=== PATIENT | male | born 1955 | race Caucasian/White ===

== ENCOUNTER 2017-08-07 05:59 | Emergency (ER) | payer MEDICAID ==
[~2017-08-07] VITALS: Ht 188 cm; Wt 80.0 kg
[~2017-08-07 05:59] MED LIST: ACET325T21 PO; ALBU18HF INH; ALBU2.5V11 NEB; ALBU8.5H5 INH; ALPR0.25 PO; ALPR0.5T6 PO; BUDE10.2 INH; DOCU-131 PO; FLUT1DIS3 INH; FURO-92 PO; GUAI5SYR PO; HYDR-3237 PO; IPRA0.2S35 INH; IPRA3AMP INH; LACT10SO5 NG; LEVO500T8 PO; MAGN400T7 PO; METH4TAB2 PO; METO25TA35 PO; NICO-485 TD; NICO-487 TD; OXYGEN INH; PANT40TA3 PO; POTA10TA31 PO; PRED10TA14 PO; PRED20TA PO; SPIR50TA2 PO; TIOT18CA INH; TIOT4MIS5 INH
[2017-08-07] MEDS ORDERED: DIAZEPAM 5 MG TABLET PO STA (06:12)
[2017-08-07] MEDS ORDERED: IBUPROFEN 200 MG TABLET ONE (06:13)
[2017-08-07] MEDS ORDERED: DIAZEPAM 5 MG TABLET ONE (06:13)
[2017-08-07] MEDS ORDERED: IBUPROFEN 200 MG TABLET PO ONE (06:30)
[2017-08-07 06:58] LABS: HEMATOCRIT 42.1 % (39.2-51.8); HEMOGLOBIN 14.1 g/dL (13.7-18.0); WHITE BLOOD COUNT 6.9 x10^3/uL (3.4-10)
[2017-08-07 07:13] LABS: BLOOD UREA NITROGEN 14 mg/dL (7-18)
[2017-08-07 07:17] LABS: IS PT STATUS REG ER OR PRE ER? YES
[2017-08-07 09:14] VITALS: BP 112/76
== END 2017-08-07 09:17 | disposition home or self-care (01) ==
LOC: ED 06:57
DX: S39.012A Strain of muscle, fascia and tendon of lower back, initial encounter (principal); J44.9 Chronic obstructive pulmonary disease, unspecified; I50.9 Heart failure, unspecified; Z87.891 Personal history of nicotine dependence; X58.XXXA Exposure to other specified factors, initial encounter; Y93.89 Activity, other specified; Y92.89 Other specified places as the place of occurrence of the external cause; Y99.8 Other external cause status
CPT/HCPCS: 36415; 71010; 80048; 82040; 84484; 85025; 85379; 93005; 99285

== ENCOUNTER 2019-10-07 16:48 | Inpatient (IN) | payer MEDICAID ==
[~2019-10-07] VITALS: Ht 172.7 cm; Wt 69.2 kg
[~2019-10-07 16:48] MED LIST changes: -IPRA3AMP INH; +IPRA3AMP30 INH; +LACT10SO24 NG; -LACT10SO5 NG; -MAGN400T7 PO; +MAGN400T9 PO; +PROPOFOL 10 MG/ML, 100ML IV ONE; +ROCURONIUM 10MG/ML,5ML ONE; -SPIR50TA2 PO; +SPIR50TA4 PO
--- NOTE | 2019-10-07 16:50 | NUR ---
Code lupe called @ 6502 PT arrived @ 5574
[2019-10-07] MEDS ORDERED: ETOMIDATE 20 MG/10 ML ONE (17:10)
[2019-10-07] MEDS: PROPOFOL 100 ML IV PRN (17:17)
[2019-10-07 17:22] LABS: MEAN CORPUSCULAR HEMOGLOBIN 31.5 pg (27.5-34.5); MEAN CORPUSCULAR HGB CONC 32.4 g/dL (33.2-36.2); MEAN CORPUSCULAR VOLUME 97.4 fL (81-97); MEAN PLATELET VOLUME 6.6 fL (7.4-10.4); PLATELET COUNT 231 x10^3/uL (130-400); RED BLOOD COUNT 4.46 x10^6/uL (4.38-5.82); RED CELL DISTRIBUTION WIDTH 14.9 % (9.4-14.8)
[2019-10-07] MEDS ORDERED: ROCURONIUM 10 MG/ML,10ML IVPush ONE (17:30)
[2019-10-07] MEDS ORDERED: NOREPINEPHRINE 4 MG in SODIUM CHLORIDE 0.9% 246 ML IV PRN (17:30)
[2019-10-07] MEDS ORDERED: ETOMIDATE 20 MG/10 ML IV ONE (17:30)
[2019-10-07] MEDS ORDERED: SODIUM CHLORIDE FLUSH 10ML SYR IVF ONE (17:30)
[2019-10-07] MEDS ORDERED: SODIUM CHLORIDE 0.9% 1,000ML IVBOLUS ONE (17:30)
[2019-10-07 17:34] LABS: ALANINE AMINOTRANSFERASE 254 U/L (12-78); ALBUMIN 2.8 g/dL (3.4-5.0); ANION GAP 13 mmol/L (5-15); CALCIUM 8.4 mg/dL (8.5-10.1); CHLORIDE 104 mmol/L (98-107); CREATININE 1.12 mg/dL (0.7-1.3)
[2019-10-07 17:39] LABS: ALKALINE PHOSPHATASE 208 U/L (45-117); BILIRUBIN,TOTAL 0.9 mg/dL (0.2-1.0); TOTAL PROTEIN 6.2 g/dL (6.4-8.2); TROPONIN I 0.094 ng/mL (0.000-0.045)
--- NOTE | 2019-10-07 17:42 | NUR ---
[facility] STATUS POST CARDIAC ARREST. PER EMS PT WAS IN ASYSTOLE AND CONVERTED TO PEA THEN SINUS TACH AT A RATE OF 120. PT INTUBATED BY ER PHYSICIAN 8.0 AND 243 AT TEETH. 100 MG ROCURONIUM AND 10 MG GIVEN PRIOR TO INTUBATION.
--- NOTE | 2019-10-07 17:42 | NUR ---
LAB CALLED CRITICAL LACTATE OF 10.4. MADE AWARE.
[2019-10-07 17:46] LABS: INTERNATIONAL NORMALIZED RATIO 1.16 (0.93-1.1); PROTHROMBIN TIME 12.1 Seconds (9.6-11.5)
--- NOTE | 2019-10-07 17:49 | NUR ---
1000 ML NS COMPLETED BY EMS. 1000 ML NS COMPLETED BY THIS RN. PER MD 500 ML MORE TO GIVE.
[2019-10-07 17:51] LABS: MD YES
[2019-10-07] MEDS ORDERED: PIPERACILLIN/TAZO/PMX 3.375GM 50 ML IV ONE (18:00)
[2019-10-07] MEDS ORDERED: VANCOMYCIN PER PHARMACY MC ONE (18:00)
[2019-10-07] MEDS ORDERED: SODIUM CHLORIDE 0.9%, 500ML IVBOLUS ONE (18:00)
[2019-10-07] MEDS ORDERED: PIPERACILLIN/TAZO/PMX 3.375GM 50 ML ONE ×2 (18:08→23:49)
[2019-10-07] MEDS: PIPERACILLIN/TAZO/PMX 3.375GM 50 ML IV SCH (18:20)
[2019-10-07] MEDS ORDERED: VANCOMYCIN 1,400 MG in SODIUM CHLORIDE 0.9% 250 ML IV ONE (18:30)
[2019-10-07 18:38] LABS: BAND#(MANUAL) 4.55 x10^3/uL; BANDS%(MANUAL) 37 % (0-7); LYMPH#(MANUAL) 0.37 x10^3/uL (1-3.4); LYMPHS% (MANUAL) 3 % (22-44); MONOS#(MANUAL) 0.74 x10^3/uL (0.3-2.7); MONOS% (MANUAL) 6 % (2-9); SEG#(MANUAL) 6.64 x10^3/uL (1.8-6.8); SEGS% (MANUAL) 54 % (42-75)
[2019-10-07 18:39] LABS: <PLATELET ESTIMATE> ADEQUATE; <PLT MORPHOLOGY> NORMAL PLT MORPH; ANISOCYTOSIS 1+; TOXIC GRAN 1+
--- NOTE | 2019-10-07 18:43 | NUR ---
RT TURNED DOWN FIO2 TO 50. PT PO2 DOWN TO 89. FIO2 INCREASED BY THIS RN TO 100 IN 2 MINUTE INTERVALS. RT MADE AWARE.
--- NOTE | 2019-10-07 18:47 | NUR ---
PER MD CONTRAINDICATION TO TARGET TEMP COOLING IS SEPSIS.
[2019-10-07] MEDS ORDERED: FENTANYL PF 100 MCG/2ML ONE ×2 (19:42→21:25)
--- NOTE | 2019-10-07 19:58 | NUR ---
FIO2 AT 70 PEEP AT 8. SPO2 DOWN TO 88% . RT IN ROOM NOW NEW SETTINGS 70 FIO2, PEEP 10.
[2019-10-07] MEDS ORDERED: FENTANYL PF 100 MCG/2ML IVPush ONE ×2 (20:00→21:30)
--- NOTE | 2019-10-07 21:04 | NUR ---
LATE NOTE 2029. PT AWAKE AT THIS TIME MOVING ALL 4 EXTREMITIES. PT ABLE TO ANSWER YES NO QUESTIONS. PT STAES HIS STOMACH HURTS. DR CROCKER MADE AWARE. PROPOFOL INCREASED TO 15 MCG/KG/MIN. PT NOW RESTING COMFORTABLY IN BED. FIO2 OF 70 PEEP OF 10. PT MOVED TO HOSPITAL BED. TUBE PLACEMENT REMAINS 24 AT THE TEETH WITH SECUREMENT DEVICE IN PLACE. URINE OUTPUT THIS STAY SO FAR AT 550 ML. INTAKE AT 2800 ML
--- NOTE | 2019-10-07 21:22 | NUR ---
PT IN BED WITH EYES OPEN. PT IS BITING AT THE TUBE. PT ASKED IF TUBE IS HURTING HIM. NODS HEAD YES. MD MADE AWARE VERBAL ORDER FOR ONE TIME DOSE OF 100 MCG OF FENTANYL.
[2019-10-07] MEDS ORDERED: VANCOMYCIN PER PHARMACY MC PRN (22:00)
[2019-10-07] MEDS ORDERED: ONDANSETRON 2MG/ML, 2ML IVPush PRN (22:00)
[2019-10-07] MEDS ORDERED: ENOXAPARIN 40 MG/0.4 ML ONE (22:26)
[2019-10-07] MEDS ORDERED: FAMOTIDINE 20 MG/2 ML ONE (22:27)
[2019-10-07] MEDS ORDERED: ACETAMINOPHEN 650 MG SUPP ONE (22:27)
--- NOTE | 2019-10-07 22:30 | NUR ---
REPORT RECEIVED AND CARE ASSUMED. PT WITH OLMOS TEMP 101.1. TACHY ON MONITOR 117. DISCUSSED WITH DR CROCKER AND ORDER FOR 650 MG TYLENOL SUPOSSITORY RECEIVED. PT MEDICATED PER DEC. PT NOT FULLY SEDATED. OPENING EYES AND NODDING HEAD. RESP AT BEDSIDE TO REASSESS. PROPOFOL ADJUSTED FOR SEDATION. AWAITING PULMONOLOGY TO EVAL FOR FURTHER SEDATION ORDERS.
[2019-10-07] MEDS ORDERED: ACETAMINOPHEN 650 MG SUPP PR PRN (23:00)
--- NOTE | 2019-10-07 23:05 | NUR ---
PULMONOLOGY AT BEDSIDE TO EVAL. PT CONTINUES TO OPEN EYES INTERMITTENTLY-DOES NOT APPEAR IN ACUTE DISTRESS AT THIS TIME. REQUESTED MORE SEDATION ORDERS FROM PULM--AWAITING ORDERS. NO VERBALS GIVEN. PROPOFOL INCREASED.
[2019-10-07] MEDS: SODIUM CHLORIDE 0.9% 1,000 ML IV SCH (23:10)
[2019-10-07] MEDS: FAMOTIDINE 20 MG/2 ML IV SCH (23:13)
[2019-10-07] MEDS: ENOXAPARIN 40 MG/0.4 ML SQ SCH (23:36)
[2019-10-07] MEDS ORDERED: PROPOFOL 100 ML IV ONE (23:41)
[2019-10-08 00:09] LABS: TROPONIN I 0.762 ng/mL (0.000-0.045)
[2019-10-08] MEDS ORDERED: PHARMACOKINETIC MONITORING MC PRN (00:30)
--- NOTE | 2019-10-08 00:35 | NUR ---
DISCUSSED PT VS WITH DR CROCKER. ORDER FOR ICE PACKS TO HELP COOL PT RECEIVED. NO NEW MEDS. MD AWARE OF PT'S BP AND NEED FOR INCREASED LEVO. AWARE OF REPEAT TROP LEVELS. DISCUSSED UA--ONE TO BE COLLECTED AND SENT. NO FURTHER ORDERS AT THIS TIME.
[2019-10-08] MEDS ORDERED: NOREPINEPHRINE 4 MG in SODIUM CHLORIDE 0.9% 246 ML IV PRN (00:40)
[2019-10-08] MEDS ORDERED: LIDOCAINE-MPF 1%, 2ML ENDO PRN (01:00)
[2019-10-08] MEDS ORDERED: SENNA 176 MG/5 ML ORAL SOL NG PRN (01:00)
[2019-10-08] MEDS ORDERED: PHARMACY MAY ADJ FOR RENAL FX MC SCH (01:00)
[2019-10-08] MEDS ORDERED: DEXTROSE 4 GM TAB.CHEW PO PRN (01:00)
[2019-10-08] MEDS ORDERED: DEXTROSE 50%, 50ML SYRINGE IVPush PRN (01:00)
[2019-10-08] MEDS: ALBUTEROL/IPRATROPIUM 2.5MG/0.5MG, 3 ML INLINE SCH ×5 (01:00→22:08)
[2019-10-08] MEDS ORDERED: SENNA/DOCUSATE TABLET NG PRN (01:00)
[2019-10-08] MEDS ORDERED: GLUCAGON 1 MG IM PRN (01:00)
[2019-10-08] MEDS ORDERED: FENTANYL PF 100 MCG/2ML ONE ×3 (01:02→06:56)
[2019-10-08] MEDS: FENTANYL PF 100 MCG/2ML IVPush PRN ×7 (01:05→06:59)
--- NOTE | 2019-10-08 01:06 | NUR ---
ORDERS RECEIVED. PT CONTINUES WITH INTERMITTENT EYE OPENING. MEDICATED PER DEC.
[2019-10-08 01:18] LABS: MICROSCOPIC INDICATED
[2019-10-08 01:23] LABS: TROPONIN I 0.927 ng/mL (0.000-0.045)
[2019-10-08 01:28] LABS: CULTURE INDICATED? YES
[2019-10-08 01:30] LABS: MEAN CORPUSCULAR HEMOGLOBIN 32.1 pg (27.5-34.5); MEAN CORPUSCULAR HGB CONC 33.2 g/dL (33.2-36.2); MEAN CORPUSCULAR VOLUME 96.8 fL (81-97); MEAN PLATELET VOLUME 6.9 fL (7.4-10.4); PLATELET COUNT 205 x10^3/uL (130-400); RED BLOOD COUNT 4.07 x10^6/uL (4.38-5.82); RED CELL DISTRIBUTION WIDTH 15.5 % (9.4-14.8)
[2019-10-08] MEDS ORDERED: ALPR0.5T7 PO (01:35)
[2019-10-08] MEDS ORDERED: GUAI400T81 PO (01:35)
[2019-10-08] MEDS ORDERED: GUAI100L6 PO (01:35)
[2019-10-08] MEDS ORDERED: IPRA3AMP30 IH (01:35)
[2019-10-08] MEDS ORDERED: BUDE10.2 INH (01:35)
[2019-10-08] MEDS ORDERED: ALBU90AE INH (01:35)
[2019-10-08] MEDS ORDERED: HYDR-3240 PO (01:35)
[2019-10-08] MEDS ORDERED: PRED10TA PO (01:35)
[2019-10-08] MEDS ORDERED: TIOT18CA INH (01:35)
[2019-10-08] MEDS ORDERED: ACET650S21 PO (01:35)
[2019-10-08] MEDS: PIPERACILLIN/TAZO/PMX 3.375GM 50 ML IV SCH ×3 (01:39→18:44)
[2019-10-08 01:51] LABS: MD YES
[2019-10-08 01:54] LABS: BAND#(MANUAL) 2.54 x10^3/uL; BANDS%(MANUAL) 41 % (0-7); LYMPH#(MANUAL) 0.43 x10^3/uL (1-3.4); LYMPHS% (MANUAL) 7 % (22-44); METAMYELOCYTES# (MANUAL) 0.37 x10^3/uL (0-0); METAMYELOCYTES% (MANUAL) 6 % (0-1); MONOS#(MANUAL) 0.06 x10^3/uL (0.3-2.7); MONOS% (MANUAL) 1 % (2-9); SEG#(MANUAL) 2.79 x10^3/uL (1.8-6.8); SEGS% (MANUAL) 45 % (42-75)
[2019-10-08 01:55] LABS: <PLATELET ESTIMATE> ADEQUATE; <PLT MORPHOLOGY> NORMAL PLT MORPH; ANISOCYTOSIS 1+; TOXIC GRAN 1+
[2019-10-08] MEDS ORDERED: ALBUTEROL/IPRATROPIUM 2.5MG/0.5MG, 3 ML ONE (02:00)
--- NOTE | 2019-10-08 02:03 | NUR ---
DISCUSSED PT'S TROP 0.[address] CROCKER--NO NEW ORDERS. OBI AWARE OF PT'S CONTINUED TEMP 102. ORDER FOR TYLENOL SUPPOSITORY 650MG Q4H PRN TEMP RECEIVED. AWARE OF AST/ALT ELEVATED--OK TO GIVE. NO FURTHER ORDERS AT THIS TIME.
[2019-10-08] MEDS ORDERED: ACETAMINOPHEN 650 MG SUPP ONE (02:20)
[2019-10-08] MEDS: ACETAMINOPHEN 650 MG SUPP PR PRN (02:57)
--- NOTE | 2019-10-08 03:13 | NUR ---
PT MEDICATED PER MAR FOR CONTINUED FEVERS. NO CHANGES MADE TO DRIPS. PT TOLERATING WELL AT THIS TIME.
[2019-10-08] MEDS: NOREPINEPHRINE 4 MG in SODIUM CHLORIDE 0.9% 246 ML IV PRN ×3 (03:16→14:17)
--- NOTE | 2019-10-08 03:42 | NUR ---
CALLED TO CLARIFY VANCO ORDERS WITH PHARMACY. NO MORE VANCO TO BE GIVEN TONIGHT PER VASU. NONE SCHEDULED AT THIS TIME.
--- NOTE | 2019-10-08 04:23 | NUR ---
PT OPENING EYES AND APPEARING UNCOMFORTABLE. MEDICATED PER MAR. TEMP IMPROVING. LEVO AND PROPOFOL INFUSIONS REMAIN THE SAME AT THIS TIME.
--- NOTE | 2019-10-08 05:20 | NUR ---
PT OPENING EYES. MEDICATED PER DEC AND PROPOFOL INCREASED. REPORT TO TREVOR GALO.
--- NOTE | 2019-10-08 05:37 | NUR ---
BEDSIDE REPORT RECEIVED FROM CLOVER QUIROZ.
[2019-10-08 06:29] LABS: MEAN CORPUSCULAR HGB CONC 32.9 g/dL (33.2-36.2); MEAN CORPUSCULAR VOLUME 97.3 fL (81-97); MEAN PLATELET VOLUME 6.9 fL (7.4-10.4); PLATELET COUNT 159 x10^3/uL (130-400); RED BLOOD COUNT 4.98 x10^6/uL (4.38-5.82); RED CELL DISTRIBUTION WIDTH 15.8 % (9.4-14.8)
[2019-10-08] MEDS ORDERED: PROPOFOL 100 ML IV ONE (06:31)
[2019-10-08 06:42] LABS: ALBUMIN 2.4 g/dL (3.4-5.0); ANION GAP 6 mmol/L (5-15); CALCIUM 8.1 mg/dL (8.5-10.1); CHLORIDE 108 mmol/L (98-107)
[2019-10-08 06:47] LABS: TROPONIN I 0.978 ng/mL (0.000-0.045)
[2019-10-08 06:48] LABS: ALANINE AMINOTRANSFERASE 349 U/L (12-78); ALKALINE PHOSPHATASE 184 U/L (45-117); BILIRUBIN,TOTAL 0.8 mg/dL (0.2-1.0); CREATININE 0.68 mg/dL (0.7-1.3); TOTAL PROTEIN 5.7 g/dL (6.4-8.2)
[2019-10-08 06:50] LABS: TROPONIN I 0.983 ng/mL (0.000-0.045)
--- NOTE | 2019-10-08 07:12 | NUR ---
HOSPITALIST AUDRA CONTACTED REGARDING ELEVATED TROP. REPEAT EKG COMPLETED. NO NEW ORDERS RECEIVED. BEDSIDE REPORT TO CLOVER KEMP
[2019-10-08 07:26] LABS: MD YES
[2019-10-08 07:28] LABS: <PLATELET ESTIMATE> ADEQUATE; <PLT MORPHOLOGY> NORMAL PLT MORPH; ANISOCYTOSIS 1+; BAND#(MANUAL) 4.08 x10^3/uL; BANDS%(MANUAL) 40 % (0-7); LYMPHS% (MANUAL) 1 % (22-44); METAMYELOCYTES# (MANUAL) 0.51 x10^3/uL (0-0); METAMYELOCYTES% (MANUAL) 5 % (0-1); MONOS#(MANUAL) 0.41 x10^3/uL (0.3-2.7); MONOS% (MANUAL) 4 % (2-9); SEGS% (MANUAL) 50 % (42-75)
[2019-10-08 07:29] LABS: PMNS WITH VACUOLES 1+; TOXIC GRAN 1+
[2019-10-08] MEDS: SODIUM CHLORIDE 0.9% 1,000 ML IV SCH ×3 (07:42→21:45)
[2019-10-08] MEDS: FAMOTIDINE 20 MG/2 ML IV SCH ×2 (11:41→22:30)
[2019-10-08] MEDS: PROPOFOL 100 ML IV PRN ×3 (11:41→18:42)
[2019-10-08] MEDS: SODIUM CHLORIDE FLUSH 10ML SYR IVF SCH ×2 (11:41→22:30)
[2019-10-08] MEDS: POTASSIUM CHLORIDE 10% 40 MEQ/30 ML UDC PO SCH ×2 (12:25→22:30)
[2019-10-08] MEDS: VANCOMYCIN 1,400 MG in SODIUM CHLORIDE 0.9% 250 ML IV SCH (15:01)
[2019-10-08] MEDS ORDERED: METOPROLOL 1 MG/ML, 5ML ONE ×2 (15:26→20:06)
[2019-10-08] MEDS ORDERED: METOPROLOL 1 MG/ML, 5ML IVPush STA (15:28)
[2019-10-08] MEDS ORDERED: ACETAMINOPHEN 650 MG/20.3 ML UDC ONE (15:33)
[2019-10-08] MEDS: ACETAMINOPHEN 650 MG/20.3 ML UDC NG PRN (15:37)
[2019-10-08] MEDS ORDERED: DIGOXIN 0.25 MG/ML, 2ML IVPush ONE (16:00)
[2019-10-08] MEDS ORDERED: NOREPINEPHRINE 16 MG in SODIUM CHLORIDE 0.9% 246 ML IV PRN (16:07)
[2019-10-08] MEDS ORDERED: PHENYLEPHRINE 20 MG in SODIUM CHLORIDE 0.9% 248 ML IV PRN (20:00)
[2019-10-08] MEDS ORDERED: METOPROLOL 1 MG/ML, 5ML IVPush ONE (20:30)
[2019-10-08] MEDS: ENOXAPARIN 40 MG/0.4 ML SQ SCH (22:30)
[2019-10-08] MEDS: DIGOXIN 0.25 MG/ML, 2ML IVPush SCH (22:31)
[2019-10-09] MEDS: PIPERACILLIN/TAZO/PMX 3.375GM 50 ML IV SCH ×3 (00:05→11:38)
[2019-10-09] MEDS: PROPOFOL 100 ML IV PRN ×3 (01:05→17:21)
[2019-10-09] MEDS: ALBUTEROL/IPRATROPIUM 2.5MG/0.5MG, 3 ML INLINE SCH ×7 (03:36→22:51)
[2019-10-09] MEDS: DIGOXIN 0.25 MG/ML, 2ML IVPush SCH (04:09)
[2019-10-09 04:36] LABS: MEAN CORPUSCULAR HEMOGLOBIN 31.6 pg (27.5-34.5); MEAN CORPUSCULAR HGB CONC 32.6 g/dL (33.2-36.2); MEAN CORPUSCULAR VOLUME 96.9 fL (81-97); MEAN PLATELET VOLUME 7.2 fL (7.4-10.4); PLATELET COUNT 140 x10^3/uL (130-400); RED BLOOD COUNT 3.72 x10^6/uL (4.38-5.82); RED CELL DISTRIBUTION WIDTH 15.9 % (9.4-14.8)
[2019-10-09 04:45] LABS: ALANINE AMINOTRANSFERASE 187 U/L (12-78); ALBUMIN 1.8 g/dL (3.4-5.0); ANION GAP 4 mmol/L (5-15); CALCIUM 7.6 mg/dL (8.5-10.1); CHLORIDE 114 mmol/L (98-107)
[2019-10-09 04:48] LABS: ALKALINE PHOSPHATASE 138 U/L (45-117); BILIRUBIN,TOTAL 0.7 mg/dL (0.2-1.0); CREATININE 0.53 mg/dL (0.7-1.3); TOTAL PROTEIN 4.9 g/dL (6.4-8.2)
[2019-10-09 05:45] LABS: MD YES
[2019-10-09 05:47] LABS: BAND#(MANUAL) 3.03 x10^3/uL; BANDS%(MANUAL) 34 % (0-7); LYMPH#(MANUAL) 0.27 x10^3/uL (1-3.4); LYMPHS% (MANUAL) 3 % (22-44); METAMYELOCYTES# (MANUAL) 0.09 x10^3/uL (0-0); METAMYELOCYTES% (MANUAL) 1 % (0-1); MONOS#(MANUAL) 0.18 x10^3/uL (0.3-2.7); MONOS% (MANUAL) 2 % (2-9); SEG#(MANUAL) 5.34 x10^3/uL (1.8-6.8); SEGS% (MANUAL) 60 % (42-75)
[2019-10-09 05:48] LABS: <PLATELET ESTIMATE> ADEQUATE; <PLT MORPHOLOGY> NORMAL PLT MORPH; <RBC MORPHOLOGY> NORMAL; TOXIC GRAN 1+
[2019-10-09] MEDS ORDERED: MAGNESIUM SULFATE PMX 2GM/50ML 50 ML IV ONE (08:00)
[2019-10-09] MEDS: FAMOTIDINE 20 MG/2 ML IV SCH ×2 (08:18→21:34)
[2019-10-09] MEDS: SODIUM CHLORIDE FLUSH 10ML SYR IVF SCH ×2 (08:19→21:34)
[2019-10-09] MEDS: VANCOMYCIN 1,400 MG in SODIUM CHLORIDE 0.9% 250 ML IV SCH (08:19)
[2019-10-09] MEDS: SODIUM CHLORIDE 0.9% 1,000 ML IV SCH ×2 (11:38→23:09)
[2019-10-09] MEDS ORDERED: AMIODARONE 900 MG in DEXTROSE 5% 482 ML IV PRN (15:00)
[2019-10-09] MEDS ORDERED: FILTER 0.22 MICRON IV PRN (15:00)
[2019-10-09] MEDS ORDERED: AMIODARONE 150 MG in DEXTROSE 5% 100 ML IV ONE ×2 (15:00→15:30)
[2019-10-09] MEDS: CEFTRIAXONE PMX 1GM/50ML 50 ML IV SCH (15:46)
[2019-10-09] MEDS: ENOXAPARIN 40 MG/0.4 ML SQ SCH (21:34)
[2019-10-10] MEDS: PROPOFOL 100 ML IV PRN ×3 (02:14→16:43)
[2019-10-10] MEDS: ALBUTEROL/IPRATROPIUM 2.5MG/0.5MG, 3 ML INLINE SCH ×6 (03:21→22:32)
[2019-10-10 04:25] LABS: MEAN CORPUSCULAR HEMOGLOBIN 31.3 pg (27.5-34.5); MEAN CORPUSCULAR HGB CONC 33.2 g/dL (33.2-36.2); MEAN CORPUSCULAR VOLUME 94.2 fL (81-97); MEAN PLATELET VOLUME 7.7 fL (7.4-10.4); PLATELET COUNT 121 x10^3/uL (130-400); RED BLOOD COUNT 3.38 x10^6/uL (4.38-5.82); RED CELL DISTRIBUTION WIDTH 15.8 % (9.4-14.8)
[2019-10-10 05:37] LABS: MD YES
[2019-10-10 05:40] LABS: BAND#(MANUAL) 0.74 x10^3/uL; BANDS%(MANUAL) 10 % (0-7); EOS#(MANUAL) 0.07 x10^3/uL (0.0-0.4); EOS% (MANUAL) 1 % (1-7); LYMPH#(MANUAL) 0.22 x10^3/uL (1-3.4); LYMPHS% (MANUAL) 3 % (22-44); MONOS#(MANUAL) 0.22 x10^3/uL (0.3-2.7); MONOS% (MANUAL) 3 % (2-9); MYELOCYTES# (MANUAL) 0.07 x10^3/uL (0-0); MYELOCYTES% (MANUAL) 1 % (0-0); NRBC % (MANUAL) 1 % (0-1); SEG#(MANUAL) 6.07 x10^3/uL (1.8-6.8); SEGS% (MANUAL) 82 % (42-75)
[2019-10-10 05:41] LABS: <PLATELET ESTIMATE> ADEQUATE; <PLT MORPHOLOGY> NORMAL PLT MORPH; ANISOCYTOSIS 1+; TOXIC GRAN 1+
[2019-10-10] MEDS: SODIUM CHLORIDE FLUSH 10ML SYR IVF SCH ×2 (07:16→20:33)
[2019-10-10 07:27] LABS: ANION GAP 6 mmol/L (5-15); CALCIUM 7.8 mg/dL (8.5-10.1); CHLORIDE 112 mmol/L (98-107); CREATININE 0.49 mg/dL (0.7-1.3)
[2019-10-10] MEDS: FENTANYL PF 100 MCG/2ML IVPush PRN ×2 (07:54→23:47)
[2019-10-10] MEDS: SODIUM CHLORIDE 0.9% 1,000 ML IV SCH (08:35)
[2019-10-10] MEDS: methylPREDNISolone SOD SUCC 40 MG/ML IVPush SCH ×3 (09:29→23:47)
[2019-10-10] MEDS: FAMOTIDINE 20 MG/2 ML IV SCH ×2 (09:30→20:33)
[2019-10-10 10:43] LABS: HIT RESULT NEGATIVE (NEGATIVE)
[2019-10-10] MEDS ORDERED: ALBUMIN HUMAN 25% 100 ML IV ONE (11:30)
--- NOTE | 2019-10-10 11:34 | NUR ---
TF GOAL: w/ propofol: PROMOTE @ 75ml/hr; without propofol: 80ml/hr
[2019-10-10] MEDS: CEFTRIAXONE PMX 1GM/50ML 50 ML IV SCH (15:00)
[2019-10-10] MEDS: ENOXAPARIN 40 MG/0.4 ML SQ SCH (20:33)
[2019-10-11] MEDS: ALBUTEROL/IPRATROPIUM 2.5MG/0.5MG, 3 ML INLINE SCH ×6 (02:38→22:12)
[2019-10-11 03:55] LABS: MEAN CORPUSCULAR HEMOGLOBIN 31.8 pg (27.5-34.5); MEAN CORPUSCULAR VOLUME 93.4 fL (81-97); MEAN PLATELET VOLUME 7.4 fL (7.4-10.4); PLATELET COUNT 128 x10^3/uL (130-400); RED BLOOD COUNT 3.01 x10^6/uL (4.38-5.82); RED CELL DISTRIBUTION WIDTH 15.1 % (9.4-14.8)
[2019-10-11 04:04] LABS: MD YES
[2019-10-11 04:09] LABS: <PLATELET ESTIMATE> ADEQUATE; <PLT MORPHOLOGY> NORMAL PLT MORPH; <RBC MORPHOLOGY> NORMAL; BAND#(MANUAL) 0.11 x10^3/uL; BANDS%(MANUAL) 2 % (0-7); LYMPH#(MANUAL) 0.21 x10^3/uL (1-3.4); LYMPHS% (MANUAL) 4 % (22-44); METAMYELOCYTES# (MANUAL) 0.05 x10^3/uL (0-0); METAMYELOCYTES% (MANUAL) 1 % (0-1); SEG#(MANUAL) 4.93 x10^3/uL (1.8-6.8); SEGS% (MANUAL) 93 % (42-75); TOXIC GRAN 1+
[2019-10-11] MEDS: PROPOFOL 100 ML IV PRN ×2 (05:11→17:55)
[2019-10-11] MEDS: FUROSEMIDE 20 MG/2 ML IV SCH ×2 (09:18→21:01)
[2019-10-11] MEDS: methylPREDNISolone SOD SUCC 40 MG/ML IVPush SCH ×2 (09:19→17:23)
[2019-10-11] MEDS: SODIUM CHLORIDE FLUSH 10ML SYR IVF SCH ×2 (09:19→21:00)
[2019-10-11 10:35] LABS: ANION GAP 7 mmol/L (5-15); CHLORIDE 111 mmol/L (98-107); CREATININE 0.49 mg/dL (0.7-1.3)
[2019-10-11] MEDS: AMIODARONE 200 MG TABLET PO SCH ×2 (11:07→21:01)
[2019-10-11] MEDS: FAMOTIDINE 20 MG/2 ML IV SCH ×2 (11:07→21:00)
[2019-10-11] MEDS ORDERED: DEXMEDETOMIDINE 200 MCG in SODIUM CHLORIDE 0.9% 48 ML IV PRN (13:30)
[2019-10-11] MEDS: CEFTRIAXONE PMX 1GM/50ML 50 ML IV SCH (15:38)
[2019-10-11] MEDS: FENTANYL PF 100 MCG/2ML IVPush PRN ×2 (17:23→21:02)
[2019-10-11] MEDS: ENOXAPARIN 40 MG/0.4 ML SQ SCH (21:01)
[2019-10-12] MEDS: FENTANYL PF 100 MCG/2ML IVPush PRN ×3 (01:04→15:32)
[2019-10-12] MEDS: methylPREDNISolone SOD SUCC 40 MG/ML IVPush SCH ×2 (01:04→07:36)
[2019-10-12] MEDS: DEXMEDETOMIDINE 400 MCG in SODIUM CHLORIDE 0.9% 96 ML IV PRN ×2 (01:52→17:42)
[2019-10-12] MEDS: ALBUTEROL/IPRATROPIUM 2.5MG/0.5MG, 3 ML INLINE SCH ×6 (02:40→22:00)
[2019-10-12 05:58] LABS: BASOPHILS % (AUTO) 0 % (0-1); EOSINOPHILS % (AUTO) 0 % (1-7); LYMPHOCYTES # (AUTO) 0.14 x10^3/uL (1-3.4); LYMPHOCYTES % (AUTO) 3 % (22-44); MD NO; MEAN CORPUSCULAR HEMOGLOBIN 31.8 pg (27.5-34.5); MEAN CORPUSCULAR VOLUME 93.6 fL (81-97); MEAN PLATELET VOLUME 7.2 fL (7.4-10.4); MONOCYTES % (AUTO) 4 % (2-9); NEUTROPHILS # (AUTO) 5.05 x10^3/uL (1.8-6.8); NEUTROPHILS % (AUTO) 94 % (42-75); PLATELET COUNT 165 x10^3/uL (130-400); RED BLOOD COUNT 3.26 x10^6/uL (4.38-5.82); RED CELL DISTRIBUTION WIDTH 14.8 % (9.4-14.8)
[2019-10-12] MEDS: FUROSEMIDE 20 MG/2 ML IV SCH (07:35)
[2019-10-12] MEDS: SODIUM CHLORIDE FLUSH 10ML SYR IVF SCH ×2 (07:35→21:38)
[2019-10-12] MEDS: AMIODARONE 200 MG TABLET PO SCH ×2 (07:36→21:38)
[2019-10-12] MEDS: FAMOTIDINE 20 MG/2 ML IV SCH ×2 (09:05→21:37)
[2019-10-12 09:32] LABS: ANION GAP 5 mmol/L (5-15); CALCIUM 8.2 mg/dL (8.5-10.1); CHLORIDE 109 mmol/L (98-107); CREATININE 0.65 mg/dL (0.7-1.3)
[2019-10-12] MEDS ORDERED: methylPREDNISolone SOD SUCC 40 MG/ML IVPush SCH (10:00)
[2019-10-12] MEDS: POTASSIUM CHLORIDE 10% 20 MEQ/15 ML UDC PO SCH ×2 (10:00→21:37)
[2019-10-12] MEDS ORDERED: POTASSIUM CHLORIDE 20 MEQ PACKET ONE ×2 (10:09→21:29)
[2019-10-12] MEDS: BUSPIRONE 10 MG TABLET PO SCH ×3 (10:17→21:37)
[2019-10-12] MEDS: INSULIN LISPRO 100 UNITS/ML, PEN SQ-INSULIN SCH ×3 (10:55→23:21)
[2019-10-12] MEDS ORDERED: INSULIN LISPRO 100 UNITS/ML, PEN SQ-INSULIN SCH (11:00)
[2019-10-12] MEDS: CEFTRIAXONE PMX 1GM/50ML 50 ML IV SCH (15:33)
[2019-10-12] MEDS: PROPOFOL 100 ML IV PRN (19:31)
[2019-10-12] MEDS: FUROSEMIDE 40 MG/4 ML IV SCH (21:37)
[2019-10-12] MEDS: ENOXAPARIN 40 MG/0.4 ML SQ SCH (21:38)
[2019-10-13] MEDS: FENTANYL PF 100 MCG/2ML IVPush PRN ×3 (01:09→21:42)
[2019-10-13] MEDS: PROPOFOL 100 ML IV PRN (01:48)
[2019-10-13] MEDS: ALBUTEROL/IPRATROPIUM 2.5MG/0.5MG, 3 ML INLINE SCH ×6 (02:00→22:00)
[2019-10-13 04:22] LABS: ANION GAP 5 mmol/L (5-15); BASOPHILS % (AUTO) 0 % (0-1); CALCIUM 8.2 mg/dL (8.5-10.1); CHLORIDE 106 mmol/L (98-107); CREATININE 0.52 mg/dL (0.7-1.3); EOSINOPHILS % (AUTO) 0 % (1-7); LYMPHOCYTES # (AUTO) 0.25 x10^3/uL (1-3.4); LYMPHOCYTES % (AUTO) 3 % (22-44); MD NO; MEAN CORPUSCULAR HEMOGLOBIN 31.1 pg (27.5-34.5); MEAN CORPUSCULAR HGB CONC 33.2 g/dL (33.2-36.2); MEAN CORPUSCULAR VOLUME 93.6 fL (81-97); MEAN PLATELET VOLUME 7.6 fL (7.4-10.4); MONOCYTES # (AUTO) 0.36 x10^3/uL (0.2-0.8); MONOCYTES % (AUTO) 5 % (2-9); NEUTROPHILS # (AUTO) 6.67 x10^3/uL (1.8-6.8); NEUTROPHILS % (AUTO) 92 % (42-75); PLATELET COUNT 201 x10^3/uL (130-400); RED BLOOD COUNT 3.34 x10^6/uL (4.38-5.82); RED CELL DISTRIBUTION WIDTH 14.7 % (9.4-14.8)
[2019-10-13] MEDS: INSULIN LISPRO 100 UNITS/ML, PEN SQ-INSULIN SCH ×4 (04:35→23:00)
[2019-10-13] MEDS: SODIUM CHLORIDE FLUSH 10ML SYR IVF SCH ×2 (08:51→21:30)
[2019-10-13] MEDS: FUROSEMIDE 40 MG/4 ML IV SCH (08:51)
[2019-10-13] MEDS: POTASSIUM CHLORIDE 10% 20 MEQ/15 ML UDC PO SCH (08:51)
[2019-10-13] MEDS: FAMOTIDINE 20 MG/2 ML IV SCH ×2 (08:51→21:30)
[2019-10-13] MEDS: AMIODARONE 200 MG TABLET PO SCH ×2 (08:52→21:30)
[2019-10-13] MEDS: BUSPIRONE 10 MG TABLET PO SCH ×3 (08:52→21:30)
[2019-10-13] MEDS: ALPRazolam 1MG TAB PO SCH ×3 (08:54→21:48)
[2019-10-13] MEDS: methylPREDNISolone SOD SUCC 40 MG/ML IVPush SCH (08:54)
[2019-10-13] MEDS ORDERED: METOLAZONE 2.5 MG TABLET PO SCH (09:16)
[2019-10-13] MEDS: DEXMEDETOMIDINE 400 MCG in SODIUM CHLORIDE 0.9% 96 ML IV PRN ×3 (10:18→23:10)
[2019-10-13] MEDS: INSULIN GLARGINE 100 UNITS/ML, PEN SQ-INSULIN SCH (11:32)
[2019-10-13] MEDS ORDERED: SODIUM CHLORIDE 0.9%, 250ML IVBOLUS ONE (12:00)
[2019-10-13] MEDS: CEFTRIAXONE PMX 1GM/50ML 50 ML IV SCH (15:37)
[2019-10-13] MEDS ORDERED: SODIUM CHLORIDE 0.9%, 500ML IVBOLUS ONE (17:30)
[2019-10-13] MEDS: POTASSIUM CHLORIDE 10% 40 MEQ/30 ML UDC PO SCH (21:31)
[2019-10-13] MEDS: ENOXAPARIN 40 MG/0.4 ML SQ SCH (21:49)
[2019-10-14] MEDS: ALBUTEROL/IPRATROPIUM 2.5MG/0.5MG, 3 ML INLINE SCH ×6 (02:00→22:00)
[2019-10-14] MEDS: FENTANYL PF 100 MCG/2ML IVPush PRN ×3 (03:39→21:32)
[2019-10-14] MEDS: DEXMEDETOMIDINE 400 MCG in SODIUM CHLORIDE 0.9% 96 ML IV PRN ×3 (04:28→15:55)
[2019-10-14] MEDS: INSULIN LISPRO 100 UNITS/ML, PEN SQ-INSULIN SCH ×4 (05:00→23:00)
[2019-10-14 07:31] LABS: BASOPHILS # (AUTO) 0.01 x10^3/uL (0-0.1); BASOPHILS % (AUTO) 0 % (0-1); EOSINOPHILS # (AUTO) 0.01 x10^3/uL (0-0.4); EOSINOPHILS % (AUTO) 0 % (1-7); LYMPHOCYTES % (AUTO) 7 % (22-44); MD NO; MEAN CORPUSCULAR HEMOGLOBIN 31.5 pg (27.5-34.5); MEAN CORPUSCULAR HGB CONC 33.4 g/dL (33.2-36.2); MEAN CORPUSCULAR VOLUME 94.2 fL (81-97); MEAN PLATELET VOLUME 7.4 fL (7.4-10.4); MONOCYTES # (AUTO) 0.16 x10^3/uL (0.2-0.8); MONOCYTES % (AUTO) 2 % (2-9); NEUTROPHILS # (AUTO) 6.63 x10^3/uL (1.8-6.8); NEUTROPHILS % (AUTO) 91 % (42-75); PLATELET COUNT 220 x10^3/uL (130-400); RED BLOOD COUNT 3.57 x10^6/uL (4.38-5.82); RED CELL DISTRIBUTION WIDTH 14.8 % (9.4-14.8)
[2019-10-14 07:43] LABS: CALCIUM 8.4 mg/dL (8.5-10.1)
[2019-10-14 07:47] LABS: ALANINE AMINOTRANSFERASE 77 U/L (12-78); ALKALINE PHOSPHATASE 112 U/L (45-117); BILIRUBIN,TOTAL 0.7 mg/dL (0.2-1.0); CREATININE 0.55 mg/dL (0.7-1.3); TOTAL PROTEIN 5.4 g/dL (6.4-8.2)
[2019-10-14 07:53] LABS: ANION GAP 5 mmol/L (5-15); CHLORIDE 97 mmol/L (98-107)
[2019-10-14] MEDS: ALPRazolam 1MG TAB PO SCH (09:00)
[2019-10-14 09:21] LABS: ANION GAP 4 mmol/L (5-15); CALCIUM 8.4 mg/dL (8.5-10.1); CHLORIDE 97 mmol/L (98-107); CREATININE 0.56 mg/dL (0.7-1.3)
[2019-10-14] MEDS: FAMOTIDINE 20 MG/2 ML IV SCH ×2 (09:23→21:31)
[2019-10-14] MEDS: POTASSIUM CHLORIDE 10% 40 MEQ/30 ML UDC PO SCH ×2 (09:24→21:32)
[2019-10-14] MEDS: SODIUM CHLORIDE FLUSH 10ML SYR IVF SCH ×2 (09:24→21:34)
[2019-10-14] MEDS: methylPREDNISolone SOD SUCC 40 MG/ML IVPush SCH (09:24)
[2019-10-14] MEDS: BUSPIRONE 10 MG TABLET PO SCH ×3 (09:24→21:31)
[2019-10-14] MEDS: AMIODARONE 200 MG TABLET PO SCH ×2 (09:24→21:31)
[2019-10-14] MEDS: INSULIN GLARGINE 100 UNITS/ML, PEN SQ-INSULIN SCH (09:31)
[2019-10-14] MEDS: CEFTRIAXONE PMX 1GM/50ML 50 ML IV SCH (14:44)
[2019-10-14] MEDS ORDERED: DEXMEDETOMIDINE 1,000 MCG in SODIUM CHLORIDE 0.9% 240 ML IV PRN (21:30)
[2019-10-15] MEDS: ENOXAPARIN 40 MG/0.4 ML SQ SCH ×2 (00:02→20:07)
[2019-10-15] MEDS: ACETAMINOPHEN 650 MG/20.3 ML UDC NG PRN ×2 (00:02→20:07)
[2019-10-15] MEDS: FENTANYL PF 100 MCG/2ML IVPush PRN (00:03)
[2019-10-15] MEDS: ALBUTEROL/IPRATROPIUM 2.5MG/0.5MG, 3 ML INLINE SCH ×6 (02:00→22:00)
[2019-10-15] MEDS ORDERED: ALBUMIN HUMAN 25% 100 ML IV ONE (02:30)
[2019-10-15 04:51] LABS: BASOPHILS # (AUTO) 0.01 x10^3/uL (0-0.1); BASOPHILS % (AUTO) 0 % (0-1); EOSINOPHILS # (AUTO) 0.02 x10^3/uL (0-0.4); EOSINOPHILS % (AUTO) 0 % (1-7); LYMPHOCYTES # (AUTO) 0.67 x10^3/uL (1-3.4); LYMPHOCYTES % (AUTO) 6 % (22-44); MD NO; MEAN CORPUSCULAR HEMOGLOBIN 31.3 pg (27.5-34.5); MEAN CORPUSCULAR HGB CONC 33.3 g/dL (33.2-36.2); MEAN CORPUSCULAR VOLUME 93.9 fL (81-97); MEAN PLATELET VOLUME 8.1 fL (7.4-10.4); MONOCYTES # (AUTO) 0.27 x10^3/uL (0.2-0.8); MONOCYTES % (AUTO) 2 % (2-9); NEUTROPHILS # (AUTO) 10.27 x10^3/uL (1.8-6.8); NEUTROPHILS % (AUTO) 91 % (42-75); PLATELET COUNT 186 x10^3/uL (130-400); RED CELL DISTRIBUTION WIDTH 14.9 % (9.4-14.8)
[2019-10-15] MEDS: INSULIN LISPRO 100 UNITS/ML, PEN SQ-INSULIN SCH ×2 (05:00→17:04)
[2019-10-15 05:08] LABS: ANION GAP 5 mmol/L (5-15); CALCIUM 8.5 mg/dL (8.5-10.1); CHLORIDE 97 mmol/L (98-107); CREATININE 0.59 mg/dL (0.7-1.3)
[2019-10-15] MEDS ORDERED: MIDODRINE 5 MG TABLET PO PRN (09:00)
[2019-10-15] MEDS: methylPREDNISolone SOD SUCC 40 MG/ML IVPush SCH (09:34)
[2019-10-15] MEDS: SODIUM CHLORIDE FLUSH 10ML SYR IVF SCH ×2 (09:34→20:10)
[2019-10-15] MEDS: POTASSIUM CHLORIDE 10% 40 MEQ/30 ML UDC PO SCH ×2 (09:35→20:09)
[2019-10-15] MEDS: FAMOTIDINE 20 MG/2 ML IV SCH ×2 (09:35→20:07)
[2019-10-15] MEDS: AMIODARONE 200 MG TABLET PO SCH ×2 (09:35→20:06)
[2019-10-15] MEDS: BUSPIRONE 10 MG TABLET PO SCH ×3 (09:35→20:07)
[2019-10-15] MEDS: PROPOFOL 100 ML IV PRN ×3 (09:37→21:10)
[2019-10-15] MEDS: INSULIN GLARGINE 100 UNITS/ML, PEN SQ-INSULIN SCH (09:38)
[2019-10-15] MEDS: CEFTRIAXONE PMX 1GM/50ML 50 ML IV SCH (15:51)
[2019-10-15] MEDS: BUDESONIDE 0.5 MG/2 ML INHA INH SCH (19:14)
[2019-10-16] MEDS: ALBUTEROL/IPRATROPIUM 2.5MG/0.5MG, 3 ML INLINE SCH ×6 (02:00→22:35)
[2019-10-16] MEDS: PROPOFOL 100 ML IV PRN ×3 (02:57→18:15)
[2019-10-16 04:28] LABS: BASOPHILS # (AUTO) 0.02 x10^3/uL (0-0.1); BASOPHILS % (AUTO) 0 % (0-1); EOSINOPHILS % (AUTO) 1 % (1-7); LYMPHOCYTES # (AUTO) 0.42 x10^3/uL (1-3.4); LYMPHOCYTES % (AUTO) 4 % (22-44); MD NO; MEAN CORPUSCULAR HEMOGLOBIN 31.2 pg (27.5-34.5); MEAN CORPUSCULAR HGB CONC 33.1 g/dL (33.2-36.2); MEAN CORPUSCULAR VOLUME 94.3 fL (81-97); MEAN PLATELET VOLUME 7.4 fL (7.4-10.4); MONOCYTES # (AUTO) 0.36 x10^3/uL (0.2-0.8); MONOCYTES % (AUTO) 3 % (2-9); NEUTROPHILS # (AUTO) 10.51 x10^3/uL (1.8-6.8); NEUTROPHILS % (AUTO) 92 % (42-75); PLATELET COUNT 318 x10^3/uL (130-400); RED BLOOD COUNT 3.46 x10^6/uL (4.38-5.82); RED CELL DISTRIBUTION WIDTH 15.1 % (9.4-14.8)
[2019-10-16 04:39] LABS: ANION GAP 2 mmol/L (5-15); CALCIUM 8.7 mg/dL (8.5-10.1); CHLORIDE 102 mmol/L (98-107); CREATININE 0.54 mg/dL (0.7-1.3)
[2019-10-16] MEDS: ACETAMINOPHEN 650 MG/20.3 ML UDC NG PRN (06:00)
[2019-10-16] MEDS: BUDESONIDE 0.5 MG/2 ML INHA INH SCH ×2 (06:30→18:40)
[2019-10-16] MEDS: FAMOTIDINE 20 MG/2 ML IV SCH ×2 (08:37→20:42)
[2019-10-16] MEDS: INSULIN LISPRO 100 UNITS/ML, PEN SQ-INSULIN SCH ×2 (08:37→16:36)
[2019-10-16] MEDS: methylPREDNISolone SOD SUCC 40 MG/ML IVPush SCH (08:37)
[2019-10-16] MEDS: AMIODARONE 200 MG TABLET PO SCH ×2 (08:38→20:42)
[2019-10-16] MEDS: BUSPIRONE 10 MG TABLET PO SCH ×3 (08:38→20:42)
[2019-10-16] MEDS: SODIUM CHLORIDE FLUSH 10ML SYR IVF SCH ×2 (09:00→20:42)
[2019-10-16] MEDS: INSULIN GLARGINE 100 UNITS/ML, PEN SQ-INSULIN SCH (09:01)
[2019-10-16] MEDS: ENOXAPARIN 40 MG/0.4 ML SQ SCH (20:42)
[2019-10-17] MEDS: PROPOFOL 100 ML IV PRN ×4 (00:06→21:32)
[2019-10-17] MEDS: ALBUTEROL/IPRATROPIUM 2.5MG/0.5MG, 3 ML INLINE SCH ×6 (02:45→22:11)
[2019-10-17 04:36] LABS: ANION GAP 3 mmol/L (5-15); CALCIUM 8.4 mg/dL (8.5-10.1); CHLORIDE 100 mmol/L (98-107)
[2019-10-17 04:37] LABS: CREATININE 0.54 mg/dL (0.7-1.3)
[2019-10-17 05:48] LABS: MD YES
[2019-10-17 05:49] LABS: MEAN CORPUSCULAR HEMOGLOBIN 32.4 pg (27.5-34.5); MEAN CORPUSCULAR HGB CONC 34.2 g/dL (33.2-36.2); MEAN CORPUSCULAR VOLUME 94.8 fL (81-97); MEAN PLATELET VOLUME 8.1 fL (7.4-10.4); PLATELET COUNT 491 x10^3/uL (130-400); RED CELL DISTRIBUTION WIDTH 15.5 % (9.4-14.8)
[2019-10-17 05:50] LABS: BANDS%(MANUAL) 1 % (0-7); LYMPH#(MANUAL) 0.69 x10^3/uL (1-3.4); LYMPHS% (MANUAL) 7 % (22-44); MONOS#(MANUAL) 0.29 x10^3/uL (0.3-2.7); MONOS% (MANUAL) 3 % (2-9); SEG#(MANUAL) 8.72 x10^3/uL (1.8-6.8); SEGS% (MANUAL) 89 % (42-75)
[2019-10-17 05:52] LABS: <PLATELET ESTIMATE> INCREASED; ANISOCYTOSIS 1+; GIANT PLATELETS 1+; LARGE PLATELETS 1+; POLYCHROMASIA 1+
[2019-10-17] MEDS: INSULIN LISPRO 100 UNITS/ML, PEN SQ-INSULIN SCH (07:47)
[2019-10-17] MEDS: SODIUM CHLORIDE FLUSH 10ML SYR IVF SCH ×2 (07:47→21:31)
[2019-10-17] MEDS: BUSPIRONE 10 MG TABLET PO SCH ×3 (07:49→21:31)
[2019-10-17] MEDS: FAMOTIDINE 20 MG/2 ML IV SCH ×2 (07:49→21:30)
[2019-10-17] MEDS: AMIODARONE 200 MG TABLET PO SCH ×2 (07:49→21:31)
[2019-10-17] MEDS: BUDESONIDE 0.5 MG/2 ML INHA INH SCH ×2 (09:00→18:26)
[2019-10-17] MEDS: FENTANYL PF 100 MCG/2ML IVPush PRN (16:38)
[2019-10-17] MEDS: ENOXAPARIN 40 MG/0.4 ML SQ SCH (21:31)
[2019-10-18] MEDS: ALBUTEROL/IPRATROPIUM 2.5MG/0.5MG, 3 ML INLINE SCH ×3 (02:39→10:00)
[2019-10-18] MEDS: PROPOFOL 100 ML IV PRN ×2 (03:09→05:50)
[2019-10-18 04:45] LABS: BASOPHILS # (AUTO) 0.01 x10^3/uL (0-0.1); BASOPHILS % (AUTO) 0 % (0-1); EOSINOPHILS # (AUTO) 0.02 x10^3/uL (0-0.4); EOSINOPHILS % (AUTO) 0 % (1-7); LYMPHOCYTES # (AUTO) 0.56 x10^3/uL (1-3.4); LYMPHOCYTES % (AUTO) 5 % (22-44); MD NO; MEAN CORPUSCULAR HEMOGLOBIN 31.6 pg (27.5-34.5); MEAN CORPUSCULAR HGB CONC 33.4 g/dL (33.2-36.2); MEAN CORPUSCULAR VOLUME 94.6 fL (81-97); MEAN PLATELET VOLUME 7.7 fL (7.4-10.4); MONOCYTES # (AUTO) 0.35 x10^3/uL (0.2-0.8); MONOCYTES % (AUTO) 3 % (2-9); NEUTROPHILS # (AUTO) 11.09 x10^3/uL (1.8-6.8); NEUTROPHILS % (AUTO) 92 % (42-75); PLATELET COUNT 353 x10^3/uL (130-400); RED BLOOD COUNT 3.27 x10^6/uL (4.38-5.82); RED CELL DISTRIBUTION WIDTH 15.2 % (9.4-14.8)
[2019-10-18 04:53] LABS: ANION GAP 6 mmol/L (5-15); CALCIUM 7.9 mg/dL (8.5-10.1); CHLORIDE 99 mmol/L (98-107); CREATININE 0.62 mg/dL (0.7-1.3)
[2019-10-18] MEDS: FAMOTIDINE 20 MG/2 ML IV SCH ×2 (07:34→21:08)
[2019-10-18] MEDS: SODIUM CHLORIDE FLUSH 10ML SYR IVF SCH ×2 (07:34→21:08)
[2019-10-18] MEDS: BUSPIRONE 10 MG TABLET PO SCH ×2 (07:34→15:56)
[2019-10-18] MEDS: AMIODARONE 200 MG TABLET PO SCH ×2 (07:35→21:07)
[2019-10-18] MEDS: LACTULOSE 20 GM/30 ML UDC NG PRN (07:38)
[2019-10-18] MEDS: BUDESONIDE 0.5 MG/2 ML INHA INH SCH ×2 (08:26→21:00)
[2019-10-18] MEDS: MEROPENEM 500 MG in SODIUM CHLORIDE 0.9% 100 ML IV SCH ×2 (09:49→17:10)
[2019-10-18] MEDS: GLYCOPYRROLATE 1 MG TABLET PO SCH ×3 (10:46→21:07)
[2019-10-18 10:47] LABS: CULTURE INDICATED? YES; MICROSCOPIC INDICATED
[2019-10-18] MEDS: ALBUTEROL/IPRATROPIUM 2.5MG/0.5MG, 3 ML NPPB SCH ×3 (14:10→19:51)
[2019-10-18] MEDS ORDERED: ETOMIDATE 40 MG/20 ML ONE (16:11)
[2019-10-18] MEDS: ENOXAPARIN 40 MG/0.4 ML SQ SCH (21:07)
[2019-10-18] MEDS: BUSPIRONE 10 MG TABLET PO PRN (21:07)
[2019-10-18] MEDS ORDERED: FENTANYL PF 100 MCG/2ML ONE (21:47)
[2019-10-18] MEDS ORDERED: PROPOFOL 100 ML IV ONE (21:57)
[2019-10-18] MEDS ORDERED: methylPREDNISolone SOD SUCC 40 MG/ML IV ONE (22:30)
[2019-10-19] MEDS: ALBUTEROL/IPRATROPIUM 2.5MG/0.5MG, 3 ML NPPB SCH ×6 (01:00→22:00)
[2019-10-19] MEDS: MEROPENEM 500 MG in SODIUM CHLORIDE 0.9% 100 ML IV SCH ×3 (01:35→18:17)
[2019-10-19] MEDS: PROPOFOL 100 ML IV PRN ×5 (01:35→22:24)
[2019-10-19 04:25] LABS: BASOPHILS # (AUTO) 0.01 x10^3/uL (0-0.1); BASOPHILS % (AUTO) 0 % (0-1); EOSINOPHILS # (AUTO) 0.01 x10^3/uL (0-0.4); EOSINOPHILS % (AUTO) 0 % (1-7); LYMPHOCYTES # (AUTO) 0.68 x10^3/uL (1-3.4); LYMPHOCYTES % (AUTO) 6 % (22-44); MD NO; MEAN CORPUSCULAR HEMOGLOBIN 31.5 pg (27.5-34.5); MEAN CORPUSCULAR HGB CONC 33.3 g/dL (33.2-36.2); MEAN CORPUSCULAR VOLUME 94.5 fL (81-97); MEAN PLATELET VOLUME 7.6 fL (7.4-10.4); MONOCYTES # (AUTO) 0.41 x10^3/uL (0.2-0.8); MONOCYTES % (AUTO) 4 % (2-9); NEUTROPHILS # (AUTO) 10.31 x10^3/uL (1.8-6.8); NEUTROPHILS % (AUTO) 90 % (42-75); PLATELET COUNT 395 x10^3/uL (130-400); RED BLOOD COUNT 3.12 x10^6/uL (4.38-5.82); RED CELL DISTRIBUTION WIDTH 15.1 % (9.4-14.8)
[2019-10-19 04:30] LABS: ANION GAP 3 mmol/L (5-15); CALCIUM 8.2 mg/dL (8.5-10.1); CHLORIDE 101 mmol/L (98-107); CREATININE 0.48 mg/dL (0.7-1.3)
[2019-10-19] MEDS: BUDESONIDE 0.5 MG/2 ML INHA INH SCH ×2 (06:00→19:50)
[2019-10-19] MEDS: FAMOTIDINE 20 MG/2 ML IV SCH ×2 (10:33→20:17)
[2019-10-19] MEDS: AMIODARONE 200 MG TABLET PO SCH ×2 (10:34→20:15)
[2019-10-19] MEDS: SODIUM CHLORIDE FLUSH 10ML SYR IVF SCH ×2 (10:36→20:15)
[2019-10-19] MEDS: ENOXAPARIN 40 MG/0.4 ML SQ SCH (20:16)
[2019-10-20] MEDS: MEROPENEM 500 MG in SODIUM CHLORIDE 0.9% 100 ML IV SCH (01:44)
[2019-10-20] MEDS: ALBUTEROL/IPRATROPIUM 2.5MG/0.5MG, 3 ML NPPB SCH ×6 (02:00→22:35)
[2019-10-20 03:55] LABS: BASOPHILS # (AUTO) 0.02 x10^3/uL (0-0.1); BASOPHILS % (AUTO) 0 % (0-1); EOSINOPHILS # (AUTO) 0.01 x10^3/uL (0-0.4); EOSINOPHILS % (AUTO) 0 % (1-7); LYMPHOCYTES % (AUTO) 8 % (22-44); MD NO; MEAN CORPUSCULAR HEMOGLOBIN 31.6 pg (27.5-34.5); MEAN CORPUSCULAR HGB CONC 33.3 g/dL (33.2-36.2); MEAN PLATELET VOLUME 7.7 fL (7.4-10.4); MONOCYTES # (AUTO) 0.33 x10^3/uL (0.2-0.8); MONOCYTES % (AUTO) 5 % (2-9); NEUTROPHILS # (AUTO) 5.45 x10^3/uL (1.8-6.8); NEUTROPHILS % (AUTO) 87 % (42-75); PLATELET COUNT 371 x10^3/uL (130-400); RED BLOOD COUNT 2.91 x10^6/uL (4.38-5.82); RED CELL DISTRIBUTION WIDTH 15.5 % (9.4-14.8)
[2019-10-20 04:00] LABS: ANION GAP 2 mmol/L (5-15); CALCIUM 7.8 mg/dL (8.5-10.1); CHLORIDE 102 mmol/L (98-107); CREATININE 0.48 mg/dL (0.7-1.3)
[2019-10-20] MEDS: BISACODYL 10 MG SUPP PR PRN (06:52)
[2019-10-20] MEDS: FAMOTIDINE 20 MG/2 ML IV SCH ×2 (08:38→20:07)
[2019-10-20] MEDS: AMIODARONE 200 MG TABLET PO SCH ×2 (08:38→20:07)
[2019-10-20] MEDS: SODIUM CHLORIDE FLUSH 10ML SYR IVF SCH ×2 (08:39→20:08)
[2019-10-20] MEDS: PROPOFOL 100 ML IV PRN ×3 (08:41→19:30)
[2019-10-20] MEDS: BUDESONIDE 0.5 MG/2 ML INHA INH SCH ×2 (09:00→18:50)
[2019-10-20] MEDS: MEROPENEM 1 GM in SODIUM CHLORIDE 0.9% 100 ML IV SCH ×2 (10:21→18:28)
[2019-10-20] MEDS: ACETAMINOPHEN 650 MG/20.3 ML UDC NG PRN (19:32)
[2019-10-20] MEDS: ENOXAPARIN 40 MG/0.4 ML SQ SCH (20:07)
[2019-10-21] MEDS: PROPOFOL 100 ML IV PRN ×4 (00:06→20:59)
[2019-10-21] MEDS: MEROPENEM 1 GM in SODIUM CHLORIDE 0.9% 100 ML IV SCH ×3 (01:13→17:36)
[2019-10-21] MEDS: ALBUTEROL/IPRATROPIUM 2.5MG/0.5MG, 3 ML NPPB SCH ×6 (02:30→22:15)
[2019-10-21] MEDS: AMIODARONE 200 MG TABLET PO SCH ×2 (08:55→20:22)
[2019-10-21] MEDS: FAMOTIDINE 20 MG/2 ML IV SCH ×2 (08:55→20:22)
[2019-10-21] MEDS: SODIUM CHLORIDE FLUSH 10ML SYR IVF SCH ×2 (08:56→20:22)
[2019-10-21] MEDS: BUDESONIDE 0.5 MG/2 ML INHA INH SCH ×2 (09:00→18:20)
[2019-10-21] MEDS ORDERED: MIDAZOLAM 1 MG/ML, 2ML IVPush ONE (11:00)
[2019-10-21] MEDS ORDERED: FENTANYL PF 100 MCG/2ML IVPush ONE (11:00)
[2019-10-21] MEDS ORDERED: VECURONIUM 10 MG ONE (11:04)
[2019-10-21] MEDS ORDERED: VECURONIUM 10 MG IVPush ONE (11:30)
[2019-10-21] MEDS ORDERED: MORPHINE SULFATE 4 MG/ML, 1ML ONE (20:08)
[2019-10-21] MEDS: ENOXAPARIN 40 MG/0.4 ML SQ SCH (20:22)
[2019-10-21] MEDS: MORPHINE SULFATE 4 MG/ML, 1ML IVPush PRN (20:24)
[2019-10-21] MEDS ORDERED: morphine SULFATE 10 MG/ML, 1ML IVPush PRN (20:30)
[2019-10-22] MEDS: MEROPENEM 1 GM in SODIUM CHLORIDE 0.9% 100 ML IV SCH ×3 (02:05→17:28)
[2019-10-22] MEDS: PROPOFOL 100 ML IV PRN ×4 (02:18→20:41)
[2019-10-22] MEDS: ALBUTEROL/IPRATROPIUM 2.5MG/0.5MG, 3 ML NPPB SCH ×6 (02:45→22:15)
[2019-10-22 04:10] VITALS: BP 103/60
[2019-10-22] MEDS: BUDESONIDE 0.5 MG/2 ML INHA INH SCH ×2 (06:20→18:15)
[2019-10-22 08:03] LABS: MEAN CORPUSCULAR HGB CONC 33.5 g/dL (33.2-36.2); MEAN CORPUSCULAR VOLUME 95.4 fL (81-97); MEAN PLATELET VOLUME 6.6 fL (7.4-10.4); PLATELET COUNT 361 x10^3/uL (130-400); RED BLOOD COUNT 2.99 x10^6/uL (4.38-5.82); RED CELL DISTRIBUTION WIDTH 15.3 % (9.4-14.8)
[2019-10-22 08:12] LABS: ANION GAP 5 mmol/L (5-15); CALCIUM 8.1 mg/dL (8.5-10.1); CHLORIDE 102 mmol/L (98-107); CREATININE 0.39 mg/dL (0.7-1.3)
[2019-10-22 08:30] LABS: BASOPHILS # (AUTO) 0.03 x10^3/uL (0-0.1); BASOPHILS % (AUTO) 0 % (0-1); EOSINOPHILS % (AUTO) 0 % (1-7); LYMPHOCYTES # (AUTO) 0.88 x10^3/uL (1-3.4); LYMPHOCYTES % (AUTO) 12 % (22-44); MD SCAN; MONOCYTES # (AUTO) 0.39 x10^3/uL (0.2-0.8); MONOCYTES % (AUTO) 5 % (2-9); NEUTROPHILS # (AUTO) 6.29 x10^3/uL (1.8-6.8); NEUTROPHILS % (AUTO) 83 % (42-75)
[2019-10-22] MEDS: AMIODARONE 200 MG TABLET PO SCH ×2 (08:51→20:41)
[2019-10-22] MEDS: FAMOTIDINE 20 MG/2 ML IV SCH ×2 (08:52→20:40)
[2019-10-22] MEDS: SODIUM CHLORIDE FLUSH 10ML SYR IVF SCH ×2 (08:52→20:40)
[2019-10-22] MEDS: MORPHINE SULFATE 4 MG/ML, 1ML IVPush PRN ×2 (12:15→16:24)
[2019-10-22] MEDS: ENOXAPARIN 40 MG/0.4 ML SQ SCH (20:41)
[2019-10-23] MEDS: MEROPENEM 1 GM in SODIUM CHLORIDE 0.9% 100 ML IV SCH ×3 (01:27→16:54)
[2019-10-23] MEDS: PROPOFOL 100 ML IV PRN ×4 (02:21→23:13)
[2019-10-23] MEDS: MORPHINE SULFATE 4 MG/ML, 1ML IVPush PRN ×2 (02:22→11:08)
[2019-10-23] MEDS: ALBUTEROL/IPRATROPIUM 2.5MG/0.5MG, 3 ML NPPB SCH ×5 (03:00→22:45)
[2019-10-23] MEDS: BUDESONIDE 0.5 MG/2 ML INHA INH SCH ×2 (07:20→18:35)
[2019-10-23] MEDS: FAMOTIDINE 20 MG/2 ML IV SCH ×2 (08:17→21:49)
[2019-10-23] MEDS: AMIODARONE 200 MG TABLET PO SCH ×2 (08:17→21:49)
[2019-10-23] MEDS: SODIUM CHLORIDE FLUSH 10ML SYR IVF SCH ×2 (08:18→21:50)
[2019-10-23] MEDS: ENOXAPARIN 40 MG/0.4 ML SQ SCH (21:50)
[2019-10-24] MEDS: MEROPENEM 1 GM in SODIUM CHLORIDE 0.9% 100 ML IV SCH ×3 (01:37→18:15)
[2019-10-24] MEDS: MORPHINE SULFATE 4 MG/ML, 1ML IVPush PRN (01:38)
[2019-10-24] MEDS: PROPOFOL 100 ML IV PRN ×5 (03:01→23:30)
[2019-10-24] MEDS: ALBUTEROL/IPRATROPIUM 2.5MG/0.5MG, 3 ML NPPB SCH ×6 (03:15→22:40)
[2019-10-24] MEDS ORDERED: PIPERONYL BUTOXIDE/PYRETHRINS SHAMPOO TP SCH (03:30)
[2019-10-24] MEDS ORDERED: PERMETHRIN CRM 5%, 60GM TP SCH (05:30)
[2019-10-24] MEDS: BUDESONIDE 0.5 MG/2 ML INHA INH SCH ×2 (07:15→18:50)
[2019-10-24] MEDS: FAMOTIDINE 20 MG/2 ML IV SCH ×2 (08:04→20:56)
[2019-10-24] MEDS: AMIODARONE 200 MG TABLET PO SCH ×2 (08:04→20:57)
[2019-10-24] MEDS: SODIUM CHLORIDE FLUSH 10ML SYR IVF SCH ×2 (08:05→20:57)
[2019-10-24] MEDS: ENOXAPARIN 40 MG/0.4 ML SQ SCH (20:59)
[2019-10-25] MEDS: MEROPENEM 1 GM in SODIUM CHLORIDE 0.9% 100 ML IV SCH ×3 (01:23→18:39)
[2019-10-25] MEDS: ALBUTEROL/IPRATROPIUM 2.5MG/0.5MG, 3 ML NPPB SCH ×6 (02:15→23:30)
[2019-10-25] MEDS: PROPOFOL 100 ML IV PRN (04:06)
[2019-10-25] MEDS: BUDESONIDE 0.5 MG/2 ML INHA INH SCH ×2 (06:00→19:15)
[2019-10-25] MEDS ORDERED: MIDAZOLAM 1 MG/ML, 5ML ONE ×2 (06:58)
[2019-10-25] MEDS ORDERED: FENTANYL PF 100 MCG/2ML ONE (06:58)
[2019-10-25 08:18] LABS: MEAN CORPUSCULAR HEMOGLOBIN 31.5 pg (27.5-34.5); MEAN CORPUSCULAR HGB CONC 33.1 g/dL (33.2-36.2); MEAN CORPUSCULAR VOLUME 95.1 fL (81-97); MEAN PLATELET VOLUME 6.5 fL (7.4-10.4); PLATELET COUNT 377 x10^3/uL (130-400); RED BLOOD COUNT 2.93 x10^6/uL (4.38-5.82); RED CELL DISTRIBUTION WIDTH 15.5 % (9.4-14.8)
[2019-10-25 08:28] LABS: ALANINE AMINOTRANSFERASE 33 U/L (12-78); ANION GAP 4 mmol/L (5-15); CHLORIDE 102 mmol/L (98-107); CREATININE 0.36 mg/dL (0.7-1.3)
[2019-10-25 08:30] LABS: ALKALINE PHOSPHATASE 310 U/L (45-117); BILIRUBIN,TOTAL 0.4 mg/dL (0.2-1.0); TOTAL PROTEIN 5.3 g/dL (6.4-8.2)
[2019-10-25 08:36] LABS: BASOPHILS # (AUTO) 0.01 x10^3/uL (0-0.1); BASOPHILS % (AUTO) 0 % (0-1); EOSINOPHILS # (AUTO) 0.06 x10^3/uL (0-0.4); EOSINOPHILS % (AUTO) 1 % (1-7); LYMPHOCYTES # (AUTO) 0.62 x10^3/uL (1-3.4); LYMPHOCYTES % (AUTO) 11 % (22-44); MD SCAN; MONOCYTES # (AUTO) 0.36 x10^3/uL (0.2-0.8); MONOCYTES % (AUTO) 6 % (2-9); NEUTROPHILS # (AUTO) 4.51 x10^3/uL (1.8-6.8); NEUTROPHILS % (AUTO) 81 % (42-75)
[2019-10-25] MEDS: FAMOTIDINE 20 MG/2 ML IV SCH ×2 (08:48→21:34)
[2019-10-25] MEDS: AMIODARONE 200 MG TABLET PO SCH ×2 (08:49→21:34)
[2019-10-25] MEDS: SODIUM CHLORIDE FLUSH 10ML SYR IVF SCH ×2 (08:49→21:36)
[2019-10-25] MEDS: HYDROcodone/APAP 7.5-325MG/15ML UDC PO PRN ×3 (11:20→21:34)
[2019-10-25] MEDS: BUSPIRONE 10 MG TABLET PO PRN (13:29)
[2019-10-25] MEDS: ENOXAPARIN 40 MG/0.4 ML SQ SCH (21:35)
[2019-10-26] MEDS: MEROPENEM 1 GM in SODIUM CHLORIDE 0.9% 100 ML IV SCH ×3 (01:56→17:21)
[2019-10-26] MEDS: BUSPIRONE 10 MG TABLET PO PRN (02:30)
[2019-10-26] MEDS: HYDROcodone/APAP 7.5-325MG/15ML UDC PO PRN ×4 (02:30→21:08)
[2019-10-26] MEDS: ALBUTEROL/IPRATROPIUM 2.5MG/0.5MG, 3 ML NPPB SCH ×6 (02:45→22:31)
[2019-10-26] MEDS: BUDESONIDE 0.5 MG/2 ML INHA INH SCH ×2 (06:00→22:31)
[2019-10-26] MEDS: LACTULOSE 20 GM/30 ML UDC NG PRN (08:38)
[2019-10-26] MEDS: FAMOTIDINE 20 MG/2 ML IV SCH ×2 (08:38→21:08)
[2019-10-26] MEDS: AMIODARONE 200 MG TABLET PO SCH ×2 (08:38→21:07)
[2019-10-26] MEDS: SODIUM CHLORIDE FLUSH 10ML SYR IVF SCH ×2 (08:41→21:09)
[2019-10-26] MEDS: BUSPIRONE 10 MG TABLET PO SCH ×3 (09:16→21:07)
--- NOTE | 2019-10-26 10:17 | NUR ---
10/26 TF GOAL: JEVITY 1.2 @ 70ML/HR
[2019-10-26] MEDS: ENOXAPARIN 40 MG/0.4 ML SQ SCH (21:08)
[2019-10-27] MEDS: ALBUTEROL/IPRATROPIUM 2.5MG/0.5MG, 3 ML NPPB SCH ×6 (02:00→22:00)
[2019-10-27] MEDS: MEROPENEM 1 GM in SODIUM CHLORIDE 0.9% 100 ML IV SCH ×3 (02:30→16:35)
[2019-10-27 04:33] LABS: BASOPHILS # (AUTO) 0.01 x10^3/uL (0-0.1); BASOPHILS % (AUTO) 0 % (0-1); EOSINOPHILS % (AUTO) 0 % (1-7); LYMPHOCYTES % (AUTO) 10 % (22-44); MD NO; MEAN CORPUSCULAR HEMOGLOBIN 31.4 pg (27.5-34.5); MEAN CORPUSCULAR HGB CONC 33.2 g/dL (33.2-36.2); MEAN CORPUSCULAR VOLUME 94.6 fL (81-97); MONOCYTES # (AUTO) 0.37 x10^3/uL (0.2-0.8); MONOCYTES % (AUTO) 6 % (2-9); NEUTROPHILS # (AUTO) 4.84 x10^3/uL (1.8-6.8); NEUTROPHILS % (AUTO) 83 % (42-75); PLATELET COUNT 317 x10^3/uL (130-400); RED BLOOD COUNT 2.95 x10^6/uL (4.38-5.82); RED CELL DISTRIBUTION WIDTH 15.9 % (9.4-14.8)
[2019-10-27 04:43] LABS: ANION GAP 4 mmol/L (5-15); CALCIUM 7.9 mg/dL (8.5-10.1); CHLORIDE 102 mmol/L (98-107); CREATININE 0.34 mg/dL (0.7-1.3)
[2019-10-27] MEDS: HYDROcodone/APAP 7.5-325MG/15ML UDC PO PRN ×4 (04:51→21:56)
[2019-10-27] MEDS: FAMOTIDINE 20 MG/2 ML IV SCH ×2 (08:08→21:55)
[2019-10-27] MEDS: BUSPIRONE 10 MG TABLET PO SCH ×3 (08:08→21:55)
[2019-10-27] MEDS: AMIODARONE 200 MG TABLET PO SCH ×2 (08:08→21:55)
[2019-10-27] MEDS: SODIUM CHLORIDE FLUSH 10ML SYR IVF SCH ×2 (08:08→22:03)
[2019-10-27] MEDS: ACETAMINOPHEN 650 MG/20.3 ML UDC NG PRN (08:15)
[2019-10-27] MEDS: BUDESONIDE 0.5 MG/2 ML INHA INH SCH ×2 (09:00→21:00)
[2019-10-27] MEDS: ENOXAPARIN 40 MG/0.4 ML SQ SCH (21:56)
[2019-10-28] MEDS: MEROPENEM 1 GM in SODIUM CHLORIDE 0.9% 100 ML IV SCH ×3 (02:30→17:30)
[2019-10-28] MEDS: ALBUTEROL/IPRATROPIUM 2.5MG/0.5MG, 3 ML NPPB SCH ×6 (02:42→22:00)
[2019-10-28] MEDS: HYDROcodone/APAP 7.5-325MG/15ML UDC PO PRN ×3 (04:31→18:22)
[2019-10-28] MEDS: SODIUM CHLORIDE FLUSH 10ML SYR IVF SCH ×2 (08:44→20:19)
[2019-10-28] MEDS: AMIODARONE 200 MG TABLET PO SCH ×2 (08:44→20:18)
[2019-10-28] MEDS: BUSPIRONE 10 MG TABLET PO SCH ×3 (08:44→20:18)
[2019-10-28] MEDS: FAMOTIDINE 20 MG/2 ML IV SCH ×2 (08:44→20:19)
[2019-10-28] MEDS: BUDESONIDE 0.5 MG/2 ML INHA INH SCH ×2 (09:00→21:00)
[2019-10-28] MEDS: LACTULOSE 20 GM/30 ML UDC NG PRN (09:23)
[2019-10-28] MEDS: METHYLNALTREXONE 12 MG/0.6 ML SYR SQ SCH (09:23)
[2019-10-28] MEDS ORDERED: BISACODYL 10 MG SUPP PR PRN (09:30)
[2019-10-28] MEDS: ENOXAPARIN 40 MG/0.4 ML SQ SCH (20:19)
[2019-10-29] MEDS: HYDROcodone/APAP 7.5-325MG/15ML UDC PO PRN ×4 (00:30→23:41)
[2019-10-29] MEDS: MEROPENEM 1 GM in SODIUM CHLORIDE 0.9% 100 ML IV SCH ×3 (01:37→17:28)
[2019-10-29] MEDS: ALBUTEROL/IPRATROPIUM 2.5MG/0.5MG, 3 ML NPPB SCH ×6 (02:00→22:00)
[2019-10-29 04:19] LABS: BASOPHILS # (AUTO) 0.02 x10^3/uL (0-0.1); BASOPHILS % (AUTO) 0 % (0-1); EOSINOPHILS % (AUTO) 0 % (1-7); LYMPHOCYTES % (AUTO) 9 % (22-44); MD NO; MEAN CORPUSCULAR HEMOGLOBIN 31.4 pg (27.5-34.5); MEAN CORPUSCULAR HGB CONC 33.1 g/dL (33.2-36.2); MEAN PLATELET VOLUME 6.6 fL (7.4-10.4); MONOCYTES # (AUTO) 0.56 x10^3/uL (0.2-0.8); MONOCYTES % (AUTO) 8 % (2-9); NEUTROPHILS # (AUTO) 5.51 x10^3/uL (1.8-6.8); NEUTROPHILS % (AUTO) 83 % (42-75); PLATELET COUNT 267 x10^3/uL (130-400); RED BLOOD COUNT 2.94 x10^6/uL (4.38-5.82); RED CELL DISTRIBUTION WIDTH 15.4 % (9.4-14.8)
[2019-10-29 04:27] LABS: ANION GAP 3 mmol/L (5-15); CALCIUM 7.9 mg/dL (8.5-10.1); CHLORIDE 101 mmol/L (98-107); CREATININE 0.35 mg/dL (0.7-1.3)
[2019-10-29] MEDS: BUDESONIDE 0.5 MG/2 ML INHA INH SCH ×2 (06:25→18:56)
[2019-10-29] MEDS: ACETAMINOPHEN 650 MG/20.3 ML UDC NG PRN (06:40)
[2019-10-29] MEDS: FAMOTIDINE 20 MG/2 ML IV SCH ×2 (08:25→21:27)
[2019-10-29] MEDS: AMIODARONE 200 MG TABLET PO SCH ×2 (08:29→21:27)
[2019-10-29] MEDS: BUSPIRONE 10 MG TABLET PO SCH ×3 (08:30→21:27)
[2019-10-29] MEDS: SODIUM CHLORIDE FLUSH 10ML SYR IVF SCH ×2 (08:30→21:26)
[2019-10-29] MEDS: MORPHINE SULFATE 4 MG/ML, 1ML IVPush PRN (08:35)
[2019-10-29] MEDS: BISACODYL 10 MG SUPP PR PRN (11:13)
[2019-10-29] MEDS: ENOXAPARIN 40 MG/0.4 ML SQ SCH (21:27)
[2019-10-30] MEDS: MEROPENEM 1 GM in SODIUM CHLORIDE 0.9% 100 ML IV SCH ×4 (01:52→18:05)
[2019-10-30] MEDS: ALBUTEROL/IPRATROPIUM 2.5MG/0.5MG, 3 ML NPPB SCH ×6 (02:00→22:32)
[2019-10-30 04:38] LABS: BASOPHILS # (AUTO) 0.02 x10^3/uL (0-0.1); BASOPHILS % (AUTO) 0 % (0-1); EOSINOPHILS # (AUTO) 0.06 x10^3/uL (0-0.4); EOSINOPHILS % (AUTO) 1 % (1-7); LYMPHOCYTES # (AUTO) 0.63 x10^3/uL (1-3.4); LYMPHOCYTES % (AUTO) 10 % (22-44); MD NO; MEAN CORPUSCULAR HEMOGLOBIN 31.3 pg (27.5-34.5); MEAN CORPUSCULAR HGB CONC 33.3 g/dL (33.2-36.2); MEAN PLATELET VOLUME 7.1 fL (7.4-10.4); MONOCYTES % (AUTO) 8 % (2-9); NEUTROPHILS # (AUTO) 5.18 x10^3/uL (1.8-6.8); NEUTROPHILS % (AUTO) 81 % (42-75); PLATELET COUNT 213 x10^3/uL (130-400); RED BLOOD COUNT 2.81 x10^6/uL (4.38-5.82); RED CELL DISTRIBUTION WIDTH 15.5 % (9.4-14.8)
[2019-10-30 04:52] LABS: ALANINE AMINOTRANSFERASE 23 U/L (12-78); ANION GAP 2 mmol/L (5-15); CALCIUM 8.2 mg/dL (8.5-10.1); CHLORIDE 100 mmol/L (98-107); CREATININE 0.32 mg/dL (0.7-1.3)
[2019-10-30 04:54] LABS: ALKALINE PHOSPHATASE 280 U/L (45-117); BILIRUBIN,TOTAL 0.7 mg/dL (0.2-1.0); TOTAL PROTEIN 5.4 g/dL (6.4-8.2)
[2019-10-30] MEDS: BUDESONIDE 0.5 MG/2 ML INHA INH SCH ×2 (06:00→18:36)
[2019-10-30] MEDS: HYDROcodone/APAP 7.5-325MG/15ML UDC PO PRN ×4 (06:35→21:31)
[2019-10-30] MEDS ORDERED: AcetaZOLAMIDE INJ 500 MG IVPush ONE (08:45)
[2019-10-30] MEDS: BUSPIRONE 10 MG TABLET PO SCH ×3 (09:12→21:34)
[2019-10-30] MEDS: AMIODARONE 200 MG TABLET PO SCH (09:12)
[2019-10-30] MEDS: SODIUM CHLORIDE FLUSH 10ML SYR IVF SCH ×2 (09:42→21:35)
[2019-10-30] MEDS: METHYLNALTREXONE 12 MG/0.6 ML SYR SQ SCH (12:08)
[2019-10-30] MEDS: AcetaZOLAMIDE INJ 500 MG IVPush SCH (18:05)
[2019-10-30] MEDS: ENOXAPARIN 40 MG/0.4 ML SQ SCH (21:29)
[2019-10-31] MEDS: ALBUTEROL/IPRATROPIUM 2.5MG/0.5MG, 3 ML NPPB SCH ×6 (02:04→22:22)
[2019-10-31] MEDS: MEROPENEM 1 GM in SODIUM CHLORIDE 0.9% 100 ML IV SCH ×3 (02:09→17:26)
[2019-10-31] MEDS: HYDROcodone/APAP 7.5-325MG/15ML UDC PO PRN ×5 (02:10→21:31)
[2019-10-31 04:40] LABS: BASOPHILS # (AUTO) 0.04 x10^3/uL (0-0.1); BASOPHILS % (AUTO) 1 % (0-1); EOSINOPHILS # (AUTO) 0.09 x10^3/uL (0-0.4); EOSINOPHILS % (AUTO) 2 % (1-7); LYMPHOCYTES # (AUTO) 0.77 x10^3/uL (1-3.4); LYMPHOCYTES % (AUTO) 14 % (22-44); MD NO; MEAN CORPUSCULAR HEMOGLOBIN 31.1 pg (27.5-34.5); MEAN CORPUSCULAR HGB CONC 32.7 g/dL (33.2-36.2); MEAN CORPUSCULAR VOLUME 95.3 fL (81-97); MONOCYTES # (AUTO) 0.49 x10^3/uL (0.2-0.8); MONOCYTES % (AUTO) 9 % (2-9); NEUTROPHILS # (AUTO) 4.18 x10^3/uL (1.8-6.8); NEUTROPHILS % (AUTO) 75 % (42-75); PLATELET COUNT 245 x10^3/uL (130-400); RED CELL DISTRIBUTION WIDTH 15.9 % (9.4-14.8)
[2019-10-31 04:48] LABS: CALCIUM 8.3 mg/dL (8.5-10.1); CHLORIDE 103 mmol/L (98-107); CREATININE 0.37 mg/dL (0.7-1.3)
[2019-10-31 04:55] LABS: ANION GAP 4 mmol/L (5-15)
[2019-10-31] MEDS: BUDESONIDE 0.5 MG/2 ML INHA INH SCH ×2 (06:00→18:56)
[2019-10-31] MEDS ORDERED: PIPERONYL BUTOXIDE/PYRETHRINS SHAMPOO TP ONE (06:00)
[2019-10-31] MEDS ORDERED: PROPOFOL 100 ML IV PRN (07:30)
[2019-10-31] MEDS: AMIODARONE 200 MG TABLET PO SCH (07:51)
[2019-10-31] MEDS: BUSPIRONE 10 MG TABLET PO SCH ×3 (07:51→20:45)
[2019-10-31] MEDS: SODIUM CHLORIDE FLUSH 10ML SYR IVF SCH ×2 (07:51→20:46)
[2019-10-31] MEDS: AcetaZOLAMIDE INJ 500 MG IVPush SCH ×2 (07:51→17:26)
[2019-10-31] MEDS ORDERED: DEXMEDETOMIDINE 400 MCG in SODIUM CHLORIDE 0.9% 96 ML IV PRN (14:30)
[2019-10-31] MEDS: ENOXAPARIN 40 MG/0.4 ML SQ SCH (20:45)
[2019-11-01] MEDS: MEROPENEM 1 GM in SODIUM CHLORIDE 0.9% 100 ML IV SCH ×3 (01:31→17:30)
[2019-11-01] MEDS: HYDROcodone/APAP 7.5-325MG/15ML UDC PO PRN ×5 (01:33→20:57)
[2019-11-01] MEDS: ALBUTEROL/IPRATROPIUM 2.5MG/0.5MG, 3 ML NPPB SCH ×6 (02:48→22:55)
[2019-11-01 04:48] LABS: BASOPHILS # (AUTO) 0.04 x10^3/uL (0-0.1); BASOPHILS % (AUTO) 1 % (0-1); EOSINOPHILS # (AUTO) 0.11 x10^3/uL (0-0.4); EOSINOPHILS % (AUTO) 2 % (1-7); LYMPHOCYTES # (AUTO) 0.66 x10^3/uL (1-3.4); LYMPHOCYTES % (AUTO) 12 % (22-44); MD NO; MEAN CORPUSCULAR HEMOGLOBIN 31.3 pg (27.5-34.5); MEAN CORPUSCULAR HGB CONC 32.6 g/dL (33.2-36.2); MEAN CORPUSCULAR VOLUME 95.9 fL (81-97); MEAN PLATELET VOLUME 6.9 fL (7.4-10.4); MONOCYTES # (AUTO) 0.54 x10^3/uL (0.2-0.8); MONOCYTES % (AUTO) 10 % (2-9); NEUTROPHILS # (AUTO) 4.31 x10^3/uL (1.8-6.8); NEUTROPHILS % (AUTO) 76 % (42-75); PLATELET COUNT 268 x10^3/uL (130-400); RED BLOOD COUNT 2.91 x10^6/uL (4.38-5.82); RED CELL DISTRIBUTION WIDTH 15.7 % (9.4-14.8)
[2019-11-01 05:03] LABS: CALCIUM 8.3 mg/dL (8.5-10.1); CHLORIDE 103 mmol/L (98-107); CREATININE 0.37 mg/dL (0.7-1.3)
[2019-11-01 05:19] LABS: ANION GAP 3 mmol/L (5-15)
[2019-11-01] MEDS ORDERED: AcetaZOLAMIDE INJ 500 MG IVPush ONE (09:00)
[2019-11-01] MEDS: SODIUM CHLORIDE FLUSH 10ML SYR IVF SCH ×2 (09:00→20:56)
[2019-11-01] MEDS: BUSPIRONE 10 MG TABLET PO SCH ×3 (09:39→20:56)
[2019-11-01] MEDS: QUETIAPINE 25MG TABLET PO SCH ×2 (09:39→20:56)
[2019-11-01] MEDS: AMIODARONE 200 MG TABLET PO SCH (09:40)
[2019-11-01] MEDS: METHYLNALTREXONE 12 MG/0.6 ML SYR SQ SCH (09:42)
[2019-11-01] MEDS: BUDESONIDE 0.5 MG/2 ML INHA INH SCH ×2 (10:30→19:51)
[2019-11-01] MEDS ORDERED: HALOPERIDOL 5 MG/ML IM PRN (11:00)
[2019-11-01] MEDS: ENOXAPARIN 40 MG/0.4 ML SQ SCH (20:57)
[2019-11-02] MEDS: MEROPENEM 1 GM in SODIUM CHLORIDE 0.9% 100 ML IV SCH ×3 (01:41→16:47)
[2019-11-02] MEDS: ALBUTEROL/IPRATROPIUM 2.5MG/0.5MG, 3 ML NPPB SCH ×6 (02:11→23:00)
[2019-11-02 04:58] LABS: BASOPHILS # (AUTO) 0.02 x10^3/uL (0-0.1); BASOPHILS % (AUTO) 1 % (0-1); EOSINOPHILS % (AUTO) 0 % (1-7); LYMPHOCYTES # (AUTO) 0.88 x10^3/uL (1-3.4); LYMPHOCYTES % (AUTO) 19 % (22-44); MD NO; MEAN CORPUSCULAR HEMOGLOBIN 31.3 pg (27.5-34.5); MEAN CORPUSCULAR HGB CONC 32.8 g/dL (33.2-36.2); MEAN CORPUSCULAR VOLUME 95.5 fL (81-97); MEAN PLATELET VOLUME 6.9 fL (7.4-10.4); MONOCYTES # (AUTO) 0.49 x10^3/uL (0.2-0.8); MONOCYTES % (AUTO) 11 % (2-9); NEUTROPHILS # (AUTO) 3.28 x10^3/uL (1.8-6.8); NEUTROPHILS % (AUTO) 70 % (42-75); PLATELET COUNT 267 x10^3/uL (130-400); RED BLOOD COUNT 2.82 x10^6/uL (4.38-5.82); RED CELL DISTRIBUTION WIDTH 15.7 % (9.4-14.8)
[2019-11-02 05:09] LABS: ANION GAP 4 mmol/L (5-15); CALCIUM 8.2 mg/dL (8.5-10.1); CHLORIDE 103 mmol/L (98-107); CREATININE 0.43 mg/dL (0.7-1.3)
[2019-11-02] MEDS: BUDESONIDE 0.5 MG/2 ML INHA INH SCH ×2 (06:35→21:00)
[2019-11-02] MEDS: AMIODARONE 200 MG TABLET PO SCH (08:34)
[2019-11-02] MEDS: BUSPIRONE 10 MG TABLET PO SCH ×3 (08:34→20:00)
[2019-11-02] MEDS: SODIUM CHLORIDE FLUSH 10ML SYR IVF SCH ×2 (08:34→20:44)
[2019-11-02] MEDS: QUETIAPINE 25MG TABLET PO SCH ×2 (08:34→20:00)
[2019-11-02] MEDS: HYDROcodone/APAP 7.5-325MG/15ML UDC PO PRN ×3 (14:41→23:49)
[2019-11-02] MEDS: ENOXAPARIN 40 MG/0.4 ML SQ SCH (19:59)
[2019-11-02] MEDS ORDERED: ALBUMIN HUMAN 25% 100 ML IV PRN (22:30)
[2019-11-02] MEDS ORDERED: SODIUM CHLORIDE 0.9%, 250ML IVBOLUS ONE (22:30)
[2019-11-03] MEDS: MEROPENEM 1 GM in SODIUM CHLORIDE 0.9% 100 ML IV SCH ×3 (01:25→18:27)
[2019-11-03] MEDS: ALBUTEROL/IPRATROPIUM 2.5MG/0.5MG, 3 ML NPPB SCH ×6 (03:00→23:00)
[2019-11-03] MEDS: BUDESONIDE 0.5 MG/2 ML INHA INH SCH ×2 (07:20→21:00)
[2019-11-03] MEDS: QUETIAPINE 25MG TABLET PO SCH ×2 (08:37→20:49)
[2019-11-03] MEDS: BUSPIRONE 10 MG TABLET PO SCH ×3 (08:37→20:49)
[2019-11-03] MEDS: AMIODARONE 200 MG TABLET PO SCH (08:37)
[2019-11-03] MEDS: HYDROcodone/APAP 7.5-325MG/15ML UDC PO PRN ×3 (08:38→22:39)
[2019-11-03] MEDS ORDERED: DOCUSATE 100 MG CAPSULE PO SCH (09:24)
[2019-11-03] MEDS ORDERED: METHYLNALTREXONE 12 MG/0.6 ML SYR SQ PRN (09:30)
[2019-11-03] MEDS: SODIUM CHLORIDE FLUSH 10ML SYR IVF SCH ×2 (10:01→20:51)
[2019-11-03] MEDS: DOCUSATE 50 MG/5 ML, 10ML UDC PO SCH (10:01)
[2019-11-03] MEDS: ALPRazolam 1MG TAB PO PRN ×3 (11:01→22:21)
[2019-11-03] MEDS: ENOXAPARIN 40 MG/0.4 ML SQ SCH (20:50)
[2019-11-04] MEDS: ALBUTEROL/IPRATROPIUM 2.5MG/0.5MG, 3 ML NPPB SCH ×6 (03:00→23:00)
[2019-11-04] MEDS: HYDROcodone/APAP 7.5-325MG/15ML UDC PO PRN ×4 (04:50→22:23)
[2019-11-04] MEDS: ALPRazolam 1MG TAB PO PRN ×3 (04:50→17:51)
[2019-11-04] MEDS: BUDESONIDE 0.5 MG/2 ML INHA INH SCH ×2 (06:40→21:00)
[2019-11-04] MEDS: MEROPENEM 1 GM in SODIUM CHLORIDE 0.9% 100 ML IV SCH ×2 (08:11→16:27)
[2019-11-04] MEDS: AMIODARONE 200 MG TABLET PO SCH (09:54)
[2019-11-04] MEDS: QUETIAPINE 25MG TABLET PO SCH ×2 (09:54→22:24)
[2019-11-04] MEDS: BUSPIRONE 10 MG TABLET PO SCH ×3 (09:54→22:24)
[2019-11-04] MEDS: DOCUSATE 50 MG/5 ML, 10ML UDC PO SCH (09:54)
[2019-11-04] MEDS: SODIUM CHLORIDE FLUSH 10ML SYR IVF SCH ×2 (09:55→22:28)
[2019-11-04 10:22] LABS: BASOPHILS # (AUTO) 0.01 x10^3/uL (0-0.1); BASOPHILS % (AUTO) 0 % (0-1); EOSINOPHILS # (AUTO) 0.06 x10^3/uL (0-0.4); EOSINOPHILS % (AUTO) 2 % (1-7); LYMPHOCYTES # (AUTO) 0.57 x10^3/uL (1-3.4); LYMPHOCYTES % (AUTO) 13 % (22-44); MD NO; MEAN CORPUSCULAR HGB CONC 32.4 g/dL (33.2-36.2); MEAN CORPUSCULAR VOLUME 95.7 fL (81-97); MEAN PLATELET VOLUME 6.6 fL (7.4-10.4); MONOCYTES # (AUTO) 0.44 x10^3/uL (0.2-0.8); MONOCYTES % (AUTO) 10 % (2-9); NEUTROPHILS # (AUTO) 3.26 x10^3/uL (1.8-6.8); NEUTROPHILS % (AUTO) 75 % (42-75); PLATELET COUNT 299 x10^3/uL (130-400); RED BLOOD COUNT 2.89 x10^6/uL (4.38-5.82); RED CELL DISTRIBUTION WIDTH 15.2 % (9.4-14.8)
[2019-11-04 10:35] LABS: ALBUMIN 2.1 g/dL (3.4-5.0); CALCIUM 8.3 mg/dL (8.5-10.1)
[2019-11-04 10:40] LABS: ALANINE AMINOTRANSFERASE 21 U/L (12-78); ALKALINE PHOSPHATASE 246 U/L (45-117); BILIRUBIN,TOTAL 0.9 mg/dL (0.2-1.0); CREATININE 0.34 mg/dL (0.7-1.3); TOTAL PROTEIN 5.5 g/dL (6.4-8.2)
[2019-11-04 10:57] LABS: ANION GAP 3 mmol/L (5-15); CHLORIDE 102 mmol/L (98-107)
[2019-11-04] MEDS: ENOXAPARIN 40 MG/0.4 ML SQ SCH (22:24)
[2019-11-05] MEDS: ALBUTEROL/IPRATROPIUM 2.5MG/0.5MG, 3 ML NPPB SCH ×6 (02:49→22:50)
[2019-11-05 04:44] LABS: ANION GAP 3 mmol/L (5-15); CALCIUM 8.3 mg/dL (8.5-10.1); CHLORIDE 101 mmol/L (98-107)
[2019-11-05 04:47] LABS: CREATININE 0.39 mg/dL (0.7-1.3)
[2019-11-05] MEDS: ALPRazolam 1MG TAB PO PRN ×4 (05:23→23:09)
[2019-11-05] MEDS: BUDESONIDE 0.5 MG/2 ML INHA INH SCH ×2 (09:00→18:30)
[2019-11-05] MEDS: DOCUSATE 50 MG/5 ML, 10ML UDC PO SCH (09:26)
[2019-11-05] MEDS: AMIODARONE 200 MG TABLET PO SCH (09:26)
[2019-11-05] MEDS: BUSPIRONE 10 MG TABLET PO SCH ×3 (09:26→21:00)
[2019-11-05] MEDS: QUETIAPINE 25MG TABLET PO SCH ×2 (09:28→21:00)
[2019-11-05] MEDS: SODIUM CHLORIDE FLUSH 10ML SYR IVF SCH ×2 (09:29→21:00)
[2019-11-05] MEDS: HYDROcodone/APAP 7.5-325MG/15ML UDC PO PRN ×2 (12:05→18:15)
[2019-11-05] MEDS: ENOXAPARIN 40 MG/0.4 ML SQ SCH (21:00)
[2019-11-06] MEDS: ALBUTEROL/IPRATROPIUM 2.5MG/0.5MG, 3 ML NPPB SCH ×6 (01:59→23:00)
[2019-11-06] MEDS: HYDROcodone/APAP 7.5-325MG/15ML UDC PO PRN ×3 (03:16→21:21)
[2019-11-06] MEDS: ALPRazolam 1MG TAB PO PRN ×3 (05:54→19:02)
[2019-11-06] MEDS: BUDESONIDE 0.5 MG/2 ML INHA INH SCH ×2 (07:40→19:00)
[2019-11-06] MEDS: DOCUSATE 50 MG/5 ML, 10ML UDC PO SCH (09:21)
[2019-11-06] MEDS: AMIODARONE 200 MG TABLET PO SCH (09:21)
[2019-11-06] MEDS: QUETIAPINE 25MG TABLET PO SCH ×2 (09:21→21:20)
[2019-11-06] MEDS: BUSPIRONE 10 MG TABLET PO SCH ×3 (09:22→21:20)
[2019-11-06] MEDS: SODIUM CHLORIDE FLUSH 10ML SYR IVF SCH ×2 (09:23→21:11)
[2019-11-06] MEDS: ENOXAPARIN 40 MG/0.4 ML SQ SCH (21:20)
[2019-11-07] MEDS: ALBUTEROL/IPRATROPIUM 2.5MG/0.5MG, 3 ML NPPB SCH ×6 (02:45→23:00)
[2019-11-07] MEDS: ALPRazolam 1MG TAB PO PRN ×3 (06:21→19:20)
[2019-11-07] MEDS ORDERED: BUSPIRONE 5 MG TABLET ONE (08:17)
[2019-11-07] MEDS: BUDESONIDE 0.5 MG/2 ML INHA INH SCH ×2 (08:35→19:00)
[2019-11-07] MEDS: DOCUSATE 50 MG/5 ML, 10ML UDC PO SCH (08:43)
[2019-11-07] MEDS: BUSPIRONE 10 MG TABLET PO SCH ×3 (08:44→21:45)
[2019-11-07] MEDS: QUETIAPINE 25MG TABLET PO SCH ×2 (08:44→21:45)
[2019-11-07] MEDS: AMIODARONE 200 MG TABLET PO SCH (08:44)
[2019-11-07] MEDS: HYDROcodone/APAP 7.5-325MG/15ML UDC PO PRN ×3 (08:45→21:46)
[2019-11-07] MEDS: SODIUM CHLORIDE FLUSH 10ML SYR IVF SCH ×2 (08:46→21:44)
[2019-11-07] MEDS: ENOXAPARIN 40 MG/0.4 ML SQ SCH (21:45)
[2019-11-08] MEDS: ALPRazolam 1MG TAB PO PRN ×4 (02:06→21:31)
[2019-11-08] MEDS: ALBUTEROL/IPRATROPIUM 2.5MG/0.5MG, 3 ML NPPB SCH ×5 (03:00→22:28)
[2019-11-08] MEDS: HYDROcodone/APAP 7.5-325MG/15ML UDC PO PRN ×4 (05:52→21:30)
[2019-11-08] MEDS: BUDESONIDE 0.5 MG/2 ML INHA INH SCH ×2 (07:25→19:03)
[2019-11-08] MEDS: BUSPIRONE 10 MG TABLET PO SCH ×3 (08:18→21:30)
[2019-11-08] MEDS: QUETIAPINE 25MG TABLET PO SCH ×2 (08:19→21:30)
[2019-11-08] MEDS: AMIODARONE 200 MG TABLET PO SCH (08:19)
[2019-11-08] MEDS: DOCUSATE 50 MG/5 ML, 10ML UDC PO SCH (08:20)
[2019-11-08] MEDS: SODIUM CHLORIDE FLUSH 10ML SYR IVF SCH ×2 (08:20→21:36)
[2019-11-08] MEDS: ENOXAPARIN 40 MG/0.4 ML SQ SCH (21:30)
[2019-11-09] MEDS: HYDROcodone/APAP 7.5-325MG/15ML UDC PO PRN ×4 (01:30→16:56)
[2019-11-09] MEDS: ALBUTEROL/IPRATROPIUM 2.5MG/0.5MG, 3 ML NPPB SCH ×6 (02:20→22:31)
[2019-11-09] MEDS: ALPRazolam 1MG TAB PO PRN ×3 (03:42→21:24)
[2019-11-09] MEDS: BUDESONIDE 0.5 MG/2 ML INHA INH SCH ×2 (07:20→22:31)
[2019-11-09] MEDS: DOCUSATE 50 MG/5 ML, 10ML UDC PO SCH (07:42)
[2019-11-09] MEDS: SODIUM CHLORIDE FLUSH 10ML SYR IVF SCH ×2 (07:43→21:25)
[2019-11-09] MEDS: QUETIAPINE 25MG TABLET PO SCH ×2 (07:43→21:25)
[2019-11-09] MEDS: AMIODARONE 200 MG TABLET PO SCH (07:43)
[2019-11-09] MEDS: BUSPIRONE 10 MG TABLET PO SCH ×3 (07:43→21:25)
[2019-11-09] MEDS: ENOXAPARIN 40 MG/0.4 ML SQ SCH (21:23)
[2019-11-10] MEDS: ALBUTEROL/IPRATROPIUM 2.5MG/0.5MG, 3 ML NPPB SCH ×6 (02:35→23:10)
[2019-11-10] MEDS: ALPRazolam 1MG TAB PO PRN ×2 (03:25→11:11)
[2019-11-10] MEDS: HYDROcodone/APAP 7.5-325MG/15ML UDC PO PRN ×3 (04:22→23:02)
[2019-11-10] MEDS: BUDESONIDE 0.5 MG/2 ML INHA INH SCH ×2 (07:00→23:10)
[2019-11-10 07:31] LABS: BASOPHILS # (AUTO) 0.02 x10^3/uL (0-0.1); BASOPHILS % (AUTO) 0 % (0-1); EOSINOPHILS # (AUTO) 0.08 x10^3/uL (0-0.4); EOSINOPHILS % (AUTO) 2 % (1-7); LYMPHOCYTES # (AUTO) 0.79 x10^3/uL (1-3.4); LYMPHOCYTES % (AUTO) 16 % (22-44); MD NO; MEAN CORPUSCULAR HEMOGLOBIN 30.4 pg (27.5-34.5); MEAN CORPUSCULAR HGB CONC 32.4 g/dL (33.2-36.2); MEAN CORPUSCULAR VOLUME 93.7 fL (81-97); MEAN PLATELET VOLUME 6.7 fL (7.4-10.4); MONOCYTES # (AUTO) 0.64 x10^3/uL (0.2-0.8); MONOCYTES % (AUTO) 13 % (2-9); NEUTROPHILS # (AUTO) 3.58 x10^3/uL (1.8-6.8); NEUTROPHILS % (AUTO) 70 % (42-75); PLATELET COUNT 344 x10^3/uL (130-400); RED BLOOD COUNT 2.52 x10^6/uL (4.38-5.82); RED CELL DISTRIBUTION WIDTH 15.2 % (9.4-14.8)
[2019-11-10 07:38] LABS: ANION GAP 4 mmol/L (5-15); CALCIUM 8.4 mg/dL (8.5-10.1); CHLORIDE 100 mmol/L (98-107); CREATININE 0.43 mg/dL (0.7-1.3)
[2019-11-10] MEDS: QUETIAPINE 25MG TABLET PO SCH ×2 (09:03→22:10)
[2019-11-10] MEDS: BUSPIRONE 10 MG TABLET PO SCH ×3 (09:04→22:10)
[2019-11-10] MEDS: DOCUSATE 50 MG/5 ML, 10ML UDC PO SCH (09:05)
[2019-11-10] MEDS: AMIODARONE 200 MG TABLET PO SCH (09:05)
[2019-11-10] MEDS: FUROSEMIDE 40 MG TABLET PO SCH (09:06)
[2019-11-10] MEDS: SODIUM CHLORIDE FLUSH 10ML SYR IVF SCH ×2 (09:08→22:10)
[2019-11-10] MEDS: ENOXAPARIN 40 MG/0.4 ML SQ SCH (22:10)
[2019-11-11] MEDS: ALBUTEROL/IPRATROPIUM 2.5MG/0.5MG, 3 ML NPPB SCH ×6 (03:00→23:00)
[2019-11-11] MEDS: ALPRazolam 1MG TAB PO PRN ×3 (03:59→20:29)
[2019-11-11] MEDS: BUDESONIDE 0.5 MG/2 ML INHA INH SCH ×2 (06:54→21:00)
[2019-11-11] MEDS: HYDROcodone/APAP 7.5-325MG/15ML UDC PO PRN ×3 (08:58→18:21)
[2019-11-11] MEDS: QUETIAPINE 25MG TABLET PO SCH ×2 (09:35→20:29)
[2019-11-11] MEDS: BUSPIRONE 10 MG TABLET PO SCH ×3 (09:36→20:28)
[2019-11-11] MEDS: AMIODARONE 200 MG TABLET PO SCH (09:36)
[2019-11-11] MEDS: FUROSEMIDE 40 MG TABLET PO SCH (09:36)
[2019-11-11] MEDS: DOCUSATE 50 MG/5 ML, 10ML UDC PO SCH (09:37)
[2019-11-11] MEDS: SODIUM CHLORIDE FLUSH 10ML SYR IVF SCH ×2 (09:37→20:29)
[2019-11-11] MEDS: ENOXAPARIN 40 MG/0.4 ML SQ SCH (20:29)
[2019-11-12] MEDS: HYDROcodone/APAP 7.5-325MG/15ML UDC PO PRN ×4 (00:17→20:02)
[2019-11-12] MEDS: ALBUTEROL/IPRATROPIUM 2.5MG/0.5MG, 3 ML NPPB SCH ×6 (03:00→22:18)
[2019-11-12] MEDS: ALPRazolam 1MG TAB PO PRN ×3 (05:36→18:38)
[2019-11-12] MEDS: BUDESONIDE 0.5 MG/2 ML INHA INH SCH ×2 (06:50→18:27)
[2019-11-12] MEDS: BUSPIRONE 10 MG TABLET PO SCH ×3 (08:22→20:52)
[2019-11-12] MEDS: QUETIAPINE 25MG TABLET PO SCH ×2 (08:22→20:53)
[2019-11-12] MEDS: SODIUM CHLORIDE FLUSH 10ML SYR IVF SCH ×2 (08:22→21:06)
[2019-11-12] MEDS: DOCUSATE 50 MG/5 ML, 10ML UDC PO SCH (08:28)
[2019-11-12] MEDS: AMIODARONE 200 MG TABLET PO SCH (08:28)
[2019-11-12] MEDS: FUROSEMIDE 40 MG TABLET PO SCH (10:11)
[2019-11-12] MEDS: ENOXAPARIN 40 MG/0.4 ML SQ SCH (20:54)
[2019-11-13] MEDS: ALBUTEROL/IPRATROPIUM 2.5MG/0.5MG, 3 ML NPPB SCH ×6 (02:14→23:00)
[2019-11-13] MEDS: ALPRazolam 1MG TAB PO PRN ×3 (02:22→19:41)
[2019-11-13] MEDS: HYDROcodone/APAP 7.5-325MG/15ML UDC PO PRN ×4 (02:23→22:05)
[2019-11-13 04:38] LABS: BASOPHILS % (AUTO) 0 % (0-1); EOSINOPHILS # (AUTO) 0.09 x10^3/uL (0-0.4); EOSINOPHILS % (AUTO) 2 % (1-7); LYMPHOCYTES # (AUTO) 0.77 x10^3/uL (1-3.4); LYMPHOCYTES % (AUTO) 15 % (22-44); MD NO; MEAN CORPUSCULAR HEMOGLOBIN 30.2 pg (27.5-34.5); MEAN CORPUSCULAR HGB CONC 33.2 g/dL (33.2-36.2); MEAN CORPUSCULAR VOLUME 91.1 fL (81-97); MEAN PLATELET VOLUME 7.1 fL (7.4-10.4); MONOCYTES # (AUTO) 0.58 x10^3/uL (0.2-0.8); MONOCYTES % (AUTO) 11 % (2-9); NEUTROPHILS # (AUTO) 3.67 x10^3/uL (1.8-6.8); NEUTROPHILS % (AUTO) 72 % (42-75); PLATELET COUNT 324 x10^3/uL (130-400); RED BLOOD COUNT 2.54 x10^6/uL (4.38-5.82); RED CELL DISTRIBUTION WIDTH 15.3 % (9.4-14.8)
[2019-11-13 04:51] LABS: ANION GAP 7 mmol/L (5-15); CALCIUM 8.3 mg/dL (8.5-10.1); CHLORIDE 94 mmol/L (98-107)
[2019-11-13 04:52] LABS: CREATININE 0.48 mg/dL (0.7-1.3)
[2019-11-13] MEDS: BUDESONIDE 0.5 MG/2 ML INHA INH SCH ×2 (07:08→19:00)
[2019-11-13] MEDS ORDERED: SODIUM CHLORIDE 0.9% 1,000ML IV ONE (08:30)
[2019-11-13] MEDS: AMIODARONE 200 MG TABLET PO SCH (08:50)
[2019-11-13] MEDS: BUSPIRONE 10 MG TABLET PO SCH ×3 (08:50→22:00)
[2019-11-13] MEDS: DOCUSATE 50 MG/5 ML, 10ML UDC PO SCH (08:51)
[2019-11-13] MEDS: QUETIAPINE 25MG TABLET PO SCH ×2 (08:51→22:02)
[2019-11-13] MEDS: SODIUM CHLORIDE FLUSH 10ML SYR IVF SCH ×2 (08:52→21:00)
[2019-11-13] MEDS: ENOXAPARIN 40 MG/0.4 ML SQ SCH (22:06)
[2019-11-14] MEDS: ALBUTEROL/IPRATROPIUM 2.5MG/0.5MG, 3 ML NPPB SCH ×6 (02:00→22:53)
[2019-11-14] MEDS: ALPRazolam 1MG TAB PO PRN ×2 (02:08→14:34)
[2019-11-14] MEDS: HYDROcodone/APAP 7.5-325MG/15ML UDC PO PRN ×3 (02:08→17:09)
[2019-11-14 04:50] LABS: ALBUMIN 1.8 g/dL (3.4-5.0); ANION GAP 6 mmol/L (5-15); CALCIUM 8.2 mg/dL (8.5-10.1); CHLORIDE 96 mmol/L (98-107)
[2019-11-14 04:55] LABS: ALANINE AMINOTRANSFERASE 21 U/L (12-78); ALKALINE PHOSPHATASE 157 U/L (45-117); BILIRUBIN,TOTAL 0.5 mg/dL (0.2-1.0); CREATININE 0.43 mg/dL (0.7-1.3); TOTAL PROTEIN 5.5 g/dL (6.4-8.2)
[2019-11-14 05:54] LABS: BASOPHILS # (AUTO) 0.03 x10^3/uL (0-0.1); BASOPHILS % (AUTO) 1 % (0-1); EOSINOPHILS # (AUTO) 0.06 x10^3/uL (0-0.4); EOSINOPHILS % (AUTO) 1 % (1-7); LYMPHOCYTES # (AUTO) 0.94 x10^3/uL (1-3.4); LYMPHOCYTES % (AUTO) 17 % (22-44); MD NO; MEAN CORPUSCULAR HEMOGLOBIN 30.2 pg (27.5-34.5); MEAN CORPUSCULAR HGB CONC 33.1 g/dL (33.2-36.2); MEAN PLATELET VOLUME 7.2 fL (7.4-10.4); MONOCYTES # (AUTO) 0.64 x10^3/uL (0.2-0.8); MONOCYTES % (AUTO) 12 % (2-9); NEUTROPHILS # (AUTO) 3.85 x10^3/uL (1.8-6.8); NEUTROPHILS % (AUTO) 70 % (42-75); PLATELET COUNT 334 x10^3/uL (130-400); RED BLOOD COUNT 2.63 x10^6/uL (4.38-5.82); RED CELL DISTRIBUTION WIDTH 15.3 % (9.4-14.8)
[2019-11-14] MEDS: BUDESONIDE 0.5 MG/2 ML INHA INH SCH ×2 (07:19→21:00)
[2019-11-14] MEDS: BUSPIRONE 10 MG TABLET PO SCH ×3 (09:10→21:16)
[2019-11-14] MEDS: DOCUSATE 50 MG/5 ML, 10ML UDC PO SCH (09:11)
[2019-11-14] MEDS: QUETIAPINE 25MG TABLET PO SCH ×2 (09:11→21:15)
[2019-11-14] MEDS: SODIUM CHLORIDE FLUSH 10ML SYR IVF SCH ×2 (09:11→21:19)
[2019-11-14] MEDS: AMIODARONE 200 MG TABLET PO SCH (09:19)
[2019-11-14] MEDS: ENOXAPARIN 40 MG/0.4 ML SQ SCH (21:17)
[2019-11-15] MEDS: HYDROcodone/APAP 7.5-325MG/15ML UDC PO PRN ×2 (00:04→15:41)
[2019-11-15] MEDS: ALBUTEROL/IPRATROPIUM 2.5MG/0.5MG, 3 ML NPPB SCH ×6 (02:46→22:30)
[2019-11-15 04:45] LABS: BASOPHILS # (AUTO) 0.01 x10^3/uL (0-0.1); BASOPHILS % (AUTO) 0 % (0-1); EOSINOPHILS # (AUTO) 0.09 x10^3/uL (0-0.4); EOSINOPHILS % (AUTO) 1 % (1-7); LYMPHOCYTES # (AUTO) 0.86 x10^3/uL (1-3.4); LYMPHOCYTES % (AUTO) 13 % (22-44); MD NO; MEAN CORPUSCULAR HEMOGLOBIN 30.2 pg (27.5-34.5); MEAN CORPUSCULAR VOLUME 91.4 fL (81-97); MEAN PLATELET VOLUME 7.2 fL (7.4-10.4); MONOCYTES # (AUTO) 0.76 x10^3/uL (0.2-0.8); MONOCYTES % (AUTO) 11 % (2-9); NEUTROPHILS # (AUTO) 5.04 x10^3/uL (1.8-6.8); NEUTROPHILS % (AUTO) 75 % (42-75); PLATELET COUNT 303 x10^3/uL (130-400); RED BLOOD COUNT 2.61 x10^6/uL (4.38-5.82); RED CELL DISTRIBUTION WIDTH 15.6 % (9.4-14.8)
[2019-11-15 04:56] LABS: ALANINE AMINOTRANSFERASE 26 U/L (12-78); ALBUMIN 1.9 g/dL (3.4-5.0); ANION GAP 3 mmol/L (5-15); CALCIUM 8.5 mg/dL (8.5-10.1); CHLORIDE 98 mmol/L (98-107); CREATININE 0.52 mg/dL (0.7-1.3)
[2019-11-15 04:59] LABS: ALKALINE PHOSPHATASE 162 U/L (45-117); BILIRUBIN,TOTAL 0.4 mg/dL (0.2-1.0); TOTAL PROTEIN 5.7 g/dL (6.4-8.2)
[2019-11-15] MEDS: BUSPIRONE 10 MG TABLET PO SCH ×3 (08:57→21:22)
[2019-11-15] MEDS: AMIODARONE 200 MG TABLET PO SCH (08:57)
[2019-11-15] MEDS: QUETIAPINE 25MG TABLET PO SCH ×2 (08:57→21:22)
[2019-11-15] MEDS: DOCUSATE 50 MG/5 ML, 10ML UDC PO SCH (08:57)
[2019-11-15] MEDS: SODIUM CHLORIDE FLUSH 10ML SYR IVF SCH ×2 (08:58→21:23)
[2019-11-15] MEDS: BUDESONIDE 0.5 MG/2 ML INHA INH SCH ×2 (09:00→18:27)
[2019-11-15] MEDS: methylPREDNISolone SOD SUCC 125 MG/2 ML IVPush SCH (15:41)
[2019-11-15] MEDS: ENOXAPARIN 40 MG/0.4 ML SQ SCH (21:23)
[2019-11-16] MEDS: ALBUTEROL/IPRATROPIUM 2.5MG/0.5MG, 3 ML NPPB SCH ×6 (02:15→22:53)
[2019-11-16] MEDS: methylPREDNISolone SOD SUCC 125 MG/2 ML IVPush SCH ×2 (03:50→16:26)
[2019-11-16] MEDS: BUDESONIDE 0.5 MG/2 ML INHA INH SCH ×2 (06:45→19:06)
[2019-11-16 07:44] LABS: BASOPHILS % (AUTO) 0 % (0-1); EOSINOPHILS % (AUTO) 0 % (1-7); LYMPHOCYTES # (AUTO) 0.58 x10^3/uL (1-3.4); LYMPHOCYTES % (AUTO) 9 % (22-44); MD NO; MEAN CORPUSCULAR HGB CONC 33.5 g/dL (33.2-36.2); MEAN CORPUSCULAR VOLUME 89.6 fL (81-97); MEAN PLATELET VOLUME 7.6 fL (7.4-10.4); MONOCYTES # (AUTO) 0.21 x10^3/uL (0.2-0.8); MONOCYTES % (AUTO) 3 % (2-9); NEUTROPHILS # (AUTO) 5.69 x10^3/uL (1.8-6.8); NEUTROPHILS % (AUTO) 88 % (42-75); PLATELET COUNT 300 x10^3/uL (130-400); RED BLOOD COUNT 2.67 x10^6/uL (4.38-5.82); RED CELL DISTRIBUTION WIDTH 15.5 % (9.4-14.8)
[2019-11-16 07:51] LABS: ALANINE AMINOTRANSFERASE 28 U/L (12-78); ALBUMIN 1.9 g/dL (3.4-5.0); ANION GAP 6 mmol/L (5-15); CALCIUM 8.7 mg/dL (8.5-10.1); CHLORIDE 98 mmol/L (98-107)
[2019-11-16 07:54] LABS: ALKALINE PHOSPHATASE 147 U/L (45-117); BILIRUBIN,TOTAL 0.3 mg/dL (0.2-1.0); TOTAL PROTEIN 6.3 g/dL (6.4-8.2)
[2019-11-16] MEDS: DOCUSATE 50 MG/5 ML, 10ML UDC PO SCH (09:00)
[2019-11-16] MEDS: AMIODARONE 200 MG TABLET PO SCH (10:00)
[2019-11-16] MEDS: BUSPIRONE 10 MG TABLET PO SCH ×3 (10:00→20:43)
[2019-11-16] MEDS: QUETIAPINE 25MG TABLET PO SCH ×2 (10:00→20:43)
[2019-11-16] MEDS: SODIUM CHLORIDE FLUSH 10ML SYR IVF SCH ×2 (10:02→20:43)
[2019-11-16] MEDS: ENOXAPARIN 40 MG/0.4 ML SQ SCH (20:44)
[2019-11-17] MEDS: ALBUTEROL/IPRATROPIUM 2.5MG/0.5MG, 3 ML NPPB SCH ×6 (03:22→23:20)
[2019-11-17] MEDS: methylPREDNISolone SOD SUCC 125 MG/2 ML IVPush SCH ×3 (04:23→20:17)
[2019-11-17 04:36] LABS: ALANINE AMINOTRANSFERASE 33 U/L (12-78); ALBUMIN 1.9 g/dL (3.4-5.0); ANION GAP 5 mmol/L (5-15); CALCIUM 8.8 mg/dL (8.5-10.1); CHLORIDE 99 mmol/L (98-107); CREATININE 0.54 mg/dL (0.7-1.3)
[2019-11-17 04:38] LABS: ALKALINE PHOSPHATASE 134 U/L (45-117); BILIRUBIN,TOTAL 0.3 mg/dL (0.2-1.0); TOTAL PROTEIN 6.1 g/dL (6.4-8.2)
[2019-11-17] MEDS: BUDESONIDE 0.5 MG/2 ML INHA INH SCH ×2 (07:49→18:30)
[2019-11-17] MEDS: DOCUSATE 50 MG/5 ML, 10ML UDC PO SCH (09:00)
[2019-11-17] MEDS: BUSPIRONE 10 MG TABLET PO SCH ×3 (09:24→20:10)
[2019-11-17] MEDS: QUETIAPINE 25MG TABLET PO SCH ×2 (09:24→20:10)
[2019-11-17] MEDS: SODIUM CHLORIDE FLUSH 10ML SYR IVF SCH ×2 (09:25→20:17)
[2019-11-17] MEDS: AMIODARONE 200 MG TABLET PO SCH (09:25)
[2019-11-17 10:37] LABS: ALBUMIN 1.9 g/dL (3.4-5.0)
[2019-11-17 10:42] LABS: C-REACTIVE PROTEIN, QUANT 8.8 mg/dL (0.02-0.49); PREALBUMIN 10.9 mg/dL (20.0-40.0)
[2019-11-17] MEDS: ENOXAPARIN 40 MG/0.4 ML SQ SCH (21:13)
[2019-11-18] MEDS: ALBUTEROL/IPRATROPIUM 2.5MG/0.5MG, 3 ML NPPB SCH ×6 (02:15→22:56)
[2019-11-18 03:51] LABS: BASOPHILS % (AUTO) 0 % (0-1); EOSINOPHILS % (AUTO) 0 % (1-7); LYMPHOCYTES # (AUTO) 0.33 x10^3/uL (1-3.4); LYMPHOCYTES % (AUTO) 5 % (22-44); MD NO; MEAN CORPUSCULAR HEMOGLOBIN 29.6 pg (27.5-34.5); MEAN CORPUSCULAR VOLUME 89.8 fL (81-97); MEAN PLATELET VOLUME 7.8 fL (7.4-10.4); MONOCYTES # (AUTO) 0.29 x10^3/uL (0.2-0.8); MONOCYTES % (AUTO) 4 % (2-9); NEUTROPHILS # (AUTO) 6.65 x10^3/uL (1.8-6.8); NEUTROPHILS % (AUTO) 92 % (42-75); PLATELET COUNT 366 x10^3/uL (130-400); RED CELL DISTRIBUTION WIDTH 15.5 % (9.4-14.8)
[2019-11-18 03:59] LABS: ANION GAP 5 mmol/L (5-15); CALCIUM 8.7 mg/dL (8.5-10.1); CHLORIDE 100 mmol/L (98-107); CREATININE 0.57 mg/dL (0.7-1.3)
[2019-11-18] MEDS: BUDESONIDE 0.5 MG/2 ML INHA INH SCH ×2 (06:48→19:05)
[2019-11-18] MEDS: QUETIAPINE 25MG TABLET PO SCH ×2 (08:54→20:56)
[2019-11-18] MEDS: BUSPIRONE 10 MG TABLET PO SCH ×3 (08:54→20:56)
[2019-11-18] MEDS: methylPREDNISolone SOD SUCC 125 MG/2 ML IVPush SCH ×3 (08:54→20:56)
[2019-11-18] MEDS: AMIODARONE 200 MG TABLET PO SCH (08:54)
[2019-11-18] MEDS: SODIUM CHLORIDE FLUSH 10ML SYR IVF SCH ×2 (08:55→20:57)
[2019-11-18] MEDS: DOCUSATE 50 MG/5 ML, 10ML UDC PO SCH (09:02)
[2019-11-18] MEDS: HYDROcodone/APAP 7.5-325MG/15ML UDC PO PRN (19:41)
[2019-11-18] MEDS: ENOXAPARIN 40 MG/0.4 ML SQ SCH (20:56)
[2019-11-19] MEDS: ALBUTEROL/IPRATROPIUM 2.5MG/0.5MG, 3 ML NPPB SCH ×6 (02:30→22:45)
[2019-11-19] MEDS: BUDESONIDE 0.5 MG/2 ML INHA INH SCH ×2 (07:15→19:10)
[2019-11-19] MEDS: AMIODARONE 200 MG TABLET PO SCH (08:22)
[2019-11-19] MEDS: BUSPIRONE 10 MG TABLET PO SCH ×3 (08:22→20:14)
[2019-11-19] MEDS: QUETIAPINE 25MG TABLET PO SCH ×2 (08:22→20:15)
[2019-11-19] MEDS: DOCUSATE 50 MG/5 ML, 10ML UDC PO SCH (08:22)
[2019-11-19] MEDS: methylPREDNISolone SOD SUCC 125 MG/2 ML IVPush SCH ×3 (08:22→20:16)
[2019-11-19] MEDS: SODIUM CHLORIDE FLUSH 10ML SYR IVF SCH ×2 (08:23→20:17)
[2019-11-19] MEDS ORDERED: POTASSIUM CHLORIDE 20 MEQ TAB.ER.PRT PO ONE (09:30)
[2019-11-19] MEDS: HYDROcodone/APAP 7.5-325MG/15ML UDC PO PRN (16:11)
[2019-11-19] MEDS: FUROSEMIDE 20 MG/2 ML IV SCH (16:11)
[2019-11-19] MEDS: ENOXAPARIN 40 MG/0.4 ML SQ SCH (20:16)
[2019-11-19] MEDS ORDERED: METHADONE 5 MG TABLET ONE (23:30)
[2019-11-20] MEDS: ALBUTEROL/IPRATROPIUM 2.5MG/0.5MG, 3 ML NPPB SCH ×6 (02:59→23:10)
[2019-11-20] MEDS: HYDROcodone/APAP 7.5-325MG/15ML UDC PO PRN ×2 (05:27→20:33)
[2019-11-20] MEDS: BUDESONIDE 0.5 MG/2 ML INHA INH SCH ×2 (06:50→19:00)
[2019-11-20] MEDS: DOCUSATE 50 MG/5 ML, 10ML UDC PO SCH (09:59)
[2019-11-20] MEDS: FUROSEMIDE 20 MG/2 ML IV SCH (09:59)
[2019-11-20] MEDS: methylPREDNISolone SOD SUCC 125 MG/2 ML IVPush SCH ×3 (10:00→20:27)
[2019-11-20] MEDS: AMIODARONE 200 MG TABLET PO SCH (10:00)
[2019-11-20] MEDS: BUSPIRONE 10 MG TABLET PO SCH ×3 (10:00→20:27)
[2019-11-20] MEDS: QUETIAPINE 25MG TABLET PO SCH ×2 (10:00→20:27)
[2019-11-20] MEDS: SODIUM CHLORIDE FLUSH 10ML SYR IVF SCH ×2 (10:00→20:28)
[2019-11-20] MEDS: ENOXAPARIN 40 MG/0.4 ML SQ SCH (20:27)
[2019-11-20] MEDS: MELATONIN 5 MG TABLET PO PRN (20:27)
[2019-11-21] MEDS: ALBUTEROL/IPRATROPIUM 2.5MG/0.5MG, 3 ML NPPB SCH ×6 (02:40→22:50)
[2019-11-21] MEDS: BUDESONIDE 0.5 MG/2 ML INHA INH SCH ×2 (06:48→19:31)
[2019-11-21] MEDS ORDERED: POTASSIUM CHLORIDE 20 MEQ TAB.ER.PRT PO ONE (07:30)
[2019-11-21] MEDS: DOCUSATE 50 MG/5 ML, 10ML UDC PO SCH (09:58)
[2019-11-21] MEDS: BUSPIRONE 10 MG TABLET PO SCH ×3 (09:58→20:08)
[2019-11-21] MEDS: QUETIAPINE 25MG TABLET PO SCH ×2 (09:59→20:09)
[2019-11-21] MEDS: AMIODARONE 200 MG TABLET PO SCH (09:59)
[2019-11-21] MEDS: methylPREDNISolone SOD SUCC 125 MG/2 ML IVPush SCH (09:59)
[2019-11-21] MEDS ORDERED: FUROSEMIDE 20 MG/2 ML IV ONE (14:30)
[2019-11-21] MEDS: SODIUM CHLORIDE FLUSH 10ML SYR IVF SCH ×2 (15:03→20:08)
[2019-11-21] MEDS: methylPREDNISolone SOD SUCC 40 MG/ML IVPush SCH ×2 (16:00→20:08)
[2019-11-21] MEDS: ENOXAPARIN 40 MG/0.4 ML SQ SCH (20:09)
[2019-11-21] MEDS ORDERED: ALPRazolam 1MG TAB ONE (21:01)
[2019-11-22] MEDS: ALBUTEROL/IPRATROPIUM 2.5MG/0.5MG, 3 ML NPPB SCH ×6 (02:33→22:41)
[2019-11-22] MEDS: BUDESONIDE 0.5 MG/2 ML INHA INH SCH ×2 (07:45→19:46)
[2019-11-22 08:35] LABS: ALBUMIN 2.2 g/dL (3.4-5.0); CALCIUM 8.3 mg/dL (8.5-10.1)
[2019-11-22 08:38] LABS: ALANINE AMINOTRANSFERASE 27 U/L (12-78); ALKALINE PHOSPHATASE 126 U/L (45-117); BILIRUBIN,TOTAL 0.3 mg/dL (0.2-1.0); CREATININE 0.52 mg/dL (0.7-1.3); TOTAL PROTEIN 5.8 g/dL (6.4-8.2)
[2019-11-22 08:44] LABS: ANION GAP 3 mmol/L (5-15); CHLORIDE 100 mmol/L (98-107)
[2019-11-22 08:47] LABS: MD YES; MEAN CORPUSCULAR HGB CONC 32.5 g/dL (33.2-36.2); MEAN CORPUSCULAR VOLUME 92.2 fL (81-97); MEAN PLATELET VOLUME 6.9 fL (7.4-10.4); PLATELET COUNT 466 x10^3/uL (130-400); RED BLOOD COUNT 3.25 x10^6/uL (4.38-5.82); RED CELL DISTRIBUTION WIDTH 16.5 % (9.4-14.8)
[2019-11-22] MEDS: BUSPIRONE 10 MG TABLET PO SCH ×3 (09:06→21:20)
[2019-11-22] MEDS: DOCUSATE 50 MG/5 ML, 10ML UDC PO SCH (09:06)
[2019-11-22] MEDS: methylPREDNISolone SOD SUCC 40 MG/ML IVPush SCH ×3 (09:06→21:20)
[2019-11-22] MEDS: QUETIAPINE 25MG TABLET PO SCH ×2 (09:06→21:20)
[2019-11-22] MEDS: AMIODARONE 200 MG TABLET PO SCH (09:06)
[2019-11-22] MEDS: SODIUM CHLORIDE FLUSH 10ML SYR IVF SCH ×2 (09:07→21:20)
[2019-11-22 09:20] LABS: <PLATELET ESTIMATE> INCREASED; <PLT MORPHOLOGY> NORMAL PLT MORPH; <RBC MORPHOLOGY> NORMAL; LYMPH#(MANUAL) 0.71 x10^3/uL (1-3.4); LYMPHS% (MANUAL) 6 % (22-44); MONOS#(MANUAL) 0.59 x10^3/uL (0.3-2.7); MONOS% (MANUAL) 5 % (2-9); SEGS% (MANUAL) 89 % (42-75)
[2019-11-22] MEDS ORDERED: ALPRazolam 1MG TAB ONE (09:21)
[2019-11-22] MEDS: ENOXAPARIN 40 MG/0.4 ML SQ SCH (21:21)
[2019-11-23] MEDS: ALBUTEROL/IPRATROPIUM 2.5MG/0.5MG, 3 ML NPPB SCH ×6 (02:45→22:37)
[2019-11-23] MEDS: AMIODARONE 200 MG TABLET PO SCH (09:57)
[2019-11-23] MEDS: DOCUSATE 50 MG/5 ML, 10ML UDC PO SCH (09:58)
[2019-11-23] MEDS: BUSPIRONE 10 MG TABLET PO SCH ×3 (09:58→20:21)
[2019-11-23] MEDS: QUETIAPINE 25MG TABLET PO SCH ×2 (09:58→20:21)
[2019-11-23] MEDS: methylPREDNISolone SOD SUCC 40 MG/ML IVPush SCH ×2 (09:58→13:53)
[2019-11-23] MEDS: BUDESONIDE 0.5 MG/2 ML INHA INH SCH ×2 (10:08→19:14)
[2019-11-23] MEDS: SODIUM CHLORIDE FLUSH 10ML SYR IVF SCH ×2 (10:13→20:21)
[2019-11-23 14:30] VITALS: BP 136/75
[2019-11-23 19:28] VITALS: BP 145/78
[2019-11-23] MEDS: ENOXAPARIN 40 MG/0.4 ML SQ SCH (20:21)
[2019-11-24 02:00] VITALS: BP 136/80
[2019-11-24] MEDS: ALBUTEROL/IPRATROPIUM 2.5MG/0.5MG, 3 ML NPPB SCH ×7 (02:20→23:55)
[2019-11-24 06:59] VITALS: BP 136/72
[2019-11-24] MEDS: BUDESONIDE 0.5 MG/2 ML INHA INH SCH ×2 (07:45→18:55)
[2019-11-24] MEDS: DOCUSATE 50 MG/5 ML, 10ML UDC PO SCH (08:07)
[2019-11-24] MEDS: SODIUM CHLORIDE FLUSH 10ML SYR IVF SCH ×2 (08:07→21:07)
[2019-11-24] MEDS: ACETAMINOPHEN 650 MG SUPP PR PRN (08:08)
[2019-11-24] MEDS: methylPREDNISolone SOD SUCC 40 MG/ML IVPush SCH (08:08)
[2019-11-24] MEDS: QUETIAPINE 25MG TABLET PO SCH ×2 (08:09→20:04)
[2019-11-24] MEDS: AMIODARONE 200 MG TABLET PO SCH (08:09)
[2019-11-24] MEDS ORDERED: BUDESONIDE 0.5 MG/2 ML INHA NPPB SCH (09:00)
[2019-11-24 14:14] VITALS: BP 137/82
[2019-11-24] MEDS: BUSPIRONE 10 MG TABLET PO SCH ×2 (14:17→20:03)
[2019-11-24 19:13] VITALS: BP 128/78
[2019-11-24] MEDS: ENOXAPARIN 40 MG/0.4 ML SQ SCH (20:04)
[2019-11-24] MEDS: HYDROcodone/APAP 7.5-325MG/15ML UDC PO PRN (21:07)
[2019-11-25 00:07] VITALS: BP 113/75
[2019-11-25] MEDS: ALBUTEROL/IPRATROPIUM 2.5MG/0.5MG, 3 ML NPPB SCH ×6 (02:44→22:18)
[2019-11-25] MEDS: SODIUM CHLORIDE FLUSH 10ML SYR IVF SCH ×2 (07:26→20:43)
[2019-11-25] MEDS: BUDESONIDE 0.5 MG/2 ML INHA INH SCH ×2 (07:39→19:50)
[2019-11-25 08:00] VITALS: BP 120/76
[2019-11-25 08:34] LABS: ANION GAP 4 mmol/L (5-15); CHLORIDE 99 mmol/L (98-107); CREATININE 0.41 mg/dL (0.7-1.3)
[2019-11-25] MEDS: AMIODARONE 200 MG TABLET PO SCH (09:00)
[2019-11-25] MEDS: DOCUSATE 50 MG/5 ML, 10ML UDC PO SCH (09:00)
[2019-11-25 09:01] LABS: BASOPHILS % (AUTO) 0 % (0-1); EOSINOPHILS # (AUTO) 0.02 x10^3/uL (0-0.4); EOSINOPHILS % (AUTO) 0 % (1-7); LYMPHOCYTES # (AUTO) 0.52 x10^3/uL (1-3.4); LYMPHOCYTES % (AUTO) 5 % (22-44); MD SCAN; MEAN CORPUSCULAR HGB CONC 32.1 g/dL (33.2-36.2); MEAN CORPUSCULAR VOLUME 93.3 fL (81-97); MEAN PLATELET VOLUME 6.6 fL (7.4-10.4); MONOCYTES # (AUTO) 0.58 x10^3/uL (0.2-0.8); MONOCYTES % (AUTO) 6 % (2-9); NEUTROPHILS # (AUTO) 8.72 x10^3/uL (1.8-6.8); NEUTROPHILS % (AUTO) 89 % (42-75); PLATELET COUNT 351 x10^3/uL (130-400); RED BLOOD COUNT 3.21 x10^6/uL (4.38-5.82); RED CELL DISTRIBUTION WIDTH 17.1 % (9.4-14.8)
[2019-11-25] MEDS: QUETIAPINE 25MG TABLET PO SCH ×2 (09:26→20:41)
[2019-11-25] MEDS: PANTOPRAZOLE 40 MG IV IVPush SCH (09:27)
[2019-11-25] MEDS: BUSPIRONE 10 MG TABLET PO SCH ×3 (09:27→20:41)
[2019-11-25] MEDS: MORPHINE SULFATE 4 MG/ML, 1ML IVPush PRN ×3 (11:02→22:24)
[2019-11-25 11:04] VITALS: BP 121/72
[2019-11-25 12:26] VITALS: BP 148/88
[2019-11-25 20:26] VITALS: BP 123/78
[2019-11-25] MEDS: ENOXAPARIN 40 MG/0.4 ML SQ SCH (20:41)
[2019-11-25] MEDS: MELATONIN 5 MG TABLET PO PRN (20:41)
[2019-11-26 00:26] VITALS: BP 111/68
[2019-11-26] MEDS: ALBUTEROL/IPRATROPIUM 2.5MG/0.5MG, 3 ML NPPB SCH ×6 (02:30→23:00)
[2019-11-26] MEDS: MORPHINE SULFATE 4 MG/ML, 1ML IVPush PRN ×5 (06:13→23:16)
[2019-11-26] MEDS: BUDESONIDE 0.5 MG/2 ML INHA INH SCH ×2 (08:25→19:30)
[2019-11-26 08:37] VITALS: BP 111/71
[2019-11-26] MEDS: SODIUM CHLORIDE FLUSH 10ML SYR IVF SCH ×2 (09:00→21:00)
[2019-11-26] MEDS: AMIODARONE 200 MG TABLET PO SCH (09:26)
[2019-11-26] MEDS: DOCUSATE 50 MG/5 ML, 10ML UDC PO SCH (09:26)
[2019-11-26] MEDS: QUETIAPINE 25MG TABLET PO SCH ×2 (09:27→20:19)
[2019-11-26] MEDS: BUSPIRONE 10 MG TABLET PO SCH ×3 (09:27→20:19)
[2019-11-26] MEDS: PANTOPRAZOLE 40 MG IV IVPush SCH (09:27)
[2019-11-26 12:51] VITALS: BP 117/67
[2019-11-26 19:00] VITALS: BP 126/78
[2019-11-26 19:02] VITALS: BP 149/79
[2019-11-26] MEDS: LACTULOSE 20 GM/30 ML UDC NG PRN (20:18)
[2019-11-26] MEDS: ENOXAPARIN 40 MG/0.4 ML SQ SCH (20:19)
[2019-11-26] MEDS: MELATONIN 5 MG TABLET PO PRN (20:20)
[2019-11-27 00:34] VITALS: BP 106/66
[2019-11-27] MEDS: ALBUTEROL/IPRATROPIUM 2.5MG/0.5MG, 3 ML NPPB SCH ×6 (05:28→23:00)
[2019-11-27] MEDS: DOCUSATE 50 MG/5 ML, 10ML UDC PO SCH (07:49)
[2019-11-27] MEDS: PANTOPRAZOLE 40 MG IV IVPush SCH (07:49)
[2019-11-27] MEDS: BUSPIRONE 10 MG TABLET PO SCH ×3 (07:49→21:03)
[2019-11-27] MEDS: QUETIAPINE 25MG TABLET PO SCH ×2 (07:50→21:03)
[2019-11-27] MEDS: AMIODARONE 200 MG TABLET PO SCH (07:50)
[2019-11-27] MEDS: SODIUM CHLORIDE FLUSH 10ML SYR IVF SCH ×2 (07:51→21:44)
[2019-11-27] MEDS: MORPHINE SULFATE 4 MG/ML, 1ML IVPush PRN ×4 (07:54→21:08)
[2019-11-27] MEDS: BUDESONIDE 0.5 MG/2 ML INHA INH SCH ×2 (08:24→19:02)
[2019-11-27 08:48] VITALS: BP 108/73
[2019-11-27 14:21] VITALS: BP 110/72
[2019-11-27] MEDS ORDERED: ALPRazolam 1MG TAB ONE (14:45)
[2019-11-27 18:59] VITALS: BP 124/75
[2019-11-27] MEDS: ENOXAPARIN 40 MG/0.4 ML SQ SCH (21:04)
[2019-11-28 01:25] VITALS: BP 118/70
[2019-11-28] MEDS: ALBUTEROL/IPRATROPIUM 2.5MG/0.5MG, 3 ML NPPB SCH ×4 (07:47→22:36)
[2019-11-28] MEDS: BUDESONIDE 0.5 MG/2 ML INHA INH SCH ×2 (07:47→18:36)
[2019-11-28 08:04] VITALS: BP 121/75
[2019-11-28] MEDS: SODIUM CHLORIDE FLUSH 10ML SYR IVF SCH ×2 (08:41→20:51)
[2019-11-28] MEDS: BUSPIRONE 10 MG TABLET PO SCH ×3 (08:53→20:52)
[2019-11-28] MEDS: QUETIAPINE 25MG TABLET PO SCH ×2 (08:54→20:51)
[2019-11-28] MEDS: AMIODARONE 200 MG TABLET PO SCH (08:54)
[2019-11-28] MEDS: DOCUSATE 50 MG/5 ML, 10ML UDC PO SCH (08:54)
[2019-11-28] MEDS: PANTOPRAZOLE 40 MG IV IVPush SCH (08:54)
[2019-11-28] MEDS: MORPHINE SULFATE 4 MG/ML, 1ML IVPush PRN ×4 (08:55→20:52)
[2019-11-28] MEDS ORDERED: OXYcodone IR 5MG TABLET PO PRN (11:00)
[2019-11-28 13:05] VITALS: BP 122/68
[2019-11-28 19:16] VITALS: BP 130/84
[2019-11-28] MEDS: ENOXAPARIN 40 MG/0.4 ML SQ SCH (20:51)
[2019-11-29 00:57] VITALS: BP 112/69
[2019-11-29] MEDS: MORPHINE SULFATE 4 MG/ML, 1ML IVPush PRN ×5 (02:56→20:54)
[2019-11-29] MEDS: ALBUTEROL/IPRATROPIUM 2.5MG/0.5MG, 3 ML NPPB SCH ×4 (06:00→20:00)
[2019-11-29] MEDS: BUDESONIDE 0.5 MG/2 ML INHA INH SCH ×2 (06:40→20:13)
[2019-11-29 08:43] VITALS: BP 112/72
[2019-11-29] MEDS: SODIUM CHLORIDE FLUSH 10ML SYR IVF SCH ×2 (09:00→20:54)
[2019-11-29] MEDS: PANTOPRAZOLE 40 MG IV IVPush SCH (09:07)
[2019-11-29] MEDS: BUSPIRONE 10 MG TABLET PO SCH ×3 (09:08→20:49)
[2019-11-29] MEDS: AMIODARONE 200 MG TABLET PO SCH (09:08)
[2019-11-29] MEDS: QUETIAPINE 25MG TABLET PO SCH ×2 (09:08→20:49)
[2019-11-29] MEDS: DOCUSATE 50 MG/5 ML, 10ML UDC PO SCH (09:09)
[2019-11-29 12:10] VITALS: BP 113/72
[2019-11-29] MEDS ORDERED: ALPRazolam 1MG TAB ONE (14:45)
[2019-11-29 20:20] VITALS: BP 131/76
[2019-11-29] MEDS: ENOXAPARIN 40 MG/0.4 ML SQ SCH (20:53)
[2019-11-30 00:36] VITALS: BP 115/75
[2019-11-30] MEDS: MORPHINE SULFATE 4 MG/ML, 1ML IVPush PRN (03:12)
[2019-11-30] MEDS: ALBUTEROL/IPRATROPIUM 2.5MG/0.5MG, 3 ML NPPB SCH ×4 (07:00→19:59)
[2019-11-30] MEDS: BUDESONIDE 0.5 MG/2 ML INHA INH SCH ×2 (07:29→19:59)
[2019-11-30] MEDS: AMIODARONE 200 MG TABLET PO SCH (09:29)
[2019-11-30] MEDS: PANTOPRAZOLE 40 MG IV IVPush SCH (09:29)
[2019-11-30] MEDS: QUETIAPINE 25MG TABLET PO SCH ×2 (09:29→22:27)
[2019-11-30] MEDS: BUSPIRONE 10 MG TABLET PO SCH ×3 (09:29→22:27)
[2019-11-30] MEDS: DOCUSATE 50 MG/5 ML, 10ML UDC PO SCH (09:29)
[2019-11-30] MEDS: SODIUM CHLORIDE FLUSH 10ML SYR IVF SCH ×2 (09:30→21:00)
[2019-11-30 09:31] VITALS: BP 118/74
[2019-11-30] MEDS: OXYcodone IR 5MG TABLET PO PRN (15:13)
[2019-11-30 15:50] VITALS: BP 110/67
[2019-11-30 18:39] VITALS: BP 114/68
[2019-11-30] MEDS: ENOXAPARIN 40 MG/0.4 ML SQ SCH (22:27)
[2019-11-30] MEDS: HYDROcodone/APAP 7.5-325MG/15ML UDC PO PRN (22:36)
[2019-12-01] VITALS: BP 102/67
[2019-12-01] MEDS: MORPHINE SULFATE 4 MG/ML, 1ML IVPush PRN (05:43)
[2019-12-01 07:24] VITALS: BP 113/67
[2019-12-01] MEDS: ALBUTEROL/IPRATROPIUM 2.5MG/0.5MG, 3 ML NPPB SCH ×4 (07:40→21:02)
[2019-12-01] MEDS: BUDESONIDE 0.5 MG/2 ML INHA INH SCH ×2 (07:40→21:02)
[2019-12-01] MEDS: PANTOPRAZOLE 40 MG IV IVPush SCH (08:55)
[2019-12-01] MEDS: SODIUM CHLORIDE FLUSH 10ML SYR IVF SCH ×2 (08:56→22:15)
[2019-12-01] MEDS: BUSPIRONE 10 MG TABLET PO SCH ×3 (08:56→22:16)
[2019-12-01] MEDS: AMIODARONE 200 MG TABLET PO SCH (08:56)
[2019-12-01] MEDS: DOCUSATE 50 MG/5 ML, 10ML UDC PO SCH (08:57)
[2019-12-01] MEDS: QUETIAPINE 25MG TABLET PO SCH ×2 (09:04→22:16)
[2019-12-01] MEDS: OXYcodone IR 5MG TABLET PO PRN ×3 (13:09→22:14)
[2019-12-01 14:50] VITALS: BP 111/72
[2019-12-01 18:43] VITALS: BP 109/66
[2019-12-01] MEDS: ENOXAPARIN 40 MG/0.4 ML SQ SCH (22:15)
[2019-12-02 01:10] VITALS: BP 106/67
[2019-12-02 05:15] LABS: BASOPHILS # (AUTO) 0.03 x10^3/uL (0-0.1); BASOPHILS % (AUTO) 0 % (0-1); EOSINOPHILS # (AUTO) 0.08 x10^3/uL (0-0.4); EOSINOPHILS % (AUTO) 1 % (1-7); LYMPHOCYTES # (AUTO) 0.81 x10^3/uL (1-3.4); LYMPHOCYTES % (AUTO) 10 % (22-44); MD NO; MEAN CORPUSCULAR HEMOGLOBIN 29.6 pg (27.5-34.5); MEAN CORPUSCULAR HGB CONC 32.4 g/dL (33.2-36.2); MEAN CORPUSCULAR VOLUME 91.3 fL (81-97); MEAN PLATELET VOLUME 7.4 fL (7.4-10.4); MONOCYTES # (AUTO) 0.56 x10^3/uL (0.2-0.8); MONOCYTES % (AUTO) 7 % (2-9); NEUTROPHILS # (AUTO) 6.72 x10^3/uL (1.8-6.8); NEUTROPHILS % (AUTO) 82 % (42-75); PLATELET COUNT 233 x10^3/uL (130-400); RED BLOOD COUNT 3.37 x10^6/uL (4.38-5.82); RED CELL DISTRIBUTION WIDTH 18.4 % (9.4-14.8)
[2019-12-02 05:29] LABS: ANION GAP 1 mmol/L (5-15); CALCIUM 8.3 mg/dL (8.5-10.1); CHLORIDE 101 mmol/L (98-107); CREATININE 0.48 mg/dL (0.7-1.3)
[2019-12-02] MEDS: OXYcodone IR 5MG TABLET PO PRN ×4 (06:10→22:10)
[2019-12-02 07:10] VITALS: BP 112/71
[2019-12-02] MEDS: DOCUSATE 50 MG/5 ML, 10ML UDC PO SCH (08:40)
[2019-12-02] MEDS: PANTOPRAZOLE 40 MG IV IVPush SCH (08:41)
[2019-12-02] MEDS: QUETIAPINE 25MG TABLET PO SCH ×2 (08:41→22:10)
[2019-12-02] MEDS: AMIODARONE 200 MG TABLET PO SCH (08:41)
[2019-12-02] MEDS: BUSPIRONE 10 MG TABLET PO SCH ×3 (08:41→22:10)
[2019-12-02] MEDS: SODIUM CHLORIDE FLUSH 10ML SYR IVF SCH ×2 (08:42→21:00)
[2019-12-02] MEDS: BUDESONIDE 0.5 MG/2 ML INHA INH SCH ×2 (09:10→19:07)
[2019-12-02] MEDS: ALBUTEROL/IPRATROPIUM 2.5MG/0.5MG, 3 ML NPPB SCH ×4 (09:10→19:06)
[2019-12-02 13:26] VITALS: BP 112/74
[2019-12-02 21:10] VITALS: BP 122/72
[2019-12-02] MEDS: ENOXAPARIN 40 MG/0.4 ML SQ SCH (22:10)
[2019-12-03] MEDS: OXYcodone IR 5MG TABLET PO PRN ×4 (02:10→15:01)
[2019-12-03 02:21] VITALS: BP 115/75
[2019-12-03] MEDS: ALBUTEROL/IPRATROPIUM 2.5MG/0.5MG, 3 ML NPPB SCH ×4 (07:00→20:48)
[2019-12-03] MEDS: BUDESONIDE 0.5 MG/2 ML INHA INH SCH ×2 (09:00→20:48)
[2019-12-03 09:33] VITALS: BP 124/77
[2019-12-03] MEDS: BUSPIRONE 10 MG TABLET PO SCH ×3 (10:02→20:16)
[2019-12-03] MEDS: QUETIAPINE 25MG TABLET PO SCH ×2 (10:03→20:16)
[2019-12-03] MEDS: AMIODARONE 200 MG TABLET PO SCH (10:04)
[2019-12-03] MEDS: SODIUM CHLORIDE FLUSH 10ML SYR IVF SCH ×2 (10:04→21:00)
[2019-12-03] MEDS: DOCUSATE 50 MG/5 ML, 10ML UDC PO SCH (10:04)
[2019-12-03] MEDS: PANTOPRAZOLE 40 MG IV IVPush SCH (10:04)
[2019-12-03 13:14] VITALS: BP 166/80
[2019-12-03 18:55] VITALS: BP 112/70
[2019-12-03] MEDS: ENOXAPARIN 40 MG/0.4 ML SQ SCH (20:16)
[2019-12-04] MEDS: OXYcodone IR 5MG TABLET PO PRN ×4 (00:27→22:40)
[2019-12-04 02:36] VITALS: BP 126/87
[2019-12-04 06:36] VITALS: BP 120/79
[2019-12-04] MEDS: BUDESONIDE 0.5 MG/2 ML INHA INH SCH ×2 (07:00→19:29)
[2019-12-04] MEDS: ALBUTEROL/IPRATROPIUM 2.5MG/0.5MG, 3 ML NPPB SCH ×4 (07:00→19:29)
[2019-12-04] MEDS: DOCUSATE 50 MG/5 ML, 10ML UDC PO SCH (08:22)
[2019-12-04] MEDS: PANTOPRAZOLE 40 MG IV IVPush SCH (08:22)
[2019-12-04] MEDS: QUETIAPINE 25MG TABLET PO SCH ×2 (08:22→19:44)
[2019-12-04] MEDS: AMIODARONE 200 MG TABLET PO SCH (08:22)
[2019-12-04] MEDS: BUSPIRONE 10 MG TABLET PO SCH ×3 (08:22→19:45)
[2019-12-04] MEDS: SODIUM CHLORIDE FLUSH 10ML SYR IVF SCH ×2 (09:00→19:44)
[2019-12-04 12:33] VITALS: BP 108/69
[2019-12-04 19:12] VITALS: BP 109/69
[2019-12-04] MEDS: ENOXAPARIN 40 MG/0.4 ML SQ SCH (19:45)
[2019-12-05 01:45] VITALS: BP 121/79
[2019-12-05] MEDS: OXYcodone IR 5MG TABLET PO PRN ×4 (03:14→19:50)
[2019-12-05 04:55] LABS: BASOPHILS # (AUTO) 0.02 x10^3/uL (0-0.1); BASOPHILS % (AUTO) 0 % (0-1); EOSINOPHILS # (AUTO) 0.16 x10^3/uL (0-0.4); EOSINOPHILS % (AUTO) 2 % (1-7); LYMPHOCYTES # (AUTO) 0.84 x10^3/uL (1-3.4); LYMPHOCYTES % (AUTO) 12 % (22-44); MD NO; MEAN CORPUSCULAR HEMOGLOBIN 29.9 pg (27.5-34.5); MEAN CORPUSCULAR HGB CONC 32.9 g/dL (33.2-36.2); MEAN PLATELET VOLUME 7.9 fL (7.4-10.4); MONOCYTES # (AUTO) 0.54 x10^3/uL (0.2-0.8); MONOCYTES % (AUTO) 8 % (2-9); NEUTROPHILS # (AUTO) 5.63 x10^3/uL (1.8-6.8); NEUTROPHILS % (AUTO) 78 % (42-75); PLATELET COUNT 188 x10^3/uL (130-400); RED BLOOD COUNT 3.21 x10^6/uL (4.38-5.82); RED CELL DISTRIBUTION WIDTH 18.1 % (9.4-14.8)
[2019-12-05 05:06] LABS: CHLORIDE 99 mmol/L (98-107)
[2019-12-05 05:16] LABS: ALANINE AMINOTRANSFERASE 19 U/L (12-78); ALBUMIN 2.3 g/dL (3.4-5.0); ALKALINE PHOSPHATASE 93 U/L (45-117); ANION GAP 1 mmol/L (5-15); BILIRUBIN,TOTAL 0.3 mg/dL (0.2-1.0); CALCIUM 8.6 mg/dL (8.5-10.1); CREATININE 0.47 mg/dL (0.7-1.3); TOTAL PROTEIN 5.8 g/dL (6.4-8.2)
[2019-12-05 07:35] VITALS: BP 111/69
[2019-12-05] MEDS: BUDESONIDE 0.5 MG/2 ML INHA INH SCH ×2 (08:10→19:17)
[2019-12-05] MEDS: ALBUTEROL/IPRATROPIUM 2.5MG/0.5MG, 3 ML NPPB SCH ×4 (08:10→19:17)
[2019-12-05] MEDS: AMIODARONE 200 MG TABLET PO SCH (08:47)
[2019-12-05] MEDS: QUETIAPINE 25MG TABLET PO SCH ×2 (08:47→20:52)
[2019-12-05] MEDS: DOCUSATE 50 MG/5 ML, 10ML UDC PO SCH (08:48)
[2019-12-05] MEDS: SODIUM CHLORIDE FLUSH 10ML SYR IVF SCH ×2 (08:48→20:53)
[2019-12-05] MEDS: PANTOPRAZOLE 40 MG IV IVPush SCH (08:48)
[2019-12-05] MEDS: BUSPIRONE 10 MG TABLET PO SCH ×3 (09:17→23:39)
[2019-12-05 12:36] VITALS: BP 112/65
[2019-12-05 18:58] VITALS: BP 118/78
[2019-12-05] MEDS: ENOXAPARIN 40 MG/0.4 ML SQ SCH (20:52)
[2019-12-06 02:24] VITALS: BP 122/74
[2019-12-06] MEDS: ALBUTEROL/IPRATROPIUM 2.5MG/0.5MG, 3 ML NPPB SCH ×4 (05:54→20:00)
[2019-12-06] MEDS: BUDESONIDE 0.5 MG/2 ML INHA INH SCH ×2 (05:54→20:00)
[2019-12-06 07:53] VITALS: BP 101/65
[2019-12-06] MEDS: DOCUSATE 50 MG/5 ML, 10ML UDC PO SCH (08:01)
[2019-12-06] MEDS: PANTOPRAZOLE 40 MG IV IVPush SCH (08:01)
[2019-12-06] MEDS: QUETIAPINE 25MG TABLET PO SCH ×2 (08:01→21:05)
[2019-12-06] MEDS: BUSPIRONE 10 MG TABLET PO SCH ×3 (08:02→21:05)
[2019-12-06] MEDS: OXYcodone IR 5MG TABLET PO PRN ×3 (08:02→16:20)
[2019-12-06] MEDS: SODIUM CHLORIDE FLUSH 10ML SYR IVF SCH ×2 (08:02→21:06)
[2019-12-06] MEDS: AMIODARONE 200 MG TABLET PO SCH (08:02)
[2019-12-06 11:14] LABS: ANION GAP 4 mmol/L (5-15); CALCIUM 8.7 mg/dL (8.5-10.1); CHLORIDE 102 mmol/L (98-107); CREATININE 0.53 mg/dL (0.7-1.3)
[2019-12-06 15:48] VITALS: BP 102/65
[2019-12-06 20:49] VITALS: BP 138/82
[2019-12-06] MEDS: ENOXAPARIN 40 MG/0.4 ML SQ SCH (21:05)
[2019-12-07 00:02] VITALS: BP 116/75
[2019-12-07] MEDS: ALBUTEROL/IPRATROPIUM 2.5MG/0.5MG, 3 ML NPPB SCH ×2 (05:18→11:05)
[2019-12-07 07:21] LABS: ANION GAP 1 mmol/L (5-15); CALCIUM 9.3 mg/dL (8.5-10.1); CHLORIDE 105 mmol/L (98-107); CREATININE 0.55 mg/dL (0.7-1.3)
[2019-12-07 07:29] VITALS: BP 122/71
[2019-12-07] MEDS: DOCUSATE 50 MG/5 ML, 10ML UDC PO SCH (07:54)
[2019-12-07] MEDS: PANTOPRAZOLE 40 MG IV IVPush SCH (07:54)
[2019-12-07] MEDS: OXYcodone IR 5MG TABLET PO PRN (07:56)
[2019-12-07] MEDS: AMIODARONE 200 MG TABLET PO SCH (07:57)
[2019-12-07] MEDS: QUETIAPINE 25MG TABLET PO SCH (07:58)
[2019-12-07] MEDS: BUSPIRONE 10 MG TABLET PO SCH (07:59)
[2019-12-07] MEDS: SODIUM CHLORIDE FLUSH 10ML SYR IVF SCH (08:01)
[2019-12-07] MEDS: BUDESONIDE 0.5 MG/2 ML INHA INH SCH (11:05)
[2019-12-07 12:15] VITALS: BP 102/64
[2019-12-07] MEDS ORDERED: OXYC5TAB3 PO (12:30)
[2019-12-07] MEDS ORDERED: QUET25TA7 PO (12:30)
[2019-12-07] MEDS ORDERED: ALPR0.5T6 PO (12:30)
[2019-12-07] MEDS ORDERED: BUSP10TA PO (12:30)
[2019-12-07] MEDS ORDERED: SENN-193 NG (12:30)
[2019-12-07] MEDS ORDERED: AMIO200T42 PO (12:30)
== END 2019-12-07 14:43 | DRG 5 ==
LOC: ED 18:19 → EDIP 18:20 → ED 18:36 → ICU 10-08 09:55 → CCU 11-07 07:14 → ICU 11-10 17:11 → CCU 11-12 14:21 → ICU 11-15 19:32 → 3N 11-23 14:18
PROVIDERS: ADMIT Family Medicine; ATTEND Hospitalist
PROC: 0BH17EZ Insertion of Endotracheal Airway into Trachea, Via Natural or Artificial Opening (ICD-10-PCS; principal; 2019-10-07)
PROC: 5A1955Z Respiratory Ventilation, Greater than 96 Consecutive Hours (ICD-10-PCS; 2019-10-07)
PROC: 02HV33Z Insertion of Infusion Device into Superior Vena Cava, Percutaneous Approach (ICD-10-PCS; 2019-10-07)
PROC: B548ZZA Ultrasonography of Superior Vena Cava, Guidance (ICD-10-PCS; 2019-10-07)
PROC: 0T9B70Z Drainage of Bladder with Drainage Device, Via Natural or Artificial Opening (ICD-10-PCS; 2019-10-08)
PROC: 0BJ08ZZ Inspection of Tracheobronchial Tree, Via Natural or Artificial Opening Endoscopic (ICD-10-PCS; 2019-10-21)
PROC: 0B113F4 Bypass Trachea to Cutaneous with Tracheostomy Device, Percutaneous Approach (ICD-10-PCS; 2019-10-21)
PROC: 0DH63UZ Insertion of Feeding Device into Stomach, Percutaneous Approach (ICD-10-PCS; 2019-10-25)
DX: A40.9 Streptococcal sepsis, unspecified (principal); I46.9 Cardiac arrest, cause unspecified; J15.0 Pneumonia due to Klebsiella pneumoniae; J14 Pneumonia due to Hemophilus influenzae; J15.1 Pneumonia due to Pseudomonas; J96.21 Acute and chronic respiratory failure with hypoxia; A31.0 Pulmonary mycobacterial infection; G93.41 Metabolic encephalopathy; D69.6 Thrombocytopenia, unspecified; Z99.11 Dependence on respirator [ventilator] status; R65.21 Severe sepsis with septic shock; J15.4 Pneumonia due to other streptococci; J44.0 Chronic obstructive pulmonary disease with (acute) lower respiratory infection; I27.20 Pulmonary hypertension, unspecified; I48.0 Paroxysmal atrial fibrillation; I50.32 Chronic diastolic (congestive) heart failure; J84.10 Pulmonary fibrosis, unspecified; I48.92 Unspecified atrial flutter; D63.8 Anemia in other chronic diseases classified elsewhere; E88.09 Other disorders of plasma-protein metabolism, not elsewhere classified; F17.200 Nicotine dependence, unspecified, uncomplicated; F41.9 Anxiety disorder, unspecified; G89.29 Other chronic pain; M54.9 Dorsalgia, unspecified; I25.10 Atherosclerotic heart disease of native coronary artery without angina pectoris; I50.33 Acute on chronic diastolic (congestive) heart failure; I73.1 Thromboangiitis obliterans [Buerger's disease]; J44.1 Chronic obstructive pulmonary disease with (acute) exacerbation; K72.00 Acute and subacute hepatic failure without coma; N28.9 Disorder of kidney and ureter, unspecified; R13.10 Dysphagia, unspecified; R63.3 Feeding difficulties; Y95 Nosocomial condition; Z51.5 Encounter for palliative care; Z79.51 Long term (current) use of inhaled steroids; Z79.899 Other long term (current) drug therapy; Z93.0 Tracheostomy status; Z93.1 Gastrostomy status; Z99.81 Dependence on supplemental oxygen
CPT/HCPCS: 31500; 31502; 36415; 36556; 36600; 70450; 71045; 80047; 80048; 80053; 81001; 82040; 82533; 82803; 82962; 83605; 83735; 83880; 84100; 84134; 84145; 84443; 84478; 84484; 85025; 85610; 85730; 86022; 86140; 86480; 87015; 87040; 87070; 87077; 87081; 87086; 87102; 87106; 87116; 87181; 87184; 87186; 87205; 87206; 92950; 93005; 93308; 93321; 93325; 94002; 94003; 94640; 94660; 96374; 96375; B4087; G0378; J0696; J1650; J1940; J2185; J2250; J2543; J2704; J3010; J3370; J7620; J7626; P9047; C9113; J0282; J1120; J1160; J1815; J2270; J2370; J2920; J2930; J3475; J3490; J7030; J7040; J7050; J7512

== ENCOUNTER 2020-01-30 08:52 | Inpatient (IN) | payer MEDICAID ==
[~2020-01-30] VITALS: Ht 185.4 cm; Wt 70.3 kg
[~2020-01-30 08:52] MED LIST changes: +ACET-2274 PO; -ACET325T21 PO; +ACET650S21 PO; +ALBU90AE INH; +ALPR0.5T7 PO; +AMIO200T42 PO; +BUSP10TA PO; +GUAI100L6 PO; +GUAI400T81 PO; +HYDR-3240 PO; +IPRA3AMP30 IH; +OXYC5TAB3 PO; +PRED10TA PO; -PROPOFOL 10 MG/ML, 100ML IV ONE; +QUET25TA7 PO; -ROCURONIUM 10MG/ML,5ML ONE; +SENN-193 NG
[2020-01-30] MEDS ORDERED: ALBUTEROL/IPRATROPIUM 2.5MG/0.5MG, 3 ML ONE ×2 (09:19→09:21)
[2020-01-30] MEDS: MIDAZOLAM 1 MG/ML, 2ML IVPush PRN ×5 (09:20→10:40)
--- NOTE | 2020-01-30 09:55 | NUR ---
PT ARRIVED FROM [facility] WITH EMS. PT TUBED WTIH 7.5 ET TUBE, 25 AT THE LIP. URINE SOAKED LINENS REMOVED, PT PLACED ON CLEAN LINEN, IN PT GOWN. RT HERE, PT ON VENT. IO FROM EMS FLUSHES AND BEING UTILIZED, ANOTHER IV STARTED. ORAL GASTRIC TUBE PLACED, HOOKED TO LOW CONTINUOUS SUCTION. ORAL GASTRIC TUBE PLACEMENT CONFIRMED BY ASPIRATION AND AUSCULTATION. 650CC OF FLUID OUT OF STOMACH. OLMOS PLACED, 50CC IN MEASURING CANISTER AT THIS TIME. SOCKS PLACED ON PT FEET. BILAT BEDRAILS UP.
[2020-01-30] MEDS ORDERED: ALBUTEROL SULFATE 2.5 MG/3 ML NPPB ONE (10:00)
[2020-01-30] MEDS ORDERED: methylPREDNISolone SOD SUCC 125 MG/2 ML IV ONE (10:00)
[2020-01-30] MEDS ORDERED: ETOMIDATE 20 MG/10 ML IVPush ONE (10:00)
[2020-01-30] MEDS ORDERED: SODIUM CHLORIDE FLUSH 10ML SYR IVF ONE (10:00)
[2020-01-30] MEDS ORDERED: SUCCINYLCHOLINE 20 MG/ML, 10ML IVPush ONE (10:00)
[2020-01-30] MEDS ORDERED: ALBUTEROL/IPRATROPIUM 2.5MG/0.5MG, 3 ML NEB ONE ×2 (10:00→11:30)
[2020-01-30] MEDS: NOREPINEPHRINE 8 MG in SODIUM CHLORIDE 0.9% 242 ML IV PRN (10:02)
[2020-01-30] MEDS ORDERED: PROPOFOL 100 ML IV ONE (10:06)
--- NOTE | 2020-01-30 10:21 | NUR ---
ORDERED DRIPS STARTED ON PT. PT RESTING CALMLY IN BED WITH ORDERED SEDATION. SOFT BILAT WRIST RESTRAINTS IN PLACE FOR ET TUBE SAFETY. PT VSS. WILL CONTINUE TO MONITOR.
[2020-01-30] MEDS: PROPOFOL 100 ML IV PRN ×2 (10:32→15:49)
[2020-01-30 10:33] LABS: MEAN CORPUSCULAR HEMOGLOBIN 28.6 pg (27.5-34.5); MEAN CORPUSCULAR HGB CONC 32.5 g/dL (33.2-36.2); MEAN PLATELET VOLUME 7.5 fL (7.4-10.4); PLATELET COUNT 242 x10^3/uL (130-400); RED BLOOD COUNT 3.98 x10^6/uL (4.38-5.82)
[2020-01-30 10:43] LABS: INTERNATIONAL NORMALIZED RATIO 1.39 (0.93-1.1); PROTHROMBIN TIME 14.8 Seconds (9.6-11.5)
[2020-01-30 10:45] LABS: ALANINE AMINOTRANSFERASE 35 U/L (12-78); ANION GAP 4 mmol/L (5-15); CALCIUM 8.2 mg/dL (8.5-10.1); CHLORIDE 100 mmol/L (98-107); CREATININE 1.01 mg/dL (0.7-1.3)
[2020-01-30 10:50] LABS: ALKALINE PHOSPHATASE 79 U/L (45-117); BILIRUBIN,TOTAL 0.8 mg/dL (0.2-1.0); TOTAL PROTEIN 6.7 g/dL (6.4-8.2); TROPONIN I < 0.015 ng/mL (0.000-0.045)
[2020-01-30 10:52] LABS: MD YES
[2020-01-30 10:58] LABS: BANDS%(MANUAL) 16 % (0-7); MONOS#(MANUAL) 1.45 x10^3/uL (0.3-2.7); MONOS% (MANUAL) 8 % (2-9); SEGS% (MANUAL) 76 % (42-75)
[2020-01-30 11:05] LABS: POLYCHROMASIA 1+
[2020-01-30] MEDS ORDERED: PRED10TA14 PO (11:06)
[2020-01-30] MEDS ORDERED: BUDE10.2 INH (11:06)
[2020-01-30 11:08] LABS: TOXIC GRAN 1+
[2020-01-30 11:09] LABS: <PLATELET ESTIMATE> ADEQUATE
[2020-01-30 11:11] LABS: <PLT MORPHOLOGY> NORMAL PLT MORPH
[2020-01-30] MEDS ORDERED: SODIUM CHLORIDE 0.9% 1,000ML IVBOLUS ONE (11:30)
[2020-01-30] MEDS ORDERED: DOXYCYCLINE 100 MG in DEXTROSE 5% 250 ML IV ONE (11:30)
--- NOTE | 2020-01-30 11:41 | NUR ---
report called to Juvencio GALO for icu room 103-4
[2020-01-30] MEDS ORDERED: PROPOFOL 100 ML IV PRN (11:44)
[2020-01-30] MEDS ORDERED: NOREPINEPHRINE 8 MG in SODIUM CHLORIDE 0.9% 242 ML IV PRN (11:44)
[2020-01-30] MEDS ORDERED: ALBUTEROL SULFATE 2.5 MG/3 ML INLINE SCH (12:00)
[2020-01-30] MEDS ORDERED: SENNA 176 MG/5 ML ORAL SOL NG PRN (12:00)
[2020-01-30] MEDS ORDERED: LACTULOSE 20 GM/30 ML UDC NG PRN (12:00)
[2020-01-30] MEDS ORDERED: BISACODYL 10 MG SUPP PR PRN (12:00)
[2020-01-30] MEDS ORDERED: LIDOCAINE-MPF 1%, 2ML ENDO PRN (12:00)
[2020-01-30] MEDS ORDERED: PHARMACY MAY ADJ FOR RENAL FX MC SCH (12:00)
--- NOTE | 2020-01-30 12:21 | NUR ---
CENTRAL LINE BEING PLACED AT THIS TIME.
[2020-01-30 12:56] LABS: MICROSCOPIC INDICATED
[2020-01-30] MEDS ORDERED: ACETAMINOPHEN 650 MG SUPP ONE (12:57)
[2020-01-30] MEDS ORDERED: ACETAMINOPHEN 650 MG SUPP PR ONE (13:00)
[2020-01-30] MEDS: ALBUTEROL/IPRATROPIUM 2.5MG/0.5MG, 3 ML INLINE SCH ×3 (14:40→22:35)
[2020-01-30] MEDS ORDERED: methylPREDNISolone SOD SUCC 125 MG/2 ML IVPush SCH (16:00)
[2020-01-30] MEDS: PIPERACILLIN/TAZO/PMX 4.5GM 100 ML IV SCH ×2 (16:30→22:09)
[2020-01-30] MEDS ORDERED: VANCOMYCIN PER PHARMACY MC PRN (16:30)
[2020-01-30] MEDS ORDERED: PHARMACOKINETIC MONITORING MC PRN (17:00)
[2020-01-30] MEDS ORDERED: ONDANSETRON 2MG/ML, 2ML IVPush PRN (17:00)
[2020-01-30] MEDS ORDERED: DEXTROSE 4 GM TAB.CHEW PO PRN (17:00)
[2020-01-30] MEDS ORDERED: DEXTROSE 50%, 50ML SYRINGE IVPush PRN (17:00)
[2020-01-30] MEDS ORDERED: PHARMACOKINETIC CONSULTATION MC ONE (17:00)
[2020-01-30] MEDS ORDERED: GLUCAGON 1 MG IM PRN (17:00)
[2020-01-30] MEDS: HEPARIN 5,000 UNITS/ML, 1ML SQ SCH ×2 (18:20→22:08)
[2020-01-30] MEDS: AZITHROMYCIN 500 MG in SODIUM CHLORIDE 0.9% 250 ML IV SCH (18:20)
[2020-01-30] MEDS: PANTOPRAZOLE 40 MG IV IV SCH (18:20)
[2020-01-30] MEDS: ASCORBATE SODIUM 3,000 MG in SODIUM CHLORIDE 0.9% 250 ML IVPB SCH ×2 (18:21→22:10)
[2020-01-30] MEDS: VANCOMYCIN 1,400 MG in SODIUM CHLORIDE 0.9% 250 ML IV SCH (18:21)
[2020-01-30] MEDS: ACETAMINOPHEN 325 MG TABLET PO/NG PRN ×2 (18:51→23:50)
[2020-01-30] MEDS: BUDESONIDE 0.5 MG/2 ML INHA INH SCH (19:05)
[2020-01-30] MEDS ORDERED: PHARMACY MAY ADJ FOR RENAL FX MC PRN (19:30)
[2020-01-30] MEDS ORDERED: PROCHLORPERAZINE 5 MG/ML, 2ML IVPush PRN (19:30)
[2020-01-30] MEDS ORDERED: PROCHLORPERAZINE 10MG TABLET PO PRN (19:30)
[2020-01-30] MEDS ORDERED: HYDROXYCHLOROQUINE 200 MG TABLET PO SCH (21:00)
[2020-01-30] MEDS: SODIUM CHLORIDE FLUSH 10ML SYR IVF SCH (22:09)
[2020-01-30] MEDS: PLAQUENIL 200MG/8ML ORAL SUSP PEG SCH (22:09)
[2020-01-30] MEDS: INSULIN LISPRO 100 UNITS/ML, PEN SQ-INSULIN SCH (23:50)
[2020-01-31] MEDS: PROPOFOL 100 ML IV PRN ×3 (00:21→22:53)
[2020-01-31] MEDS: ALBUTEROL/IPRATROPIUM 2.5MG/0.5MG, 3 ML INLINE SCH ×6 (02:57→22:30)
[2020-01-31] MEDS: NOREPINEPHRINE 8 MG in SODIUM CHLORIDE 0.9% 242 ML IV PRN (03:21)
[2020-01-31] MEDS: HEPARIN 5,000 UNITS/ML, 1ML SQ SCH ×3 (03:22→20:39)
[2020-01-31] MEDS: PIPERACILLIN/TAZO/PMX 4.5GM 100 ML IV SCH ×4 (04:19→22:43)
[2020-01-31] MEDS: ASCORBATE SODIUM 3,000 MG in SODIUM CHLORIDE 0.9% 250 ML IVPB SCH ×4 (04:19→22:43)
[2020-01-31 04:34] LABS: MEAN CORPUSCULAR HEMOGLOBIN 28.7 pg (27.5-34.5); MEAN CORPUSCULAR HGB CONC 32.8 g/dL (33.2-36.2); MEAN CORPUSCULAR VOLUME 87.2 fL (81-97); MEAN PLATELET VOLUME 7.4 fL (7.4-10.4); PLATELET COUNT 257 x10^3/uL (130-400); RED BLOOD COUNT 4.19 x10^6/uL (4.38-5.82); RED CELL DISTRIBUTION WIDTH 17.6 % (9.4-14.8)
[2020-01-31 04:44] LABS: ANION GAP 8 mmol/L (5-15); CALCIUM 9.2 mg/dL (8.5-10.1); CHLORIDE 101 mmol/L (98-107); CREATININE 0.72 mg/dL (0.7-1.3)
[2020-01-31 04:50] LABS: CREATINE KINASE, TOTAL 27 U/L (39-308)
[2020-01-31 04:53] LABS: D-DIMER 6.32 ug/mlFEU (0.00-0.52)
[2020-01-31 04:58] LABS: C-REACTIVE PROTEIN, QUANT > 19.00 mg/dL (0.02-0.49)
[2020-01-31] MEDS: VANCOMYCIN 1,400 MG in SODIUM CHLORIDE 0.9% 250 ML IV SCH ×2 (05:37→18:16)
[2020-01-31 05:39] LABS: MD YES
[2020-01-31 05:41] LABS: BAND#(MANUAL) 7.53 x10^3/uL; BANDS%(MANUAL) 30 % (0-7); LYMPH#(MANUAL) 0.25 x10^3/uL (1-3.4); LYMPHS% (MANUAL) 1 % (22-44); MONOS#(MANUAL) 0.25 x10^3/uL (0.3-2.7); MONOS% (MANUAL) 1 % (2-9); PMNS WITH VACUOLES 1+; SEG#(MANUAL) 17.07 x10^3/uL (1.8-6.8); SEGS% (MANUAL) 68 % (42-75)
[2020-01-31] MEDS: INSULIN LISPRO 100 UNITS/ML, PEN SQ-INSULIN SCH ×4 (05:41→22:44)
[2020-01-31 05:42] LABS: ANISOCYTOSIS 1+; POLYCHROMASIA 1+; TOXIC GRAN 1+
[2020-01-31 05:43] LABS: <PLATELET ESTIMATE> ADEQUATE; <PLT MORPHOLOGY> NORMAL PLT MORPH
[2020-01-31] MEDS: BUDESONIDE 0.5 MG/2 ML INHA INH SCH ×2 (06:50→18:40)
[2020-01-31] MEDS: PANTOPRAZOLE 40 MG IV IV SCH (08:08)
[2020-01-31] MEDS: THIAMINE 100MG TABLET PO SCH (08:08)
[2020-01-31] MEDS: ZINC SULFATE 220 MG CAPSULE PO SCH (08:08)
[2020-01-31] MEDS: CHOLECALCIFEROL 5,000u TAB PO SCH (08:09)
[2020-01-31] MEDS: SODIUM CHLORIDE FLUSH 10ML SYR IVF SCH ×2 (08:09→20:39)
[2020-01-31] MEDS: PLAQUENIL 200MG/8ML ORAL SUSP PEG SCH (08:10)
[2020-01-31] MEDS ORDERED: OMNIPAQUE 350 MG/ML, 50 ML BOTTLE ONE (10:51)
--- NOTE | 2020-01-31 11:32 | NUR ---
TF GOAL: w/ propofol: PROMOTE @ 75ML/HR off propofol: PROMOTE @ 80ML/HR
[2020-01-31] MEDS: CLINDAMYCIN PMX 600MG/50ML 50 ML IV SCH ×2 (11:53→20:38)
[2020-01-31] MEDS: ACETAMINOPHEN 325 MG TABLET PO/NG PRN (11:53)
[2020-01-31] MEDS ORDERED: DILTIAZEM 5 MG/ML, 5ML ONE (18:10)
[2020-01-31] MEDS: AZITHROMYCIN 500 MG in SODIUM CHLORIDE 0.9% 250 ML IV SCH (18:16)
[2020-01-31] MEDS ORDERED: DILTIAZEM 5 MG/ML, 5ML IVPush ONE (18:30)
[2020-01-31] MEDS ORDERED: AMIODARONE 150 MG in DEXTROSE 5% 100 ML IV ONE (19:00)
[2020-01-31] MEDS ORDERED: PHENYLEPHRINE 50 MG in SODIUM CHLORIDE 0.9% 245 ML IV PRN (19:00)
[2020-01-31] MEDS ORDERED: FILTER 0.22 MICRON FOR AMIODARONE IV PRN (19:00)
[2020-01-31] MEDS: AMIODARONE 450 MG in DEXTROSE 5% 241 ML IV PRN (19:56)
[2020-01-31] MEDS: PLAQUENIL 200MG/8ML ORAL SUSP PO SCH (20:54)
[2020-01-31] MEDS ORDERED: HYDROXYCHLOROQUINE 200 MG TABLET PO SCH (21:00)
[2020-02-01] MEDS: ALBUTEROL/IPRATROPIUM 2.5MG/0.5MG, 3 ML INLINE SCH ×6 (02:45→22:40)
[2020-02-01] MEDS: AMIODARONE 450 MG in DEXTROSE 5% 241 ML IV PRN ×2 (03:21→16:11)
[2020-02-01] MEDS: HEPARIN 5,000 UNITS/ML, 1ML SQ SCH ×3 (04:27→19:56)
[2020-02-01] MEDS: CLINDAMYCIN PMX 600MG/50ML 50 ML IV SCH (04:27)
[2020-02-01] MEDS: PIPERACILLIN/TAZO/PMX 4.5GM 100 ML IV SCH ×4 (04:27→21:47)
[2020-02-01 05:18] LABS: ANION GAP 7 mmol/L (5-15); CALCIUM 8.8 mg/dL (8.5-10.1); CHLORIDE 103 mmol/L (98-107)
[2020-02-01 05:25] LABS: MEAN CORPUSCULAR HEMOGLOBIN 28.1 pg (27.5-34.5); MEAN CORPUSCULAR HGB CONC 32.1 g/dL (33.2-36.2); MEAN CORPUSCULAR VOLUME 87.7 fL (81-97); MEAN PLATELET VOLUME 7.9 fL (7.4-10.4); PLATELET COUNT 240 x10^3/uL (130-400); RED BLOOD COUNT 3.48 x10^6/uL (4.38-5.82); RED CELL DISTRIBUTION WIDTH 17.2 % (9.4-14.8)
[2020-02-01 05:26] LABS: CREATINE KINASE, TOTAL 15 U/L (39-308); CREATININE 0.71 mg/dL (0.7-1.3); VANCOMYCIN,TROUGH 21.4 mcg/mL (5.0-10.0)
[2020-02-01 05:28] LABS: C-REACTIVE PROTEIN, QUANT > 19.00 mg/dL (0.02-0.49)
[2020-02-01 05:35] LABS: D-DIMER 1.36 ug/mlFEU (0.00-0.52)
[2020-02-01 05:44] LABS: MD YES
[2020-02-01 05:46] LABS: ANISOCYTOSIS 1+; BAND#(MANUAL) 2.46 x10^3/uL; BANDS%(MANUAL) 10 % (0-7); LYMPH#(MANUAL) 0.49 x10^3/uL (1-3.4); LYMPHS% (MANUAL) 2 % (22-44); MONOS#(MANUAL) 0.49 x10^3/uL (0.3-2.7); MONOS% (MANUAL) 2 % (2-9); POLYCHROMASIA 1+; SEG#(MANUAL) 21.16 x10^3/uL (1.8-6.8); SEGS% (MANUAL) 86 % (42-75); TOXIC GRAN 1+
[2020-02-01] MEDS: VANCOMYCIN 1,400 MG in SODIUM CHLORIDE 0.9% 250 ML IV SCH (05:46)
[2020-02-01 05:47] LABS: <PLATELET ESTIMATE> ADEQUATE; <PLT MORPHOLOGY> NORMAL PLT MORPH
[2020-02-01] MEDS: ASCORBATE SODIUM 3,000 MG in SODIUM CHLORIDE 0.9% 250 ML IVPB SCH ×4 (06:01→23:00)
[2020-02-01] MEDS ORDERED: POTASSIUM CHLORIDE 10% 40 MEQ/30 ML UDC PO ONE ×2 (06:30→16:00)
[2020-02-01] MEDS: INSULIN LISPRO 100 UNITS/ML, PEN SQ-INSULIN SCH ×4 (07:00→21:00)
[2020-02-01] MEDS: BUDESONIDE 0.5 MG/2 ML INHA INH SCH ×2 (07:15→18:30)
[2020-02-01] MEDS: PROPOFOL 100 ML IV PRN ×2 (07:40→19:56)
[2020-02-01] MEDS ORDERED: FUROSEMIDE 20 MG/2 ML ONE (09:33)
[2020-02-01] MEDS: PANTOPRAZOLE 40 MG IV IV SCH (09:38)
[2020-02-01] MEDS: THIAMINE 100MG TABLET PO SCH (09:38)
[2020-02-01] MEDS: ZINC SULFATE 220 MG CAPSULE PO SCH (09:39)
[2020-02-01] MEDS: PLAQUENIL 200MG/8ML ORAL SUSP PO SCH ×2 (09:40→21:47)
[2020-02-01] MEDS: SODIUM CHLORIDE FLUSH 10ML SYR IVF SCH ×2 (09:41→21:47)
[2020-02-01] MEDS: CHOLECALCIFEROL 5,000u TAB PO SCH (14:46)
[2020-02-01] MEDS ORDERED: FUROSEMIDE 20 MG/2 ML IV ONE (16:00)
[2020-02-01] MEDS: FENTANYL PF 100 MCG/2ML IVPush PRN ×2 (16:12→21:48)
[2020-02-01] MEDS: AZITHROMYCIN 500 MG in SODIUM CHLORIDE 0.9% 250 ML IV SCH (16:22)
[2020-02-02] MEDS ORDERED: VANCOMYCIN 1,400 MG in SODIUM CHLORIDE 0.9% 250 ML IV SCH
[2020-02-02] MEDS: ALBUTEROL/IPRATROPIUM 2.5MG/0.5MG, 3 ML INLINE SCH ×6 (02:55→23:00)
[2020-02-02] MEDS: PROPOFOL 100 ML IV PRN ×4 (03:54→22:37)
[2020-02-02] MEDS: PIPERACILLIN/TAZO/PMX 4.5GM 100 ML IV SCH ×4 (03:54→22:32)
[2020-02-02] MEDS: HEPARIN 5,000 UNITS/ML, 1ML SQ SCH ×3 (03:55→20:17)
[2020-02-02 04:29] LABS: CALCIUM 8.4 mg/dL (8.5-10.1); CHLORIDE 106 mmol/L (98-107)
[2020-02-02 04:31] LABS: MEAN CORPUSCULAR HEMOGLOBIN 28.5 pg (27.5-34.5); MEAN CORPUSCULAR HGB CONC 32.6 g/dL (33.2-36.2); MEAN CORPUSCULAR VOLUME 87.3 fL (81-97); MEAN PLATELET VOLUME 7.7 fL (7.4-10.4); PLATELET COUNT 197 x10^3/uL (130-400); RED CELL DISTRIBUTION WIDTH 17.4 % (9.4-14.8)
[2020-02-02 04:45] LABS: ALANINE AMINOTRANSFERASE 26 U/L (12-78); ALBUMIN 1.5 g/dL (3.4-5.0); ALKALINE PHOSPHATASE 77 U/L (45-117); ANION GAP 5 mmol/L (5-15); BILIRUBIN,TOTAL 0.6 mg/dL (0.2-1.0); CREATINE KINASE, TOTAL 13 U/L (39-308); CREATININE 0.64 mg/dL (0.7-1.3); TOTAL PROTEIN 6.4 g/dL (6.4-8.2); TRIGLYCERIDES 92 mg/dL (50-200)
[2020-02-02 04:58] LABS: MD YES
[2020-02-02 05:00] LABS: BAND#(MANUAL) 0.17 x10^3/uL; BANDS%(MANUAL) 1 % (0-7); LYMPH#(MANUAL) 0.52 x10^3/uL (1-3.4); LYMPHS% (MANUAL) 3 % (22-44); MONOS#(MANUAL) 1.21 x10^3/uL (0.3-2.7); MONOS% (MANUAL) 7 % (2-9); SEGS% (MANUAL) 89 % (42-75); TOXIC GRAN 1+
[2020-02-02 05:02] LABS: ANISOCYTOSIS 1+
[2020-02-02 05:03] LABS: <PLATELET ESTIMATE> ADEQUATE; <PLT MORPHOLOGY> NORMAL PLT MORPH
[2020-02-02 05:04] LABS: C-REACTIVE PROTEIN, QUANT > 19.00 mg/dL (0.02-0.49)
[2020-02-02 05:09] LABS: D-DIMER 1.47 ug/mlFEU (0.00-0.52)
[2020-02-02] MEDS: ASCORBATE SODIUM 3,000 MG in SODIUM CHLORIDE 0.9% 250 ML IVPB SCH (05:33)
[2020-02-02] MEDS ORDERED: ALBUTEROL SULFATE 2.5 MG/3 ML ONE (06:38)
[2020-02-02] MEDS ORDERED: IPRATROPIUM 0.5 MG/2.5 ML INHA ONE (06:39)
[2020-02-02] MEDS: INSULIN LISPRO 100 UNITS/ML, PEN SQ-INSULIN SCH ×3 (09:00→22:00)
[2020-02-02] MEDS: PLAQUENIL 200MG/8ML ORAL SUSP PO SCH ×2 (09:00→22:33)
[2020-02-02] MEDS: SODIUM CHLORIDE FLUSH 10ML SYR IVF SCH ×2 (09:01→20:17)
[2020-02-02] MEDS: ASCORBIC ACID 500 MG TABLET PO SCH (09:02)
[2020-02-02] MEDS: CHOLECALCIFEROL 5,000u TAB PO SCH (09:02)
[2020-02-02] MEDS: PANTOPRAZOLE 40 MG IV IV SCH (09:02)
[2020-02-02] MEDS: ZINC SULFATE 220 MG CAPSULE PO SCH (09:02)
[2020-02-02] MEDS: THIAMINE 100MG TABLET PO SCH (09:03)
[2020-02-02] MEDS: AMIODARONE 450 MG in DEXTROSE 5% 241 ML IV PRN ×2 (09:03→22:32)
[2020-02-02] MEDS: BUDESONIDE 0.5 MG/2 ML INHA INH SCH ×2 (10:25→18:50)
[2020-02-02] MEDS: ACETAMINOPHEN 325 MG TABLET PO/NG PRN (11:01)
[2020-02-02] MEDS: AZITHROMYCIN 500 MG in SODIUM CHLORIDE 0.9% 250 ML IV SCH (17:01)
[2020-02-03] MEDS: ALBUTEROL/IPRATROPIUM 2.5MG/0.5MG, 3 ML INLINE SCH ×5 (02:10→22:20)
[2020-02-03] MEDS: PROPOFOL 100 ML IV PRN ×3 (02:38→17:25)
[2020-02-03] MEDS: HEPARIN 5,000 UNITS/ML, 1ML SQ SCH ×3 (04:00→20:17)
[2020-02-03] MEDS: PIPERACILLIN/TAZO/PMX 4.5GM 100 ML IV SCH ×4 (04:00→22:47)
[2020-02-03] MEDS: INSULIN LISPRO 100 UNITS/ML, PEN SQ-INSULIN SCH ×4 (04:05→20:58)
[2020-02-03 04:45] LABS: MEAN CORPUSCULAR HEMOGLOBIN 28.5 pg (27.5-34.5); MEAN CORPUSCULAR HGB CONC 32.7 g/dL (33.2-36.2); MEAN PLATELET VOLUME 7.9 fL (7.4-10.4); PLATELET COUNT 202 x10^3/uL (130-400); RED BLOOD COUNT 3.06 x10^6/uL (4.38-5.82); RED CELL DISTRIBUTION WIDTH 17.6 % (9.4-14.8)
[2020-02-03 04:52] LABS: ALBUMIN 1.4 g/dL (3.4-5.0); ANION GAP 6 mmol/L (5-15); CALCIUM 8.2 mg/dL (8.5-10.1); CHLORIDE 103 mmol/L (98-107)
[2020-02-03 04:53] LABS: D-DIMER 1.45 ug/mlFEU (0.00-0.52)
[2020-02-03 05:06] LABS: ALANINE AMINOTRANSFERASE 28 U/L (12-78); ALKALINE PHOSPHATASE 81 U/L (45-117); BILIRUBIN,TOTAL 0.4 mg/dL (0.2-1.0); CREATINE KINASE, TOTAL 17 U/L (39-308); CREATININE 0.53 mg/dL (0.7-1.3); TOTAL PROTEIN 6.3 g/dL (6.4-8.2)
[2020-02-03 05:44] LABS: MD YES
[2020-02-03 05:46] LABS: <PLATELET ESTIMATE> ADEQUATE; <PLT MORPHOLOGY> NORMAL PLT MORPH; ANISOCYTOSIS 1+; BAND#(MANUAL) 0.29 x10^3/uL; BANDS%(MANUAL) 2 % (0-7); LYMPH#(MANUAL) 0.59 x10^3/uL (1-3.4); LYMPHS% (MANUAL) 4 % (22-44); SEG#(MANUAL) 13.82 x10^3/uL (1.8-6.8); SEGS% (MANUAL) 94 % (42-75); TOXIC GRAN 1+
[2020-02-03] MEDS ORDERED: FUROSEMIDE 20 MG/2 ML IV ONE (09:30)
[2020-02-03] MEDS: PANTOPRAZOLE 40 MG IV IV SCH (09:34)
[2020-02-03] MEDS: CHOLECALCIFEROL 5,000u TAB PO SCH (09:34)
[2020-02-03] MEDS: ZINC SULFATE 220 MG CAPSULE PO SCH (09:34)
[2020-02-03] MEDS: ASCORBIC ACID 500 MG TABLET PO SCH (09:35)
[2020-02-03] MEDS: THIAMINE 100MG TABLET PO SCH (09:35)
[2020-02-03] MEDS: SODIUM CHLORIDE FLUSH 10ML SYR IVF SCH ×2 (09:36→20:20)
[2020-02-03] MEDS ORDERED: FUROSEMIDE 20 MG/2 ML ONE (09:38)
[2020-02-03] MEDS ORDERED: POTASSIUM CHLORIDE 10% 40 MEQ/30 ML UDC ONE (09:42)
[2020-02-03] MEDS: FENTANYL PF 100 MCG/2ML IVPush PRN (09:46)
[2020-02-03] MEDS ORDERED: POTASSIUM CHLORIDE 10% 40 MEQ/30 ML UDC PO ONE (10:00)
[2020-02-03] MEDS: BUDESONIDE 0.5 MG/2 ML INHA INH SCH ×2 (10:36→18:25)
[2020-02-03] MEDS: PLAQUENIL 200MG/8ML ORAL SUSP PO SCH ×2 (11:00→20:54)
[2020-02-03] MEDS: AMIODARONE 450 MG in DEXTROSE 5% 241 ML IV PRN (15:58)
[2020-02-03] MEDS ORDERED: AZITHROMYCIN 500 MG in SODIUM CHLORIDE 0.9% 250 ML IV SCH (16:30)
[2020-02-04] MEDS: PROPOFOL 100 ML IV PRN ×4 (00:54→18:08)
[2020-02-04] MEDS: ALBUTEROL/IPRATROPIUM 2.5MG/0.5MG, 3 ML INLINE SCH ×6 (02:10→23:25)
[2020-02-04] MEDS: INSULIN LISPRO 100 UNITS/ML, PEN SQ-INSULIN SCH ×4 (04:00→21:00)
[2020-02-04] MEDS: PIPERACILLIN/TAZO/PMX 4.5GM 100 ML IV SCH ×4 (04:10→22:29)
[2020-02-04] MEDS: HEPARIN 5,000 UNITS/ML, 1ML SQ SCH (04:10)
[2020-02-04 04:56] LABS: MEAN CORPUSCULAR HEMOGLOBIN 29.1 pg (27.5-34.5); MEAN CORPUSCULAR HGB CONC 33.2 g/dL (33.2-36.2); MEAN CORPUSCULAR VOLUME 87.7 fL (81-97); PLATELET COUNT 229 x10^3/uL (130-400); RED BLOOD COUNT 2.88 x10^6/uL (4.38-5.82); RED CELL DISTRIBUTION WIDTH 17.4 % (9.4-14.8)
[2020-02-04 04:59] LABS: D-DIMER 2.09 ug/mlFEU (0.00-0.52)
[2020-02-04 05:01] LABS: CHLORIDE 105 mmol/L (98-107)
[2020-02-04 05:21] LABS: ALANINE AMINOTRANSFERASE 29 U/L (12-78); ALBUMIN 1.2 g/dL (3.4-5.0); ALKALINE PHOSPHATASE 85 U/L (45-117); ANION GAP 5 mmol/L (5-15); BILIRUBIN,TOTAL 0.4 mg/dL (0.2-1.0); CALCIUM 7.8 mg/dL (8.5-10.1); CREATINE KINASE, TOTAL 22 U/L (39-308); CREATININE 0.39 mg/dL (0.7-1.3); TOTAL PROTEIN 6.2 g/dL (6.4-8.2)
[2020-02-04 05:46] LABS: BASOPHILS # (AUTO) 0.01 x10^3/uL (0-0.1); BASOPHILS % (AUTO) 0 % (0-1); EOSINOPHILS # (AUTO) 0.04 x10^3/uL (0-0.4); EOSINOPHILS % (AUTO) 0 % (1-7); LYMPHOCYTES % (AUTO) 4 % (22-44); MD SCAN; MONOCYTES # (AUTO) 0.37 x10^3/uL (0.2-0.8); MONOCYTES % (AUTO) 3 % (2-9); NEUTROPHILS # (AUTO) 10.27 x10^3/uL (1.8-6.8); NEUTROPHILS % (AUTO) 92 % (42-75)
[2020-02-04] MEDS: PANTOPRAZOLE 40 MG IV IV SCH (08:10)
[2020-02-04] MEDS: THIAMINE 100MG TABLET PO SCH (08:10)
[2020-02-04] MEDS: ZINC SULFATE 220 MG CAPSULE PO SCH (08:10)
[2020-02-04] MEDS: ASCORBIC ACID 500 MG TABLET PO SCH (08:10)
[2020-02-04] MEDS: AMIODARONE 450 MG in DEXTROSE 5% 241 ML IV PRN (08:11)
[2020-02-04] MEDS: CHOLECALCIFEROL 5,000u TAB PO SCH (08:11)
[2020-02-04] MEDS: PLAQUENIL 200MG/8ML ORAL SUSP PO SCH (08:12)
[2020-02-04] MEDS: SODIUM CHLORIDE FLUSH 10ML SYR IVF SCH ×2 (08:12→21:00)
[2020-02-04 08:37] LABS: FIO2 30 %
[2020-02-04] MEDS: BUDESONIDE 0.5 MG/2 ML INHA INH SCH ×2 (10:59→20:06)
[2020-02-04] MEDS ORDERED: ENOXAPARIN 80 MG/0.8 ML SQ SCH (11:00)
[2020-02-04] MEDS: ENOXAPARIN 80 MG/0.8 ML SQ SCH (12:25)
[2020-02-04] MEDS: AMIODARONE 200 MG TABLET PO SCH (21:00)
[2020-02-04] MEDS: FENTANYL PF 100 MCG/2ML IVPush PRN (21:25)
[2020-02-04] MEDS ORDERED: ALBUTEROL SULFATE 2.5 MG/3 ML ONE (22:39)
[2020-02-05] MEDS: ALBUTEROL/IPRATROPIUM 2.5MG/0.5MG, 3 ML INLINE SCH ×6 (03:00→23:00)
[2020-02-05] MEDS: INSULIN LISPRO 100 UNITS/ML, PEN SQ-INSULIN SCH (03:00)
[2020-02-05] MEDS: ENOXAPARIN 80 MG/0.8 ML SQ SCH ×2 (03:09→15:22)
[2020-02-05 03:36] LABS: BASOPHILS # (AUTO) 0.03 x10^3/uL (0-0.1); BASOPHILS % (AUTO) 0 % (0-1); EOSINOPHILS # (AUTO) 0.07 x10^3/uL (0-0.4); EOSINOPHILS % (AUTO) 1 % (1-7); LYMPHOCYTES # (AUTO) 0.62 x10^3/uL (1-3.4); LYMPHOCYTES % (AUTO) 6 % (22-44); MD NO; MEAN CORPUSCULAR HEMOGLOBIN 28.6 pg (27.5-34.5); MEAN CORPUSCULAR HGB CONC 33.1 g/dL (33.2-36.2); MEAN CORPUSCULAR VOLUME 86.3 fL (81-97); MEAN PLATELET VOLUME 7.5 fL (7.4-10.4); MONOCYTES # (AUTO) 0.36 x10^3/uL (0.2-0.8); MONOCYTES % (AUTO) 4 % (2-9); NEUTROPHILS # (AUTO) 8.67 x10^3/uL (1.8-6.8); NEUTROPHILS % (AUTO) 89 % (42-75); PLATELET COUNT 246 x10^3/uL (130-400); RED BLOOD COUNT 2.73 x10^6/uL (4.38-5.82); RED CELL DISTRIBUTION WIDTH 17.6 % (9.4-14.8)
[2020-02-05 03:44] LABS: ALBUMIN 1.1 g/dL (3.4-5.0); ANION GAP 4 mmol/L (5-15); CALCIUM 7.8 mg/dL (8.5-10.1); CHLORIDE 101 mmol/L (98-107)
[2020-02-05 03:49] LABS: D-DIMER 2.32 ug/mlFEU (0.00-0.52)
[2020-02-05 03:52] LABS: ALANINE AMINOTRANSFERASE 62 U/L (12-78); ALKALINE PHOSPHATASE 113 U/L (45-117); BILIRUBIN,TOTAL 0.3 mg/dL (0.2-1.0); CREATINE KINASE, TOTAL 26 U/L (39-308); CREATININE 0.41 mg/dL (0.7-1.3); TRIGLYCERIDES 127 mg/dL (50-200)
[2020-02-05] MEDS: PIPERACILLIN/TAZO/PMX 4.5GM 100 ML IV SCH ×4 (04:35→22:03)
[2020-02-05] MEDS: BUDESONIDE 0.5 MG/2 ML INHA INH SCH ×2 (08:07→18:55)
[2020-02-05] MEDS: PANTOPRAZOLE 40 MG IV IV SCH (09:57)
[2020-02-05] MEDS: PROPOFOL 100 ML IV PRN ×3 (09:57→20:22)
[2020-02-05] MEDS: CHOLECALCIFEROL 5,000u TAB PO SCH (09:58)
[2020-02-05] MEDS: ZINC SULFATE 220 MG CAPSULE PO SCH (09:58)
[2020-02-05] MEDS: AMIODARONE 200 MG TABLET PO SCH ×2 (09:58→22:03)
[2020-02-05] MEDS: SODIUM CHLORIDE FLUSH 10ML SYR IVF SCH ×2 (09:58→22:03)
[2020-02-05] MEDS: THIAMINE 100MG TABLET PO SCH (09:58)
[2020-02-05] MEDS: ASCORBIC ACID 500 MG TABLET PO SCH (11:50)
[2020-02-05] MEDS: FENTANYL PF 100 MCG/2ML IVPush PRN (13:58)
[2020-02-06] MEDS: PROPOFOL 100 ML IV PRN ×3 (01:29→18:30)
[2020-02-06] MEDS: ALBUTEROL/IPRATROPIUM 2.5MG/0.5MG, 3 ML INLINE SCH ×6 (02:55→22:30)
[2020-02-06] MEDS: ENOXAPARIN 80 MG/0.8 ML SQ SCH ×2 (03:34→16:56)
[2020-02-06] MEDS: PIPERACILLIN/TAZO/PMX 4.5GM 100 ML IV SCH ×4 (03:46→21:43)
[2020-02-06 04:07] LABS: MEAN CORPUSCULAR HEMOGLOBIN 28.7 pg (27.5-34.5); MEAN CORPUSCULAR HGB CONC 33.2 g/dL (33.2-36.2); MEAN CORPUSCULAR VOLUME 86.6 fL (81-97); MEAN PLATELET VOLUME 7.3 fL (7.4-10.4); PLATELET COUNT 305 x10^3/uL (130-400); RED CELL DISTRIBUTION WIDTH 17.3 % (9.4-14.8)
[2020-02-06 04:15] LABS: CALCIUM 7.9 mg/dL (8.5-10.1); CHLORIDE 101 mmol/L (98-107)
[2020-02-06 04:18] LABS: D-DIMER 2.66 ug/mlFEU (0.00-0.52)
[2020-02-06 04:25] LABS: ALANINE AMINOTRANSFERASE 63 U/L (12-78); ALBUMIN 1.2 g/dL (3.4-5.0); ALKALINE PHOSPHATASE 136 U/L (45-117); ANION GAP 4 mmol/L (5-15); BILIRUBIN,TOTAL 0.4 mg/dL (0.2-1.0); CREATINE KINASE, TOTAL 22 U/L (39-308); CREATININE 0.43 mg/dL (0.7-1.3); TOTAL PROTEIN 6.3 g/dL (6.4-8.2)
[2020-02-06 04:33] LABS: BASOPHILS # (AUTO) 0.01 x10^3/uL (0-0.1); BASOPHILS % (AUTO) 0 % (0-1); EOSINOPHILS % (AUTO) 0 % (1-7); LYMPHOCYTES # (AUTO) 0.62 x10^3/uL (1-3.4); LYMPHOCYTES % (AUTO) 6 % (22-44); MD SCAN; MONOCYTES # (AUTO) 0.35 x10^3/uL (0.2-0.8); MONOCYTES % (AUTO) 3 % (2-9); NEUTROPHILS # (AUTO) 9.31 x10^3/uL (1.8-6.8); NEUTROPHILS % (AUTO) 91 % (42-75)
[2020-02-06] MEDS: BUDESONIDE 0.5 MG/2 ML INHA INH SCH ×2 (07:22→19:00)
[2020-02-06] MEDS: FENTANYL PF 100 MCG/2ML IVPush PRN (08:51)
[2020-02-06] MEDS: BUSPIRONE 10 MG TABLET PO SCH ×3 (08:51→21:42)
[2020-02-06] MEDS: THIAMINE 100MG TABLET PO SCH (08:51)
[2020-02-06] MEDS: ASCORBIC ACID 500 MG TABLET PO SCH (08:52)
[2020-02-06] MEDS: ZINC SULFATE 220 MG CAPSULE PO SCH (08:52)
[2020-02-06] MEDS: CHOLECALCIFEROL 5,000u TAB PO SCH (08:52)
[2020-02-06] MEDS: AMIODARONE 200 MG TABLET PO SCH ×2 (08:52→21:43)
[2020-02-06] MEDS: SODIUM CHLORIDE FLUSH 10ML SYR IVF SCH ×2 (09:00→21:42)
[2020-02-06] MEDS: PANTOPRAZOLE 40 MG IV IV SCH (11:22)
[2020-02-06] MEDS ORDERED: FUROSEMIDE 40 MG/4 ML IV ONE (11:30)
[2020-02-07] MEDS: PROPOFOL 100 ML IV PRN ×2 (00:14→14:33)
[2020-02-07] MEDS: ALBUTEROL/IPRATROPIUM 2.5MG/0.5MG, 3 ML INLINE SCH ×6 (02:40→23:20)
[2020-02-07] MEDS: ENOXAPARIN 80 MG/0.8 ML SQ SCH ×2 (03:52→14:50)
[2020-02-07] MEDS: FENTANYL PF 100 MCG/2ML IVPush PRN (03:53)
[2020-02-07] MEDS: PIPERACILLIN/TAZO/PMX 4.5GM 100 ML IV SCH ×4 (04:46→21:14)
[2020-02-07 05:07] LABS: ALBUMIN 1.1 g/dL (3.4-5.0); ANION GAP 4 mmol/L (5-15); CALCIUM 7.9 mg/dL (8.5-10.1); CHLORIDE 97 mmol/L (98-107)
[2020-02-07 05:12] LABS: BASOPHILS % (AUTO) 0 % (0-1); EOSINOPHILS # (AUTO) 0.15 x10^3/uL (0-0.4); EOSINOPHILS % (AUTO) 1 % (1-7); LYMPHOCYTES # (AUTO) 0.71 x10^3/uL (1-3.4); LYMPHOCYTES % (AUTO) 6 % (22-44); MD NO; MEAN CORPUSCULAR HEMOGLOBIN 28.8 pg (27.5-34.5); MEAN CORPUSCULAR HGB CONC 33.4 g/dL (33.2-36.2); MEAN CORPUSCULAR VOLUME 86.4 fL (81-97); MEAN PLATELET VOLUME 7.3 fL (7.4-10.4); MONOCYTES # (AUTO) 0.41 x10^3/uL (0.2-0.8); MONOCYTES % (AUTO) 4 % (2-9); NEUTROPHILS # (AUTO) 10.57 x10^3/uL (1.8-6.8); NEUTROPHILS % (AUTO) 89 % (42-75); PLATELET COUNT 348 x10^3/uL (130-400); RED BLOOD COUNT 2.81 x10^6/uL (4.38-5.82); RED CELL DISTRIBUTION WIDTH 17.5 % (9.4-14.8)
[2020-02-07 05:16] LABS: ALANINE AMINOTRANSFERASE 50 U/L (12-78); ALKALINE PHOSPHATASE 135 U/L (45-117); BILIRUBIN,TOTAL 0.3 mg/dL (0.2-1.0); CREATINE KINASE, TOTAL 23 U/L (39-308); CREATININE 0.54 mg/dL (0.7-1.3); TOTAL PROTEIN 6.5 g/dL (6.4-8.2)
[2020-02-07 05:41] LABS: D-DIMER 3.98 ug/mlFEU (0.00-0.52)
[2020-02-07] MEDS: BUDESONIDE 0.5 MG/2 ML INHA INH SCH ×2 (06:48→18:40)
[2020-02-07] MEDS ORDERED: FUROSEMIDE 40 MG/4 ML IV ONE (08:30)
[2020-02-07] MEDS: SODIUM CHLORIDE FLUSH 10ML SYR IVF SCH ×2 (09:00→21:00)
[2020-02-07] MEDS: PANTOPRAZOLE 40 MG IV IV SCH (09:09)
[2020-02-07] MEDS: BUSPIRONE 10 MG TABLET PO SCH ×3 (09:09→21:00)
[2020-02-07] MEDS: CHOLECALCIFEROL 5,000u TAB PO SCH (09:09)
[2020-02-07] MEDS: AMIODARONE 200 MG TABLET PO SCH ×2 (09:10→21:03)
[2020-02-07] MEDS: ZINC SULFATE 220 MG CAPSULE PO SCH (12:07)
[2020-02-07] MEDS: THIAMINE 100MG TABLET PO SCH (12:07)
[2020-02-07] MEDS: ACETAMINOPHEN 325 MG TABLET PO/NG PRN (14:33)
[2020-02-07] MEDS: ASCORBIC ACID 500 MG TABLET PO SCH (15:28)
[2020-02-08] MEDS: PROPOFOL 100 ML IV PRN ×3 (01:06→20:50)
[2020-02-08] MEDS: ALBUTEROL/IPRATROPIUM 2.5MG/0.5MG, 3 ML INLINE SCH ×6 (02:20→22:50)
[2020-02-08] MEDS: ENOXAPARIN 80 MG/0.8 ML SQ SCH ×2 (05:14→16:39)
[2020-02-08] MEDS: PIPERACILLIN/TAZO/PMX 4.5GM 100 ML IV SCH ×3 (05:14→20:50)
[2020-02-08 05:35] LABS: BASOPHILS # (AUTO) 0.01 x10^3/uL (0-0.1); BASOPHILS % (AUTO) 0 % (0-1); EOSINOPHILS % (AUTO) 0 % (1-7); LYMPHOCYTES # (AUTO) 0.69 x10^3/uL (1-3.4); LYMPHOCYTES % (AUTO) 5 % (22-44); MD NO; MEAN CORPUSCULAR HEMOGLOBIN 28.6 pg (27.5-34.5); MEAN CORPUSCULAR VOLUME 86.5 fL (81-97); MEAN PLATELET VOLUME 6.9 fL (7.4-10.4); MONOCYTES # (AUTO) 0.47 x10^3/uL (0.2-0.8); MONOCYTES % (AUTO) 4 % (2-9); NEUTROPHILS # (AUTO) 11.97 x10^3/uL (1.8-6.8); NEUTROPHILS % (AUTO) 91 % (42-75); PLATELET COUNT 372 x10^3/uL (130-400); RED BLOOD COUNT 2.82 x10^6/uL (4.38-5.82); RED CELL DISTRIBUTION WIDTH 16.9 % (9.4-14.8)
[2020-02-08 05:47] LABS: ALBUMIN 1.2 g/dL (3.4-5.0); ANION GAP 5 mmol/L (5-15); CHLORIDE 96 mmol/L (98-107)
[2020-02-08 05:50] LABS: D-DIMER 4.13 ug/mlFEU (0.00-0.52)
[2020-02-08 05:57] LABS: ALANINE AMINOTRANSFERASE 47 U/L (12-78); ALKALINE PHOSPHATASE 165 U/L (45-117); BILIRUBIN,TOTAL 0.3 mg/dL (0.2-1.0); CREATINE KINASE, TOTAL 18 U/L (39-308); CREATININE 0.62 mg/dL (0.7-1.3); TOTAL PROTEIN 6.8 g/dL (6.4-8.2); TRIGLYCERIDES 125 mg/dL (50-200)
[2020-02-08] MEDS: BUDESONIDE 0.5 MG/2 ML INHA INH SCH ×2 (06:56→22:50)
[2020-02-08] MEDS: SODIUM CHLORIDE FLUSH 10ML SYR IVF SCH (08:56)
[2020-02-08] MEDS: PANTOPRAZOLE 40 MG IV IV SCH (08:57)
[2020-02-08] MEDS: CHOLECALCIFEROL 5,000u TAB PO SCH (08:57)
[2020-02-08] MEDS: AMIODARONE 200 MG TABLET PO SCH ×2 (08:58→21:00)
[2020-02-08] MEDS: THIAMINE 100MG TABLET PO SCH (08:59)
[2020-02-08] MEDS: BUSPIRONE 10 MG TABLET PO SCH ×3 (08:59→21:00)
[2020-02-08] MEDS: ZINC SULFATE 220 MG CAPSULE PO SCH (09:00)
[2020-02-08] MEDS: ASCORBIC ACID 500 MG TABLET PO SCH (09:00)
[2020-02-08] MEDS: FENTANYL PF 100 MCG/2ML IVPush PRN (12:43)
[2020-02-09] MEDS: SODIUM CHLORIDE FLUSH 10ML SYR IVF SCH ×3 (00:26→21:18)
[2020-02-09] MEDS: ALBUTEROL/IPRATROPIUM 2.5MG/0.5MG, 3 ML INLINE SCH ×6 (03:00→22:50)
[2020-02-09] MEDS: PIPERACILLIN/TAZO/PMX 4.5GM 100 ML IV SCH ×4 (03:26→22:20)
[2020-02-09] MEDS: ENOXAPARIN 80 MG/0.8 ML SQ SCH ×2 (03:26→16:10)
[2020-02-09 06:00] LABS: ALBUMIN 1.2 g/dL (3.4-5.0); ANION GAP 4 mmol/L (5-15); BASOPHILS # (AUTO) 0.01 x10^3/uL (0-0.1); BASOPHILS % (AUTO) 0 % (0-1); CHLORIDE 96 mmol/L (98-107); EOSINOPHILS % (AUTO) 0 % (1-7); LYMPHOCYTES # (AUTO) 0.84 x10^3/uL (1-3.4); LYMPHOCYTES % (AUTO) 8 % (22-44); MD NO; MEAN CORPUSCULAR HEMOGLOBIN 28.1 pg (27.5-34.5); MEAN CORPUSCULAR HGB CONC 32.3 g/dL (33.2-36.2); MEAN CORPUSCULAR VOLUME 86.8 fL (81-97); MEAN PLATELET VOLUME 6.7 fL (7.4-10.4); MONOCYTES # (AUTO) 0.44 x10^3/uL (0.2-0.8); MONOCYTES % (AUTO) 4 % (2-9); NEUTROPHILS # (AUTO) 8.86 x10^3/uL (1.8-6.8); NEUTROPHILS % (AUTO) 87 % (42-75); PLATELET COUNT 412 x10^3/uL (130-400); RED BLOOD COUNT 2.75 x10^6/uL (4.38-5.82); RED CELL DISTRIBUTION WIDTH 16.6 % (9.4-14.8)
[2020-02-09 06:03] LABS: ALANINE AMINOTRANSFERASE 44 U/L (12-78); ALKALINE PHOSPHATASE 141 U/L (45-117); BILIRUBIN,TOTAL 0.3 mg/dL (0.2-1.0); CREATININE 0.61 mg/dL (0.7-1.3); TOTAL PROTEIN 6.9 g/dL (6.4-8.2); TROPONIN I < 0.015 ng/mL (0.000-0.045)
[2020-02-09 06:06] LABS: D-DIMER 3.6 ug/mlFEU (0.00-0.52)
[2020-02-09 06:10] LABS: CREATINE KINASE, TOTAL 17 U/L (39-308)
[2020-02-09] MEDS: BUDESONIDE 0.5 MG/2 ML INHA INH SCH ×2 (06:48→19:35)
[2020-02-09] MEDS: PANTOPRAZOLE 40 MG IV IV SCH (08:36)
[2020-02-09] MEDS: ASCORBIC ACID 500 MG TABLET PO SCH (08:37)
[2020-02-09] MEDS: ZINC SULFATE 220 MG CAPSULE PO SCH (08:37)
[2020-02-09] MEDS: THIAMINE 100MG TABLET PO SCH (08:38)
[2020-02-09] MEDS: BUSPIRONE 10 MG TABLET PO SCH ×3 (08:38→21:18)
[2020-02-09] MEDS: CHOLECALCIFEROL 5,000u TAB PO SCH (08:38)
[2020-02-09] MEDS: AMIODARONE 200 MG TABLET PO SCH ×2 (08:38→21:18)
[2020-02-09] MEDS: PROPOFOL 100 ML IV PRN (16:11)
[2020-02-10] MEDS: ALBUTEROL/IPRATROPIUM 2.5MG/0.5MG, 3 ML INLINE SCH ×6 (03:00→23:10)
[2020-02-10] MEDS: ENOXAPARIN 80 MG/0.8 ML SQ SCH ×2 (04:17→16:16)
[2020-02-10] MEDS: PIPERACILLIN/TAZO/PMX 4.5GM 100 ML IV SCH ×4 (04:17→21:05)
[2020-02-10 04:48] LABS: BASOPHILS # (AUTO) 0.03 x10^3/uL (0-0.1); BASOPHILS % (AUTO) 0 % (0-1); EOSINOPHILS % (AUTO) 0 % (1-7); LYMPHOCYTES # (AUTO) 0.97 x10^3/uL (1-3.4); LYMPHOCYTES % (AUTO) 11 % (22-44); MD NO; MEAN CORPUSCULAR HEMOGLOBIN 28.4 pg (27.5-34.5); MEAN CORPUSCULAR HGB CONC 33.1 g/dL (33.2-36.2); MEAN CORPUSCULAR VOLUME 85.9 fL (81-97); MEAN PLATELET VOLUME 6.6 fL (7.4-10.4); MONOCYTES # (AUTO) 0.34 x10^3/uL (0.2-0.8); MONOCYTES % (AUTO) 4 % (2-9); NEUTROPHILS # (AUTO) 7.61 x10^3/uL (1.8-6.8); NEUTROPHILS % (AUTO) 85 % (42-75); PLATELET COUNT 451 x10^3/uL (130-400); RED CELL DISTRIBUTION WIDTH 16.3 % (9.4-14.8)
[2020-02-10 05:00] LABS: ALANINE AMINOTRANSFERASE 40 U/L (12-78); ALBUMIN 1.2 g/dL (3.4-5.0); ANION GAP 3 mmol/L (5-15); CALCIUM 7.8 mg/dL (8.5-10.1); CHLORIDE 96 mmol/L (98-107)
[2020-02-10 05:03] LABS: ALKALINE PHOSPHATASE 140 U/L (45-117); BILIRUBIN,TOTAL 0.2 mg/dL (0.2-1.0); CREATINE KINASE, TOTAL 19 U/L (39-308); CREATININE 0.58 mg/dL (0.7-1.3); TOTAL PROTEIN 6.9 g/dL (6.4-8.2); TROPONIN I < 0.015 ng/mL (0.000-0.045)
[2020-02-10 05:04] LABS: D-DIMER 3.76 ug/mlFEU (0.00-0.52)
[2020-02-10] MEDS: BUDESONIDE 0.5 MG/2 ML INHA INH SCH ×2 (07:10→20:10)
[2020-02-10] MEDS: PANTOPRAZOLE 40 MG IV IV SCH (08:22)
[2020-02-10] MEDS: BUSPIRONE 10 MG TABLET PO SCH ×3 (08:23→21:03)
[2020-02-10] MEDS: ZINC SULFATE 220 MG CAPSULE PO SCH (08:23)
[2020-02-10] MEDS: AMIODARONE 200 MG TABLET PO SCH ×2 (08:23→21:04)
[2020-02-10] MEDS: CHOLECALCIFEROL 5,000u TAB PO SCH (08:24)
[2020-02-10] MEDS: ASCORBIC ACID 500 MG TABLET PO SCH (08:24)
[2020-02-10] MEDS: THIAMINE 100MG TABLET PO SCH (08:24)
[2020-02-10] MEDS: SODIUM CHLORIDE FLUSH 10ML SYR IVF SCH ×2 (08:25→21:00)
[2020-02-10] MEDS: methylPREDNISolone SOD SUCC 40 MG/ML IV SCH ×2 (11:10→21:03)
[2020-02-10] MEDS: PROPOFOL 100 ML IV PRN (16:45)
[2020-02-11] MEDS: FENTANYL PF 100 MCG/2ML IVPush PRN (00:54)
[2020-02-11] MEDS: ALBUTEROL/IPRATROPIUM 2.5MG/0.5MG, 3 ML INLINE SCH ×2 (03:00→07:00)
[2020-02-11] MEDS: ENOXAPARIN 80 MG/0.8 ML SQ SCH ×2 (03:15→15:45)
[2020-02-11 03:39] LABS: ALANINE AMINOTRANSFERASE 40 U/L (12-78); ALBUMIN 1.3 g/dL (3.4-5.0); ANION GAP 4 mmol/L (5-15); CALCIUM 8.1 mg/dL (8.5-10.1); CHLORIDE 102 mmol/L (98-107); CREATININE 0.65 mg/dL (0.7-1.3)
[2020-02-11 03:41] LABS: ALKALINE PHOSPHATASE 127 U/L (45-117); BILIRUBIN,TOTAL 0.2 mg/dL (0.2-1.0); TOTAL PROTEIN 7.2 g/dL (6.4-8.2); TRIGLYCERIDES 90 mg/dL (50-200)
[2020-02-11 03:45] LABS: MEAN CORPUSCULAR HEMOGLOBIN 28.4 pg (27.5-34.5); MEAN CORPUSCULAR HGB CONC 32.9 g/dL (33.2-36.2); MEAN CORPUSCULAR VOLUME 86.5 fL (81-97); MEAN PLATELET VOLUME 6.8 fL (7.4-10.4); PLATELET COUNT 452 x10^3/uL (130-400); RED BLOOD COUNT 2.62 x10^6/uL (4.38-5.82); RED CELL DISTRIBUTION WIDTH 16.4 % (9.4-14.8)
[2020-02-11 04:11] LABS: BASOPHILS # (AUTO) 0.01 x10^3/uL (0-0.1); BASOPHILS % (AUTO) 0 % (0-1); EOSINOPHILS # (AUTO) 0.02 x10^3/uL (0-0.4); EOSINOPHILS % (AUTO) 0 % (1-7); LYMPHOCYTES # (AUTO) 0.32 x10^3/uL (1-3.4); LYMPHOCYTES % (AUTO) 6 % (22-44); MD SCAN; MONOCYTES # (AUTO) 0.07 x10^3/uL (0.2-0.8); MONOCYTES % (AUTO) 1 % (2-9); NEUTROPHILS # (AUTO) 5.45 x10^3/uL (1.8-6.8); NEUTROPHILS % (AUTO) 93 % (42-75)
[2020-02-11] MEDS: PIPERACILLIN/TAZO/PMX 4.5GM 100 ML IV SCH ×4 (04:13→21:15)
[2020-02-11] MEDS: BUDESONIDE 0.5 MG/2 ML INHA INH SCH (07:12)
[2020-02-11] MEDS: SODIUM CHLORIDE FLUSH 10ML SYR IVF SCH ×2 (07:59→21:14)
[2020-02-11] MEDS: methylPREDNISolone SOD SUCC 40 MG/ML IV SCH ×2 (07:59→21:14)
[2020-02-11] MEDS: AMIODARONE 200 MG TABLET PO SCH ×2 (07:59→21:14)
[2020-02-11] MEDS: PANTOPRAZOLE 40 MG IV IV SCH (07:59)
[2020-02-11] MEDS: BUSPIRONE 10 MG TABLET PO SCH ×3 (08:00→21:14)
[2020-02-11] MEDS: CHOLECALCIFEROL 5,000u TAB PO SCH (08:00)
[2020-02-11] MEDS: ASCORBIC ACID 500 MG TABLET PO SCH (08:00)
[2020-02-11] MEDS: ZINC SULFATE 220 MG CAPSULE PO SCH (08:00)
[2020-02-11] MEDS: THIAMINE 100MG TABLET PO SCH (08:00)
[2020-02-11] MEDS: PROPOFOL 100 ML IV PRN (08:06)
[2020-02-12] MEDS: PIPERACILLIN/TAZO/PMX 4.5GM 100 ML IV SCH ×4 (04:18→21:48)
[2020-02-12] MEDS: ENOXAPARIN 80 MG/0.8 ML SQ SCH ×2 (04:20→15:41)
[2020-02-12 04:38] LABS: BASOPHILS % (AUTO) 0 % (0-1); EOSINOPHILS # (AUTO) 0.11 x10^3/uL (0-0.4); EOSINOPHILS % (AUTO) 1 % (1-7); LYMPHOCYTES # (AUTO) 0.44 x10^3/uL (1-3.4); LYMPHOCYTES % (AUTO) 4 % (22-44); MD NO; MEAN CORPUSCULAR HEMOGLOBIN 28.6 pg (27.5-34.5); MEAN CORPUSCULAR HGB CONC 32.7 g/dL (33.2-36.2); MEAN CORPUSCULAR VOLUME 87.5 fL (81-97); MEAN PLATELET VOLUME 6.5 fL (7.4-10.4); MONOCYTES # (AUTO) 0.27 x10^3/uL (0.2-0.8); MONOCYTES % (AUTO) 2 % (2-9); NEUTROPHILS # (AUTO) 11.91 x10^3/uL (1.8-6.8); NEUTROPHILS % (AUTO) 93 % (42-75); PLATELET COUNT 649 x10^3/uL (130-400); RED BLOOD COUNT 2.92 x10^6/uL (4.38-5.82); RED CELL DISTRIBUTION WIDTH 15.6 % (9.4-14.8)
[2020-02-12 04:47] LABS: ALANINE AMINOTRANSFERASE 53 U/L (12-78); ALBUMIN 1.6 g/dL (3.4-5.0); ANION GAP 2 mmol/L (5-15); CALCIUM 8.5 mg/dL (8.5-10.1); CHLORIDE 102 mmol/L (98-107); CREATININE 0.55 mg/dL (0.7-1.3)
[2020-02-12 04:49] LABS: ALKALINE PHOSPHATASE 134 U/L (45-117); BILIRUBIN,TOTAL 0.3 mg/dL (0.2-1.0); TOTAL PROTEIN 7.9 g/dL (6.4-8.2)
[2020-02-12] MEDS: AMIODARONE 200 MG TABLET PO SCH ×2 (08:30→21:48)
[2020-02-12] MEDS: BUSPIRONE 10 MG TABLET PO SCH ×3 (08:31→21:48)
[2020-02-12] MEDS: ASCORBIC ACID 500 MG TABLET PO SCH (08:31)
[2020-02-12] MEDS: methylPREDNISolone SOD SUCC 40 MG/ML IV SCH ×2 (08:32→21:48)
[2020-02-12] MEDS: CHOLECALCIFEROL 5,000u TAB PO SCH (08:32)
[2020-02-12] MEDS: ZINC SULFATE 220 MG CAPSULE PO SCH (08:32)
[2020-02-12] MEDS: SODIUM CHLORIDE FLUSH 10ML SYR IVF SCH ×2 (08:33→21:49)
[2020-02-12 17:33] VITALS: BP 122/78
[2020-02-13 00:19] VITALS: BP 129/83
[2020-02-13] MEDS: ENOXAPARIN 80 MG/0.8 ML SQ SCH ×2 (03:46→15:27)
[2020-02-13] MEDS: PIPERACILLIN/TAZO/PMX 4.5GM 100 ML IV SCH ×3 (03:46→15:27)
[2020-02-13 04:18] LABS: BASOPHILS % (AUTO) 0 % (0-1); EOSINOPHILS # (AUTO) 0.14 x10^3/uL (0-0.4); EOSINOPHILS % (AUTO) 2 % (1-7); LYMPHOCYTES # (AUTO) 0.39 x10^3/uL (1-3.4); LYMPHOCYTES % (AUTO) 4 % (22-44); MD NO; MEAN CORPUSCULAR HEMOGLOBIN 28.1 pg (27.5-34.5); MEAN CORPUSCULAR VOLUME 87.6 fL (81-97); MEAN PLATELET VOLUME 6.5 fL (7.4-10.4); MONOCYTES # (AUTO) 0.18 x10^3/uL (0.2-0.8); MONOCYTES % (AUTO) 2 % (2-9); NEUTROPHILS # (AUTO) 8.99 x10^3/uL (1.8-6.8); NEUTROPHILS % (AUTO) 93 % (42-75); PLATELET COUNT 667 x10^3/uL (130-400); RED BLOOD COUNT 3.04 x10^6/uL (4.38-5.82); RED CELL DISTRIBUTION WIDTH 15.5 % (9.4-14.8)
[2020-02-13 04:25] LABS: ALANINE AMINOTRANSFERASE 49 U/L (12-78); ALBUMIN 1.5 g/dL (3.4-5.0); ANION GAP 0 mmol/L (5-15); CALCIUM 8.3 mg/dL (8.5-10.1); CHLORIDE 101 mmol/L (98-107); CREATININE 0.44 mg/dL (0.7-1.3)
[2020-02-13 04:27] LABS: ALKALINE PHOSPHATASE 114 U/L (45-117); BILIRUBIN,TOTAL 0.2 mg/dL (0.2-1.0); TOTAL PROTEIN 7.3 g/dL (6.4-8.2)
[2020-02-13 07:05] VITALS: BP 119/81
[2020-02-13] MEDS: methylPREDNISolone SOD SUCC 40 MG/ML IV SCH (08:25)
[2020-02-13] MEDS: ASCORBIC ACID 500 MG TABLET PO SCH (08:26)
[2020-02-13] MEDS: BUSPIRONE 10 MG TABLET PO SCH ×2 (08:26→15:27)
[2020-02-13] MEDS: AMIODARONE 200 MG TABLET PO SCH (08:26)
[2020-02-13] MEDS: CHOLECALCIFEROL 5,000u TAB PO SCH (10:40)
[2020-02-13] MEDS: ZINC SULFATE 220 MG CAPSULE PO SCH (10:40)
[2020-02-13] MEDS: SODIUM CHLORIDE FLUSH 10ML SYR IVF SCH (10:59)
[2020-02-13 12:01] VITALS: BP 127/87
[2020-02-13 19:44] VITALS: BP 131/88
[2020-02-14 00:35] VITALS: BP 137/85
[2020-02-14] MEDS: AMIODARONE 200 MG TABLET PO SCH ×3 (00:48→21:50)
[2020-02-14] MEDS: BUSPIRONE 10 MG TABLET PO SCH ×4 (00:48→21:50)
[2020-02-14] MEDS: PIPERACILLIN/TAZO/PMX 4.5GM 100 ML IV SCH ×4 (00:49→18:27)
[2020-02-14] MEDS: methylPREDNISolone SOD SUCC 40 MG/ML IV SCH ×3 (00:49→21:49)
[2020-02-14] MEDS: SODIUM CHLORIDE FLUSH 10ML SYR IVF SCH ×3 (00:50→21:49)
[2020-02-14] MEDS: ENOXAPARIN 80 MG/0.8 ML SQ SCH ×2 (00:50→13:56)
[2020-02-14 05:35] LABS: MEAN CORPUSCULAR HEMOGLOBIN 28.7 pg (27.5-34.5); MEAN CORPUSCULAR HGB CONC 32.6 g/dL (33.2-36.2); MEAN PLATELET VOLUME 6.6 fL (7.4-10.4); PLATELET COUNT 782 x10^3/uL (130-400); RED BLOOD COUNT 3.41 x10^6/uL (4.38-5.82); RED CELL DISTRIBUTION WIDTH 15.8 % (9.4-14.8)
[2020-02-14 05:44] LABS: ALANINE AMINOTRANSFERASE 48 U/L (12-78); ALBUMIN 1.7 g/dL (3.4-5.0); ANION GAP 2 mmol/L (5-15); CALCIUM 8.8 mg/dL (8.5-10.1); CHLORIDE 97 mmol/L (98-107); CREATININE 0.52 mg/dL (0.7-1.3); TRIGLYCERIDES 144 mg/dL (50-200)
[2020-02-14 05:46] LABS: ALKALINE PHOSPHATASE 117 U/L (45-117); BILIRUBIN,TOTAL 0.2 mg/dL (0.2-1.0); TOTAL PROTEIN 7.6 g/dL (6.4-8.2)
[2020-02-14 06:00] LABS: BASOPHILS % (AUTO) 0 % (0-1); EOSINOPHILS % (AUTO) 0 % (1-7); LYMPHOCYTES # (AUTO) 0.38 x10^3/uL (1-3.4); LYMPHOCYTES % (AUTO) 3 % (22-44); MD SCAN; MONOCYTES % (AUTO) 2 % (2-9); NEUTROPHILS # (AUTO) 11.56 x10^3/uL (1.8-6.8); NEUTROPHILS % (AUTO) 95 % (42-75)
[2020-02-14 07:01] VITALS: BP 127/81
[2020-02-14] MEDS: ASCORBIC ACID 500 MG TABLET PO SCH (08:55)
[2020-02-14] MEDS: ZINC SULFATE 220 MG CAPSULE PO SCH (08:55)
[2020-02-14] MEDS: CHOLECALCIFEROL 5,000u TAB PO SCH (08:56)
[2020-02-14 15:03] VITALS: BP 125/80
[2020-02-14 18:22] LABS: MICROSCOPIC INDICATED
[2020-02-14 18:43] VITALS: BP 141/85
[2020-02-15] MEDS: PIPERACILLIN/TAZO/PMX 4.5GM 100 ML IV SCH ×4 (00:25→18:39)
[2020-02-15 00:28] VITALS: BP 124/73
[2020-02-15] MEDS: ENOXAPARIN 80 MG/0.8 ML SQ SCH ×2 (00:35→11:52)
[2020-02-15 06:38] VITALS: BP 132/81
[2020-02-15 08:57] LABS: ALANINE AMINOTRANSFERASE 43 U/L (12-78); ALBUMIN 1.8 g/dL (3.4-5.0); ANION GAP 1 mmol/L (5-15); CALCIUM 8.7 mg/dL (8.5-10.1); CHLORIDE 98 mmol/L (98-107); CREATININE 0.44 mg/dL (0.7-1.3)
[2020-02-15 08:58] LABS: BASOPHILS % (AUTO) 0 % (0-1); EOSINOPHILS % (AUTO) 0 % (1-7); LYMPHOCYTES # (AUTO) 0.59 x10^3/uL (1-3.4); LYMPHOCYTES % (AUTO) 6 % (22-44); MD NO; MEAN CORPUSCULAR HEMOGLOBIN 28.5 pg (27.5-34.5); MEAN CORPUSCULAR HGB CONC 31.8 g/dL (33.2-36.2); MEAN CORPUSCULAR VOLUME 89.4 fL (81-97); MEAN PLATELET VOLUME 6.1 fL (7.4-10.4); MONOCYTES # (AUTO) 0.38 x10^3/uL (0.2-0.8); MONOCYTES % (AUTO) 4 % (2-9); NEUTROPHILS # (AUTO) 9.15 x10^3/uL (1.8-6.8); NEUTROPHILS % (AUTO) 90 % (42-75); PLATELET COUNT 858 x10^3/uL (130-400); RED BLOOD COUNT 3.33 x10^6/uL (4.38-5.82); RED CELL DISTRIBUTION WIDTH 16.3 % (9.4-14.8)
[2020-02-15 09:00] LABS: ALKALINE PHOSPHATASE 102 U/L (45-117); BILIRUBIN,TOTAL 0.3 mg/dL (0.2-1.0); TOTAL PROTEIN 7.2 g/dL (6.4-8.2)
[2020-02-15] MEDS: methylPREDNISolone SOD SUCC 40 MG/ML IV SCH (09:19)
[2020-02-15] MEDS: ZINC SULFATE 220 MG CAPSULE PO SCH (09:20)
[2020-02-15] MEDS: BUSPIRONE 10 MG TABLET PO SCH ×3 (09:20→20:19)
[2020-02-15] MEDS: CHOLECALCIFEROL 5,000u TAB PO SCH (09:20)
[2020-02-15] MEDS: AMIODARONE 200 MG TABLET PO SCH ×2 (09:20→20:19)
[2020-02-15] MEDS: SODIUM CHLORIDE FLUSH 10ML SYR IVF SCH ×2 (09:21→20:19)
[2020-02-15] MEDS: ASCORBIC ACID 500 MG TABLET PO SCH (09:21)
[2020-02-15 13:08] VITALS: BP 128/71
[2020-02-15 19:55] VITALS: BP 146/92
[2020-02-16] MEDS: ACETAMINOPHEN 325 MG TABLET PO/NG PRN ×2 (00:38→21:41)
[2020-02-16] MEDS: PIPERACILLIN/TAZO/PMX 4.5GM 100 ML IV SCH ×4 (00:38→18:45)
[2020-02-16] MEDS: ENOXAPARIN 80 MG/0.8 ML SQ SCH ×2 (00:38→12:16)
[2020-02-16 00:43] VITALS: BP 133/98
[2020-02-16 06:31] LABS: BASOPHILS # (AUTO) 0.02 x10^3/uL (0-0.1); BASOPHILS % (AUTO) 0 % (0-1); EOSINOPHILS # (AUTO) 0.09 x10^3/uL (0-0.4); EOSINOPHILS % (AUTO) 1 % (1-7); LYMPHOCYTES # (AUTO) 0.97 x10^3/uL (1-3.4); LYMPHOCYTES % (AUTO) 10 % (22-44); MD NO; MEAN CORPUSCULAR HEMOGLOBIN 28.6 pg (27.5-34.5); MEAN CORPUSCULAR HGB CONC 31.9 g/dL (33.2-36.2); MEAN CORPUSCULAR VOLUME 89.6 fL (81-97); MEAN PLATELET VOLUME 6.1 fL (7.4-10.4); MONOCYTES # (AUTO) 0.68 x10^3/uL (0.2-0.8); MONOCYTES % (AUTO) 7 % (2-9); NEUTROPHILS # (AUTO) 8.24 x10^3/uL (1.8-6.8); NEUTROPHILS % (AUTO) 82 % (42-75); PLATELET COUNT 831 x10^3/uL (130-400); RED BLOOD COUNT 3.38 x10^6/uL (4.38-5.82); RED CELL DISTRIBUTION WIDTH 16.8 % (9.4-14.8)
[2020-02-16 06:39] LABS: ALANINE AMINOTRANSFERASE 40 U/L (12-78); ALBUMIN 1.8 g/dL (3.4-5.0); ANION GAP 1 mmol/L (5-15); CALCIUM 8.7 mg/dL (8.5-10.1); CHLORIDE 95 mmol/L (98-107)
[2020-02-16 06:41] LABS: ALKALINE PHOSPHATASE 115 U/L (45-117); BILIRUBIN,TOTAL 0.2 mg/dL (0.2-1.0); TOTAL PROTEIN 7.2 g/dL (6.4-8.2)
[2020-02-16 08:02] VITALS: BP 129/85
[2020-02-16] MEDS: ASCORBIC ACID 500 MG TABLET PO SCH (08:28)
[2020-02-16] MEDS: ZINC SULFATE 220 MG CAPSULE PO SCH (08:28)
[2020-02-16] MEDS: BUSPIRONE 10 MG TABLET PO SCH ×3 (08:29→20:18)
[2020-02-16] MEDS: AMIODARONE 200 MG TABLET PO SCH ×2 (08:29→20:18)
[2020-02-16] MEDS: SODIUM CHLORIDE FLUSH 10ML SYR IVF SCH ×2 (08:29→20:18)
[2020-02-16] MEDS: CHOLECALCIFEROL 5,000u TAB PO SCH (08:29)
[2020-02-16] MEDS: methylPREDNISolone SOD SUCC 40 MG/ML IV SCH (08:30)
[2020-02-16 12:38] VITALS: BP 141/95
[2020-02-16 20:12] VITALS: BP 135/79
[2020-02-17 00:45] VITALS: BP 121/79
[2020-02-17] MEDS: PIPERACILLIN/TAZO/PMX 4.5GM 100 ML IV SCH ×4 (00:48→18:43)
[2020-02-17] MEDS: ENOXAPARIN 80 MG/0.8 ML SQ SCH ×2 (00:50→13:17)
[2020-02-17 06:43] LABS: BASOPHILS # (AUTO) 0.02 x10^3/uL (0-0.1); BASOPHILS % (AUTO) 0 % (0-1); EOSINOPHILS # (AUTO) 0.13 x10^3/uL (0-0.4); EOSINOPHILS % (AUTO) 2 % (1-7); LYMPHOCYTES # (AUTO) 0.78 x10^3/uL (1-3.4); LYMPHOCYTES % (AUTO) 9 % (22-44); MD NO; MEAN CORPUSCULAR HEMOGLOBIN 29.1 pg (27.5-34.5); MEAN CORPUSCULAR HGB CONC 32.3 g/dL (33.2-36.2); MEAN CORPUSCULAR VOLUME 90.2 fL (81-97); MEAN PLATELET VOLUME 6.3 fL (7.4-10.4); MONOCYTES # (AUTO) 0.55 x10^3/uL (0.2-0.8); MONOCYTES % (AUTO) 6 % (2-9); NEUTROPHILS # (AUTO) 7.32 x10^3/uL (1.8-6.8); NEUTROPHILS % (AUTO) 83 % (42-75); PLATELET COUNT 696 x10^3/uL (130-400); RED BLOOD COUNT 3.34 x10^6/uL (4.38-5.82); RED CELL DISTRIBUTION WIDTH 17.3 % (9.4-14.8)
[2020-02-17 06:50] LABS: ALANINE AMINOTRANSFERASE 35 U/L (12-78); ALBUMIN 1.9 g/dL (3.4-5.0); ANION GAP 0 mmol/L (5-15); CALCIUM 8.5 mg/dL (8.5-10.1); CHLORIDE 96 mmol/L (98-107); CREATININE 0.42 mg/dL (0.7-1.3)
[2020-02-17 06:52] LABS: ALKALINE PHOSPHATASE 102 U/L (45-117); BILIRUBIN,TOTAL 0.2 mg/dL (0.2-1.0); TOTAL PROTEIN 6.8 g/dL (6.4-8.2)
[2020-02-17 08:22] VITALS: BP 115/72
[2020-02-17] MEDS: BUSPIRONE 10 MG TABLET PO SCH ×3 (08:31→20:44)
[2020-02-17] MEDS: ZINC SULFATE 220 MG CAPSULE PO SCH (08:31)
[2020-02-17] MEDS: CHOLECALCIFEROL 5,000u TAB PO SCH (08:31)
[2020-02-17] MEDS: methylPREDNISolone SOD SUCC 40 MG/ML IV SCH (08:32)
[2020-02-17] MEDS: SODIUM CHLORIDE FLUSH 10ML SYR IVF SCH ×2 (08:32→20:42)
[2020-02-17] MEDS: ASCORBIC ACID 500 MG TABLET PO SCH (08:32)
[2020-02-17] MEDS: AMIODARONE 200 MG TABLET PO SCH ×2 (08:32→20:44)
[2020-02-17 12:38] VITALS: BP 124/86
[2020-02-17 19:52] VITALS: BP 127/81
[2020-02-17] MEDS: ACETAMINOPHEN 325 MG TABLET PO/NG PRN (20:43)
[2020-02-18] MEDS: PIPERACILLIN/TAZO/PMX 4.5GM 100 ML IV SCH ×4 (00:41→17:37)
[2020-02-18] MEDS: ENOXAPARIN 80 MG/0.8 ML SQ SCH ×2 (00:41→12:30)
[2020-02-18 01:38] VITALS: BP 130/82
[2020-02-18 06:13] LABS: BASOPHILS # (AUTO) 0.02 x10^3/uL (0-0.1); BASOPHILS % (AUTO) 0 % (0-1); EOSINOPHILS # (AUTO) 0.13 x10^3/uL (0-0.4); EOSINOPHILS % (AUTO) 2 % (1-7); LYMPHOCYTES # (AUTO) 0.83 x10^3/uL (1-3.4); LYMPHOCYTES % (AUTO) 10 % (22-44); MD NO; MEAN CORPUSCULAR HEMOGLOBIN 29.1 pg (27.5-34.5); MEAN CORPUSCULAR VOLUME 90.9 fL (81-97); MEAN PLATELET VOLUME 6.2 fL (7.4-10.4); MONOCYTES % (AUTO) 6 % (2-9); NEUTROPHILS # (AUTO) 6.58 x10^3/uL (1.8-6.8); NEUTROPHILS % (AUTO) 82 % (42-75); PLATELET COUNT 654 x10^3/uL (130-400); RED BLOOD COUNT 3.33 x10^6/uL (4.38-5.82); RED CELL DISTRIBUTION WIDTH 17.8 % (9.4-14.8)
[2020-02-18 06:21] LABS: ALBUMIN 1.8 g/dL (3.4-5.0); ANION GAP 3 mmol/L (5-15); CALCIUM 8.5 mg/dL (8.5-10.1); CHLORIDE 94 mmol/L (98-107)
[2020-02-18 06:24] LABS: ALANINE AMINOTRANSFERASE 29 U/L (12-78); ALKALINE PHOSPHATASE 104 U/L (45-117); BILIRUBIN,TOTAL 0.4 mg/dL (0.2-1.0)
[2020-02-18] MEDS: ZINC SULFATE 220 MG CAPSULE PO SCH (09:00)
[2020-02-18 09:34] VITALS: BP 129/87
[2020-02-18] MEDS: methylPREDNISolone SOD SUCC 40 MG/ML IV SCH (10:24)
[2020-02-18] MEDS: ASCORBIC ACID 500 MG TABLET PO SCH (10:25)
[2020-02-18] MEDS: AMIODARONE 200 MG TABLET PO SCH ×2 (10:25→20:07)
[2020-02-18] MEDS: CHOLECALCIFEROL 5,000u TAB PO SCH (10:25)
[2020-02-18] MEDS: SODIUM CHLORIDE FLUSH 10ML SYR IVF SCH ×2 (10:26→20:06)
[2020-02-18] MEDS: BUSPIRONE 10 MG TABLET PO SCH ×3 (10:26→20:07)
[2020-02-18 12:31] VITALS: BP 113/73
[2020-02-18] MEDS: ACETAMINOPHEN 325 MG TABLET PO/NG PRN (20:08)
[2020-02-18 20:50] VITALS: BP 124/62
[2020-02-19] MEDS: PIPERACILLIN/TAZO/PMX 4.5GM 100 ML IV SCH ×4 (00:13→18:38)
[2020-02-19] MEDS: ENOXAPARIN 80 MG/0.8 ML SQ SCH ×2 (00:13→12:34)
[2020-02-19 01:33] VITALS: BP 110/73
[2020-02-19 06:06] LABS: BASOPHILS # (AUTO) 0.01 x10^3/uL (0-0.1); BASOPHILS % (AUTO) 0 % (0-1); EOSINOPHILS # (AUTO) 0.12 x10^3/uL (0-0.4); EOSINOPHILS % (AUTO) 2 % (1-7); LYMPHOCYTES # (AUTO) 0.87 x10^3/uL (1-3.4); LYMPHOCYTES % (AUTO) 12 % (22-44); MD NO; MEAN CORPUSCULAR HEMOGLOBIN 29.2 pg (27.5-34.5); MEAN CORPUSCULAR VOLUME 91.4 fL (81-97); MEAN PLATELET VOLUME 6.2 fL (7.4-10.4); MONOCYTES # (AUTO) 0.49 x10^3/uL (0.2-0.8); MONOCYTES % (AUTO) 7 % (2-9); NEUTROPHILS % (AUTO) 80 % (42-75); PLATELET COUNT 595 x10^3/uL (130-400); RED BLOOD COUNT 3.46 x10^6/uL (4.38-5.82); RED CELL DISTRIBUTION WIDTH 18.9 % (9.4-14.8)
[2020-02-19 06:15] LABS: ANION GAP 1 mmol/L (5-15); CALCIUM 8.8 mg/dL (8.5-10.1); CHLORIDE 95 mmol/L (98-107)
[2020-02-19 06:20] LABS: ALANINE AMINOTRANSFERASE 28 U/L (12-78); ALKALINE PHOSPHATASE 98 U/L (45-117); BILIRUBIN,TOTAL 0.3 mg/dL (0.2-1.0); CREATININE 0.43 mg/dL (0.7-1.3); TOTAL PROTEIN 7.2 g/dL (6.4-8.2)
[2020-02-19 07:23] VITALS: BP 134/85
[2020-02-19] MEDS: AMIODARONE 200 MG TABLET PO SCH ×2 (08:29→20:50)
[2020-02-19] MEDS: CHOLECALCIFEROL 5,000u TAB PO SCH (08:29)
[2020-02-19] MEDS: ACETAMINOPHEN 325 MG TABLET PO/NG PRN ×2 (08:30→20:49)
[2020-02-19] MEDS: ZINC SULFATE 220 MG CAPSULE PO SCH (08:30)
[2020-02-19] MEDS: methylPREDNISolone SOD SUCC 40 MG/ML IV SCH (08:30)
[2020-02-19] MEDS: BUSPIRONE 10 MG TABLET PO SCH ×3 (08:30→20:49)
[2020-02-19] MEDS: ASCORBIC ACID 500 MG TABLET PO SCH (08:30)
[2020-02-19] MEDS: SODIUM CHLORIDE FLUSH 10ML SYR IVF SCH ×2 (08:30→20:48)
[2020-02-19 14:48] VITALS: BP 119/71
[2020-02-19 19:54] VITALS: BP 128/82
[2020-02-20] MEDS: ENOXAPARIN 80 MG/0.8 ML SQ SCH ×2 (00:52→13:01)
[2020-02-20] MEDS: PIPERACILLIN/TAZO/PMX 4.5GM 100 ML IV SCH ×2 (00:52→06:09)
[2020-02-20 02:01] VITALS: BP 138/68
[2020-02-20 06:24] LABS: BASOPHILS # (AUTO) 0.02 x10^3/uL (0-0.1); BASOPHILS % (AUTO) 0 % (0-1); EOSINOPHILS # (AUTO) 0.08 x10^3/uL (0-0.4); EOSINOPHILS % (AUTO) 1 % (1-7); LYMPHOCYTES # (AUTO) 0.82 x10^3/uL (1-3.4); LYMPHOCYTES % (AUTO) 12 % (22-44); MD NO; MEAN CORPUSCULAR VOLUME 90.6 fL (81-97); MEAN PLATELET VOLUME 6.1 fL (7.4-10.4); MONOCYTES # (AUTO) 0.51 x10^3/uL (0.2-0.8); MONOCYTES % (AUTO) 8 % (2-9); NEUTROPHILS # (AUTO) 5.22 x10^3/uL (1.8-6.8); NEUTROPHILS % (AUTO) 79 % (42-75); PLATELET COUNT 494 x10^3/uL (130-400); RED BLOOD COUNT 3.55 x10^6/uL (4.38-5.82); RED CELL DISTRIBUTION WIDTH 18.8 % (9.4-14.8)
[2020-02-20 06:36] LABS: CHLORIDE 95 mmol/L (98-107)
[2020-02-20 06:43] LABS: ALANINE AMINOTRANSFERASE 29 U/L (12-78); ALBUMIN 2.1 g/dL (3.4-5.0); ALKALINE PHOSPHATASE 104 U/L (45-117); ANION GAP 1 mmol/L (5-15); BILIRUBIN,TOTAL 0.2 mg/dL (0.2-1.0); CALCIUM 8.8 mg/dL (8.5-10.1); CREATININE 0.44 mg/dL (0.7-1.3); TOTAL PROTEIN 7.2 g/dL (6.4-8.2)
[2020-02-20 07:18] VITALS: BP 106/66
[2020-02-20] MEDS: methylPREDNISolone SOD SUCC 40 MG/ML IV SCH (10:40)
[2020-02-20] MEDS: SODIUM CHLORIDE FLUSH 10ML SYR IVF SCH ×2 (10:41→20:07)
[2020-02-20] MEDS: BUSPIRONE 10 MG TABLET PO SCH ×3 (10:41→21:07)
[2020-02-20] MEDS: CHOLECALCIFEROL 5,000u TAB PO SCH (10:41)
[2020-02-20] MEDS: AMIODARONE 200 MG TABLET PO SCH ×2 (10:41→21:08)
[2020-02-20] MEDS: ZINC SULFATE 220 MG CAPSULE PO SCH (10:42)
[2020-02-20] MEDS: ASCORBIC ACID 500 MG TABLET PO SCH (10:42)
[2020-02-20 14:01] VITALS: BP 129/86
[2020-02-20 18:59] VITALS: BP 120/76
[2020-02-20] MEDS: ACETAMINOPHEN 325 MG TABLET PO/NG PRN (20:08)
[2020-02-21] MEDS: ENOXAPARIN 80 MG/0.8 ML SQ SCH ×2 (00:07→13:15)
[2020-02-21 00:51] VITALS: BP 116/76
[2020-02-21] MEDS: ACETAMINOPHEN 325 MG TABLET PO/NG PRN ×2 (04:18→20:09)
[2020-02-21 05:44] LABS: BASOPHILS # (AUTO) 0.03 x10^3/uL (0-0.1); BASOPHILS % (AUTO) 0 % (0-1); EOSINOPHILS # (AUTO) 0.04 x10^3/uL (0-0.4); EOSINOPHILS % (AUTO) 1 % (1-7); LYMPHOCYTES # (AUTO) 1.04 x10^3/uL (1-3.4); LYMPHOCYTES % (AUTO) 12 % (22-44); MD NO; MEAN CORPUSCULAR VOLUME 90.8 fL (81-97); MONOCYTES # (AUTO) 0.71 x10^3/uL (0.2-0.8); MONOCYTES % (AUTO) 8 % (2-9); NEUTROPHILS # (AUTO) 6.71 x10^3/uL (1.8-6.8); NEUTROPHILS % (AUTO) 79 % (42-75); PLATELET COUNT 555 x10^3/uL (130-400); RED BLOOD COUNT 3.72 x10^6/uL (4.38-5.82); RED CELL DISTRIBUTION WIDTH 18.3 % (9.4-14.8)
[2020-02-21 06:11] LABS: CHLORIDE 98 mmol/L (98-107)
[2020-02-21 06:17] LABS: ALANINE AMINOTRANSFERASE 25 U/L (12-78); ALBUMIN 2.3 g/dL (3.4-5.0); ALKALINE PHOSPHATASE 104 U/L (45-117); ANION GAP 5 mmol/L (5-15); BILIRUBIN,TOTAL 0.4 mg/dL (0.2-1.0); CALCIUM 9.1 mg/dL (8.5-10.1); CREATININE 0.45 mg/dL (0.7-1.3); TOTAL PROTEIN 7.5 g/dL (6.4-8.2)
[2020-02-21] MEDS: ZINC SULFATE 220 MG CAPSULE PO SCH (09:19)
[2020-02-21] MEDS: ASCORBIC ACID 500 MG TABLET PO SCH (09:19)
[2020-02-21] MEDS: BUSPIRONE 10 MG TABLET PO SCH ×3 (09:19→20:09)
[2020-02-21] MEDS: methylPREDNISolone SOD SUCC 40 MG/ML IV SCH (09:19)
[2020-02-21] MEDS: CHOLECALCIFEROL 5,000u TAB PO SCH (09:20)
[2020-02-21] MEDS: SODIUM CHLORIDE FLUSH 10ML SYR IVF SCH ×2 (09:20→20:09)
[2020-02-21] MEDS: AMIODARONE 200 MG TABLET PO SCH ×2 (09:20→20:09)
[2020-02-21 09:22] VITALS: BP 119/76
[2020-02-21 14:22] VITALS: BP 121/75
[2020-02-21 20:12] VITALS: BP 132/79
[2020-02-22] MEDS: ENOXAPARIN 80 MG/0.8 ML SQ SCH ×2 (00:40→12:37)
[2020-02-22 01:51] VITALS: BP 130/84
[2020-02-22 05:34] LABS: BASOPHILS # (AUTO) 0.03 x10^3/uL (0-0.1); BASOPHILS % (AUTO) 0 % (0-1); EOSINOPHILS # (AUTO) 0.11 x10^3/uL (0-0.4); EOSINOPHILS % (AUTO) 1 % (1-7); LYMPHOCYTES # (AUTO) 1.29 x10^3/uL (1-3.4); LYMPHOCYTES % (AUTO) 13 % (22-44); MD NO; MEAN CORPUSCULAR HEMOGLOBIN 29.2 pg (27.5-34.5); MEAN CORPUSCULAR VOLUME 91.2 fL (81-97); MEAN PLATELET VOLUME 6.9 fL (7.4-10.4); MONOCYTES # (AUTO) 0.78 x10^3/uL (0.2-0.8); MONOCYTES % (AUTO) 8 % (2-9); NEUTROPHILS # (AUTO) 7.41 x10^3/uL (1.8-6.8); NEUTROPHILS % (AUTO) 77 % (42-75); PLATELET COUNT 482 x10^3/uL (130-400); RED BLOOD COUNT 3.96 x10^6/uL (4.38-5.82); RED CELL DISTRIBUTION WIDTH 18.5 % (9.4-14.8)
[2020-02-22 05:35] LABS: ALANINE AMINOTRANSFERASE 28 U/L (12-78); ALBUMIN 2.4 g/dL (3.4-5.0); ANION GAP 1 mmol/L (5-15); CHLORIDE 103 mmol/L (98-107); CREATININE 0.49 mg/dL (0.7-1.3)
[2020-02-22 05:37] LABS: ALKALINE PHOSPHATASE 105 U/L (45-117); BILIRUBIN,TOTAL 0.3 mg/dL (0.2-1.0); TOTAL PROTEIN 7.7 g/dL (6.4-8.2)
[2020-02-22 08:35] VITALS: BP 127/81
[2020-02-22] MEDS: methylPREDNISolone SOD SUCC 40 MG/ML IV SCH (08:43)
[2020-02-22] MEDS: CHOLECALCIFEROL 5,000u TAB PO SCH (08:44)
[2020-02-22] MEDS: BUSPIRONE 10 MG TABLET PO SCH ×3 (08:44→20:54)
[2020-02-22] MEDS: SODIUM CHLORIDE FLUSH 10ML SYR IVF SCH ×2 (08:44→21:00)
[2020-02-22] MEDS: AMIODARONE 200 MG TABLET PO SCH ×2 (08:44→20:54)
[2020-02-22] MEDS: ZINC SULFATE 220 MG CAPSULE PO SCH (08:44)
[2020-02-22] MEDS: ASCORBIC ACID 500 MG TABLET PO SCH (08:45)
[2020-02-22 16:46] VITALS: BP 124/89
[2020-02-22 19:13] VITALS: BP 121/80
[2020-02-22] MEDS: ACETAMINOPHEN 325 MG TABLET PO/NG PRN (20:54)
[2020-02-23] MEDS ORDERED: ENOXAPARIN 60 MG/0.6 ML SQ SCH
[2020-02-23 00:57] VITALS: BP 123/77
[2020-02-23 06:15] LABS: ALANINE AMINOTRANSFERASE 26 U/L (12-78); ALBUMIN 2.4 g/dL (3.4-5.0); ANION GAP 1 mmol/L (5-15); CALCIUM 9.3 mg/dL (8.5-10.1); CHLORIDE 103 mmol/L (98-107); CREATININE 0.51 mg/dL (0.7-1.3)
[2020-02-23 06:17] LABS: ALKALINE PHOSPHATASE 99 U/L (45-117); BILIRUBIN,TOTAL 0.4 mg/dL (0.2-1.0); TOTAL PROTEIN 7.4 g/dL (6.4-8.2)
[2020-02-23 06:20] LABS: BASOPHILS % (AUTO) 0 % (0-1); EOSINOPHILS # (AUTO) 0.06 x10^3/uL (0-0.4); EOSINOPHILS % (AUTO) 1 % (1-7); LYMPHOCYTES # (AUTO) 0.87 x10^3/uL (1-3.4); LYMPHOCYTES % (AUTO) 9 % (22-44); MD NO; MEAN CORPUSCULAR HEMOGLOBIN 29.1 pg (27.5-34.5); MEAN CORPUSCULAR HGB CONC 32.2 g/dL (33.2-36.2); MEAN CORPUSCULAR VOLUME 90.3 fL (81-97); MEAN PLATELET VOLUME 7.5 fL (7.4-10.4); MONOCYTES # (AUTO) 0.82 x10^3/uL (0.2-0.8); MONOCYTES % (AUTO) 9 % (2-9); NEUTROPHILS # (AUTO) 7.79 x10^3/uL (1.8-6.8); NEUTROPHILS % (AUTO) 82 % (42-75); PLATELET COUNT 380 x10^3/uL (130-400); RED BLOOD COUNT 3.86 x10^6/uL (4.38-5.82); RED CELL DISTRIBUTION WIDTH 18.5 % (9.4-14.8)
[2020-02-23 07:59] VITALS: BP 121/80
[2020-02-23] MEDS: ACETAMINOPHEN 325 MG TABLET PO/NG PRN ×2 (08:32→20:38)
[2020-02-23] MEDS: ZINC SULFATE 220 MG CAPSULE PO SCH (08:32)
[2020-02-23] MEDS: BUSPIRONE 10 MG TABLET PO SCH ×3 (08:32→20:38)
[2020-02-23] MEDS: methylPREDNISolone SOD SUCC 40 MG/ML IV SCH (08:33)
[2020-02-23] MEDS: AMIODARONE 200 MG TABLET PO SCH ×2 (08:33→20:37)
[2020-02-23] MEDS: ASCORBIC ACID 500 MG TABLET PO SCH (08:33)
[2020-02-23] MEDS: CHOLECALCIFEROL 5,000u TAB PO SCH (08:33)
[2020-02-23] MEDS: SODIUM CHLORIDE FLUSH 10ML SYR IVF SCH ×2 (08:34→20:37)
[2020-02-23] MEDS: ENOXAPARIN 80 MG/0.8 ML SQ SCH (13:09)
[2020-02-23 13:18] VITALS: BP 111/71
[2020-02-23 20:00] VITALS: BP 129/79
[2020-02-24] MEDS: ENOXAPARIN 80 MG/0.8 ML SQ SCH ×2 (00:10→14:14)
[2020-02-24 02:11] VITALS: BP 115/70
[2020-02-24 06:36] LABS: BASOPHILS # (AUTO) 0.02 x10^3/uL (0-0.1); BASOPHILS % (AUTO) 0 % (0-1); EOSINOPHILS # (AUTO) 0.01 x10^3/uL (0-0.4); EOSINOPHILS % (AUTO) 0 % (1-7); LYMPHOCYTES # (AUTO) 0.93 x10^3/uL (1-3.4); LYMPHOCYTES % (AUTO) 9 % (22-44); MD NO; MEAN CORPUSCULAR HEMOGLOBIN 29.3 pg (27.5-34.5); MEAN CORPUSCULAR HGB CONC 32.4 g/dL (33.2-36.2); MEAN CORPUSCULAR VOLUME 90.2 fL (81-97); MEAN PLATELET VOLUME 7.6 fL (7.4-10.4); MONOCYTES # (AUTO) 0.86 x10^3/uL (0.2-0.8); MONOCYTES % (AUTO) 8 % (2-9); NEUTROPHILS # (AUTO) 8.98 x10^3/uL (1.8-6.8); NEUTROPHILS % (AUTO) 83 % (42-75); PLATELET COUNT 335 x10^3/uL (130-400); RED BLOOD COUNT 3.71 x10^6/uL (4.38-5.82); RED CELL DISTRIBUTION WIDTH 18.5 % (9.4-14.8)
[2020-02-24 06:46] LABS: ALANINE AMINOTRANSFERASE 24 U/L (12-78); ALBUMIN 2.3 g/dL (3.4-5.0); ANION GAP 1 mmol/L (5-15); CALCIUM 9.1 mg/dL (8.5-10.1); CHLORIDE 104 mmol/L (98-107); CREATININE 0.47 mg/dL (0.7-1.3)
[2020-02-24 06:48] LABS: ALKALINE PHOSPHATASE 91 U/L (45-117); BILIRUBIN,TOTAL 0.2 mg/dL (0.2-1.0)
[2020-02-24] MEDS: CHOLECALCIFEROL 5,000u TAB PO SCH (09:59)
[2020-02-24] MEDS: ACETAMINOPHEN 325 MG TABLET PO/NG PRN (09:59)
[2020-02-24] MEDS: ASCORBIC ACID 500 MG TABLET PO SCH (09:59)
[2020-02-24] MEDS: BUSPIRONE 10 MG TABLET PO SCH ×3 (09:59→22:15)
[2020-02-24] MEDS: methylPREDNISolone SOD SUCC 40 MG/ML IV SCH (09:59)
[2020-02-24] MEDS: AMIODARONE 200 MG TABLET PO SCH ×2 (10:00→22:16)
[2020-02-24] MEDS: ZINC SULFATE 220 MG CAPSULE PO SCH (10:00)
[2020-02-24] MEDS: SODIUM CHLORIDE FLUSH 10ML SYR IVF SCH ×2 (10:00→22:15)
[2020-02-24 11:09] VITALS: BP 96/57
[2020-02-24 14:25] VITALS: BP 115/69
[2020-02-24] MEDS: SENNA/DOCUSATE TABLET NG PRN (18:16)
[2020-02-24 22:07] VITALS: BP 119/79
[2020-02-25] MEDS: ENOXAPARIN 80 MG/0.8 ML SQ SCH ×2 (00:13→13:37)
[2020-02-25 00:24] VITALS: BP 112/66
[2020-02-25 05:58] LABS: MEAN CORPUSCULAR HEMOGLOBIN 29.4 pg (27.5-34.5); MEAN CORPUSCULAR HGB CONC 32.7 g/dL (33.2-36.2); MEAN CORPUSCULAR VOLUME 89.8 fL (81-97); MEAN PLATELET VOLUME 7.8 fL (7.4-10.4); PLATELET COUNT 303 x10^3/uL (130-400); RED BLOOD COUNT 3.69 x10^6/uL (4.38-5.82); RED CELL DISTRIBUTION WIDTH 18.3 % (9.4-14.8)
[2020-02-25 06:12] LABS: ALBUMIN 2.4 g/dL (3.4-5.0); ANION GAP 1 mmol/L (5-15); CALCIUM 9.3 mg/dL (8.5-10.1); CHLORIDE 102 mmol/L (98-107)
[2020-02-25 06:15] LABS: ALANINE AMINOTRANSFERASE 24 U/L (12-78); ALKALINE PHOSPHATASE 94 U/L (45-117); BILIRUBIN,TOTAL 0.4 mg/dL (0.2-1.0); CREATININE 0.59 mg/dL (0.7-1.3); TOTAL PROTEIN 7.4 g/dL (6.4-8.2)
[2020-02-25 06:36] LABS: MD YES
[2020-02-25 06:38] LABS: <PLATELET ESTIMATE> ADEQUATE; <PLT MORPHOLOGY> NORMAL PLT MORPH; ANISOCYTOSIS 1+; BAND#(MANUAL) 0.52 x10^3/uL; BANDS%(MANUAL) 2 % (0-7); LYMPH#(MANUAL) 0.78 x10^3/uL (1-3.4); LYMPHS% (MANUAL) 3 % (22-44); MONOS#(MANUAL) 2.09 x10^3/uL (0.3-2.7); MONOS% (MANUAL) 8 % (2-9); POLYCHROMASIA 1+; SEG#(MANUAL) 22.71 x10^3/uL (1.8-6.8); SEGS% (MANUAL) 87 % (42-75)
[2020-02-25 06:39] LABS: PMNS WITH VACUOLES 1+
[2020-02-25 08:34] VITALS: BP 120/71
[2020-02-25] MEDS: SODIUM CHLORIDE FLUSH 10ML SYR IVF SCH (09:00)
[2020-02-25] MEDS: ASCORBIC ACID 500 MG TABLET PO SCH (09:20)
[2020-02-25] MEDS: AMIODARONE 200 MG TABLET PO SCH (09:20)
[2020-02-25] MEDS: ZINC SULFATE 220 MG CAPSULE PO SCH (09:20)
[2020-02-25] MEDS: CHOLECALCIFEROL 5,000u TAB PO SCH (09:20)
[2020-02-25] MEDS: BUSPIRONE 10 MG TABLET PO SCH ×2 (09:20→17:36)
[2020-02-25] MEDS: methylPREDNISolone SOD SUCC 40 MG/ML IV SCH (09:20)
[2020-02-25 12:56] VITALS: BP 102/66
[2020-02-25] MEDS: SENNA/DOCUSATE TABLET NG PRN (17:36)
[2020-02-25 20:06] VITALS: BP 109/61
[2020-02-26] MEDS: BUSPIRONE 10 MG TABLET PO SCH ×4 (00:27→21:05)
[2020-02-26] MEDS: AMIODARONE 200 MG TABLET PO SCH ×3 (00:27→20:02)
[2020-02-26] MEDS: ENOXAPARIN 80 MG/0.8 ML SQ SCH ×2 (00:27→12:52)
[2020-02-26] MEDS: SODIUM CHLORIDE FLUSH 10ML SYR IVF SCH ×3 (00:27→20:02)
[2020-02-26 01:00] VITALS: BP 116/76
[2020-02-26 05:44] LABS: MICROSCOPIC INDICATED
[2020-02-26 06:08] LABS: ALBUMIN 2.3 g/dL (3.4-5.0); ANION GAP 0 mmol/L (5-15); CALCIUM 9.2 mg/dL (8.5-10.1); CHLORIDE 101 mmol/L (98-107); CREATININE 0.39 mg/dL (0.7-1.3)
[2020-02-26 06:40] LABS: MEAN CORPUSCULAR HEMOGLOBIN 29.2 pg (27.5-34.5); MEAN CORPUSCULAR HGB CONC 32.1 g/dL (33.2-36.2); MEAN CORPUSCULAR VOLUME 90.9 fL (81-97); MEAN PLATELET VOLUME 8.3 fL (7.4-10.4); PLATELET COUNT 283 x10^3/uL (130-400); RED BLOOD COUNT 3.48 x10^6/uL (4.38-5.82); RED CELL DISTRIBUTION WIDTH 18.2 % (9.4-14.8)
[2020-02-26 06:55] LABS: BASOPHILS % (AUTO) 0 % (0-1); EOSINOPHILS # (AUTO) 0.01 x10^3/uL (0-0.4); EOSINOPHILS % (AUTO) 0 % (1-7); LYMPHOCYTES # (AUTO) 1.04 x10^3/uL (1-3.4); LYMPHOCYTES % (AUTO) 5 % (22-44); MD SCAN; MONOCYTES # (AUTO) 1.08 x10^3/uL (0.2-0.8); MONOCYTES % (AUTO) 5 % (2-9); NEUTROPHILS % (AUTO) 90 % (42-75)
[2020-02-26 07:02] VITALS: BP 120/75
[2020-02-26] MEDS: ZINC SULFATE 220 MG CAPSULE PO SCH (08:38)
[2020-02-26] MEDS: CHOLECALCIFEROL 5,000u TAB PO SCH (08:38)
[2020-02-26] MEDS: ASCORBIC ACID 500 MG TABLET PO SCH (08:38)
[2020-02-26] MEDS ORDERED: POTASSIUM PHOSPHATE 44 MEQ in SODIUM CHLORIDE 0.9% 500 ML IV ONE (11:00)
[2020-02-26 12:00] VITALS: BP 104/76
[2020-02-26] MEDS: CIPROFLOXACIN 500 MG/5 ML, ORAL SUSP PO SCH (16:50)
[2020-02-26 18:51] VITALS: BP 117/72
[2020-02-26 20:05] VITALS: BP 108/72
[2020-02-27] MEDS: ENOXAPARIN 60 MG/0.6 ML SQ SCH ×2 (01:00→13:10)
[2020-02-27 01:01] VITALS: BP 110/75
[2020-02-27 03:47] LABS: BASOPHILS # (AUTO) 0.02 x10^3/uL (0-0.1); BASOPHILS % (AUTO) 0 % (0-1); EOSINOPHILS # (AUTO) 0.05 x10^3/uL (0-0.4); EOSINOPHILS % (AUTO) 0 % (1-7); LYMPHOCYTES # (AUTO) 0.79 x10^3/uL (1-3.4); LYMPHOCYTES % (AUTO) 6 % (22-44); MD NO; MEAN CORPUSCULAR HEMOGLOBIN 29.2 pg (27.5-34.5); MEAN CORPUSCULAR HGB CONC 32.3 g/dL (33.2-36.2); MEAN CORPUSCULAR VOLUME 90.2 fL (81-97); MEAN PLATELET VOLUME 7.4 fL (7.4-10.4); MONOCYTES # (AUTO) 0.36 x10^3/uL (0.2-0.8); MONOCYTES % (AUTO) 3 % (2-9); NEUTROPHILS % (AUTO) 91 % (42-75); PLATELET COUNT 258 x10^3/uL (130-400); RED BLOOD COUNT 3.38 x10^6/uL (4.38-5.82)
[2020-02-27 03:56] LABS: ALBUMIN 2.2 g/dL (3.4-5.0); ANION GAP 1 mmol/L (5-15); CALCIUM 8.7 mg/dL (8.5-10.1); CHLORIDE 102 mmol/L (98-107); CREATININE 0.39 mg/dL (0.7-1.3)
[2020-02-27] MEDS: CIPROFLOXACIN 500 MG/5 ML, ORAL SUSP PO SCH ×2 (04:11→15:52)
[2020-02-27 06:56] VITALS: BP 114/75
[2020-02-27] MEDS: CHOLECALCIFEROL 5,000u TAB PO SCH (09:17)
[2020-02-27] MEDS: AMIODARONE 200 MG TABLET PO SCH ×2 (09:17→21:59)
[2020-02-27] MEDS: BUSPIRONE 10 MG TABLET PO SCH ×3 (09:17→21:59)
[2020-02-27] MEDS: ZINC SULFATE 220 MG CAPSULE PO SCH (09:17)
[2020-02-27] MEDS: ASCORBIC ACID 500 MG TABLET PO SCH (09:17)
[2020-02-27] MEDS: SODIUM CHLORIDE FLUSH 10ML SYR IVF SCH ×2 (09:18→21:00)
[2020-02-27 14:14] VITALS: BP 109/72
[2020-02-27 20:04] VITALS: BP 107/69
[2020-02-28 02:08] VITALS: BP 100/55
[2020-02-28] MEDS: ENOXAPARIN 60 MG/0.6 ML SQ SCH ×2 (02:08→12:47)
[2020-02-28] MEDS: CIPROFLOXACIN 500 MG/5 ML, ORAL SUSP PO SCH (03:09)
[2020-02-28 06:44] VITALS: BP 92/60
[2020-02-28] MEDS: ASCORBIC ACID 500 MG TABLET PO SCH (08:20)
[2020-02-28] MEDS: FLUCONAZOLE 100 MG TABLET PO SCH (08:20)
[2020-02-28] MEDS: AMIODARONE 200 MG TABLET PO SCH ×2 (08:20→22:10)
[2020-02-28] MEDS: ZINC SULFATE 220 MG CAPSULE PO SCH (08:21)
[2020-02-28] MEDS: BUSPIRONE 10 MG TABLET PO SCH ×3 (08:21→21:08)
[2020-02-28] MEDS: SODIUM CHLORIDE FLUSH 10ML SYR IVF SCH ×2 (08:21→21:08)
[2020-02-28] MEDS: CHOLECALCIFEROL 5,000u TAB PO SCH (08:21)
[2020-02-28] MEDS ORDERED: CEFAZOLIN 1,000 MG IM SCH (09:30)
[2020-02-28] MEDS: CEFAZOLIN PMX 1GM/50ML 50 ML IV SCH ×2 (11:14→20:11)
[2020-02-28] MEDS: ACETAMINOPHEN 325 MG TABLET PO/NG PRN (12:47)
[2020-02-28 14:08] VITALS: BP 90/58
[2020-02-28 17:16] VITALS: BP 101/63
[2020-02-28 20:30] VITALS: BP 103/66
[2020-02-29] MEDS: ENOXAPARIN 60 MG/0.6 ML SQ SCH (01:20)
[2020-02-29 02:30] VITALS: BP 111/67
[2020-02-29] MEDS: CEFAZOLIN PMX 1GM/50ML 50 ML IV SCH ×2 (03:59→12:37)
[2020-02-29 05:39] LABS: BASOPHILS # (AUTO) 0.05 x10^3/uL (0-0.1); BASOPHILS % (AUTO) 1 % (0-1); EOSINOPHILS % (AUTO) 1 % (1-7); LYMPHOCYTES # (AUTO) 0.74 x10^3/uL (1-3.4); LYMPHOCYTES % (AUTO) 7 % (22-44); MD NO; MEAN CORPUSCULAR HEMOGLOBIN 29.2 pg (27.5-34.5); MEAN CORPUSCULAR HGB CONC 32.4 g/dL (33.2-36.2); MEAN CORPUSCULAR VOLUME 90.2 fL (81-97); MONOCYTES # (AUTO) 0.55 x10^3/uL (0.2-0.8); MONOCYTES % (AUTO) 5 % (2-9); NEUTROPHILS # (AUTO) 9.31 x10^3/uL (1.8-6.8); NEUTROPHILS % (AUTO) 87 % (42-75); PLATELET COUNT 201 x10^3/uL (130-400); RED BLOOD COUNT 3.05 x10^6/uL (4.38-5.82); RED CELL DISTRIBUTION WIDTH 18.4 % (9.4-14.8)
[2020-02-29 06:46] VITALS: BP 114/70
[2020-02-29] MEDS: ZINC SULFATE 220 MG CAPSULE PO SCH (08:51)
[2020-02-29] MEDS: ASCORBIC ACID 500 MG TABLET PO SCH (08:51)
[2020-02-29] MEDS: FLUCONAZOLE 100 MG TABLET PO SCH (08:51)
[2020-02-29] MEDS: CHOLECALCIFEROL 5,000u TAB PO SCH (08:51)
[2020-02-29] MEDS: BUSPIRONE 10 MG TABLET PO SCH ×2 (08:51→17:59)
[2020-02-29] MEDS: SODIUM CHLORIDE FLUSH 10ML SYR IVF SCH (08:52)
[2020-02-29] MEDS: AMIODARONE 200 MG TABLET PO SCH (08:52)
[2020-02-29 15:32] VITALS: BP 105/69
[2020-02-29 19:17] VITALS: BP 121/73
[2020-02-29] MEDS: morphine SULFATE 10 MG/ML, 1ML IVPush PRN ×4 (22:44→23:50)
[2020-02-29] MEDS ORDERED: SCOPOLAMINE 1MG PATCH TD PRN (23:00)
[2020-02-29] MEDS ORDERED: ATROPINE OPHTH SOLN 1%, 5ML PO PRN (23:00)
[2020-03-01] MEDS: morphine SULFATE 10 MG/ML, 1ML IVPush PRN ×3 (00:09→07:48)
[2020-03-01] MEDS: LORazepam 2 MG/ML, 1ML IVPush PRN ×3 (00:32→03:23)
[2020-03-01] MEDS ORDERED: morphine SULFATE 100 MG in DEXTROSE 5% 90 ML IV PRN (08:30)
[2020-03-01] MEDS ORDERED: ASPIRIN 81 MG TABLET CHEW PO SCH (09:00)
[2020-03-01] MEDS ORDERED: ENOXAPARIN 40 MG/0.4 ML SQ SCH (12:00)
== END 2020-03-01 10:50 | disposition expired | DRG 720 ==
LOC: ED 09:49 → EDIP 10:43 → ICU 13:35 → 4NW 02-12 11:54 → 3N 02-28 15:21 → 3WST 03-01 01:12
PROVIDERS: ADMIT Internal Medicine; ATTEND Internal Medicine
PROC: 02HV33Z Insertion of Infusion Device into Superior Vena Cava, Percutaneous Approach (ICD-10-PCS; principal; 2020-01-30)
PROC: 5A1955Z Respiratory Ventilation, Greater than 96 Consecutive Hours (ICD-10-PCS; 2020-01-30)
PROC: 0BH17EZ Insertion of Endotracheal Airway into Trachea, Via Natural or Artificial Opening (ICD-10-PCS; 2020-01-30)
DX: A40.9 Streptococcal sepsis, unspecified (principal); U07.1 COVID-19; J96.21 Acute and chronic respiratory failure with hypoxia; R65.21 Severe sepsis with septic shock; G93.41 Metabolic encephalopathy; B49 Unspecified mycosis; J12.89 Other viral pneumonia; I48.0 Paroxysmal atrial fibrillation; E87.1 Hypo-osmolality and hyponatremia; Z93.0 Tracheostomy status; Z99.81 Dependence on supplemental oxygen; T83.518A Infection and inflammatory reaction due to other urinary catheter, initial encounter; E87.2 Acidosis; I27.20 Pulmonary hypertension, unspecified; E88.09 Other disorders of plasma-protein metabolism, not elsewhere classified; J96.22 Acute and chronic respiratory failure with hypercapnia; D63.8 Anemia in other chronic diseases classified elsewhere; N39.0 Urinary tract infection, site not specified; L03.90 Cellulitis, unspecified; I25.10 Atherosclerotic heart disease of native coronary artery without angina pectoris; Z66 Do not resuscitate; F17.210 Nicotine dependence, cigarettes, uncomplicated; G89.29 Other chronic pain; F41.9 Anxiety disorder, unspecified; I73.1 Thromboangiitis obliterans [Buerger's disease]; E87.5 Hyperkalemia; M54.9 Dorsalgia, unspecified; E16.2 Hypoglycemia, unspecified; R73.9 Hyperglycemia, unspecified; J44.1 Chronic obstructive pulmonary disease with (acute) exacerbation; B96.1 Klebsiella pneumoniae [K. pneumoniae] as the cause of diseases classified elsewhere; I99.8 Other disorder of circulatory system; R00.0 Tachycardia, unspecified; I82.492 Acute embolism and thrombosis of other specified deep vein of left lower extremity; F17.200 Nicotine dependence, unspecified, uncomplicated; R53.81 Other malaise; I48.92 Unspecified atrial flutter; I50.32 Chronic diastolic (congestive) heart failure; J44.0 Chronic obstructive pulmonary disease with (acute) lower respiratory infection; S40.022A Contusion of left upper arm, initial encounter; Y84.6 Urinary catheterization as the cause of abnormal reaction of the patient, or of later complication, without mention of misadventure at the time of the procedure; Z51.5 Encounter for palliative care; Z79.52 Long term (current) use of systemic steroids
CPT/HCPCS: 31500; 36415; 36556; 36600; 71045; 74018; 80048; 80053; 80069; 80202; 81001; 82247; 82533; 82550; 82728; 82803; 82962; 83605; 83615; 83735; 83880; 84145; 84478; 84484; 85025; 85379; 85384; 85610; 85730; 86140; 86850; 86900; 87040; 87070; 87077; 87081; 87086; 87106; 87147; 87181; 87186; 87205; 93005; 93926; 93970; 94002; 94003; 94640; 96374; 96375; 96376; G0378; J0456; J0690; J1644; J1650; J1940; J2250; J2543; J2704; J3010; J3370; J7060; J7613; J7626; Q9967; C9113; J0282; J0330; J1815; J2060; J2270; J2370; J2920; J2930; J7030; J7040; J7050; U0001-CS